=== PATIENT | female | born 1990 | race Caucasian/White ===

== ENCOUNTER 2019-08-19 15:52 | Emergency (ER) | payer SELFPAY | END 2019-08-19 18:35 | disposition home or self-care (01) | PROVIDERS: Emergency Provider Family Medicine; Visit Provider Family Medicine | DX: R10.84 Generalized abdominal pain (principal); J45.909 Unspecified asthma, uncomplicated; Z87.440 Personal history of urinary (tract) infections; F17.210 Nicotine dependence, cigarettes, uncomplicated; Z88.5 Allergy status to narcotic agent; Z91.040 Latex allergy status; Z88.2 Allergy status to sulfonamides | CPT/HCPCS: 36415; 70470; 74177; 80053; 81001; 83690; 84146; 84703; 85025; 96361; 96374; 96375; 96376; 99285; J2270; J2405 ×2; Q9967 ×2 ==

== ENCOUNTER 2019-09-20 23:27 | Emergency (ER) | payer SELFPAY ==
[2019-09-20 23:28] VITALS: BP 120/73; PULSE 86; RESP 16; O2SAT 98
[2019-09-20 23:32] VITALS: BP 120/70; PULSE 87; RESP 15; TEMP 36.2; O2SAT 100; BMI 23.3
[2019-09-20 23:52] LABS: HCG Qualitative Urine. Negative (Negative)
[2019-09-20 23:59] LABS: Basophils % 0.5 %; Eosinophils # 0.1 10^3/uL (0.0-0.8); Eosinophils % 1.5 %; Hematocrit 36.8 % (37.0-47.0); Hemoglobin 12.2 g/dL (11.5-15.3); Lymphocytes # 1.6 10^3/uL (0.8-4.8); Lymphocytes % 18.2 %; Mean Corpuscular HGB Conc 33.2 g/dL (30.0-36.0); Mean Corpuscular Hemoglobin 30.4 pg (28.0-34.0); Mean Corpuscular Volume 91.8 fL (81-99); Mean Platelet Volume 9.9 fL (7.4-10.4); Monocytes # 0.5 10^3/uL (0.2-0.9); Monocytes % 5.4 %; Neutrophils # 6.4 10^3/uL (1.8-7.7); Neutrophils % 74.3 %; Nucleated Red Blood Cells % 0 %; Platelet Count 274 10^3/cmm (130-400); Red Blood Count 4.01 10^6/uL (4.1-5.3); Red Cell Distribution Width 11.7 % (12.1-15.1); White Blood Count 8.6 10^3/uL (4.0-10.0)
[2019-09-21 00:15] LABS: Alanine Aminotransferase 15 U/L (0-33); Albumin Level 4.3 g/dL (3.5-5.2); Alkaline Phosphatase 58 IU/L (35-105); Anion Gap 15.3 (5-19); Aspartate Amino Transferase 19 U/L (0-32); Blood Urea Nitrogen 10 mg/dL (6-20); Calcium 9.3 mg/dL (8.5-10.5); Carbon Dioxide 23 mmol/L (22-29); Chloride 103 mmol/L (98-107); Glomerular Filtration Rate 119.9 mL/min (90-130); Glucose 140 mg/dL (74-109); Potassium 3.3 mmol/L (3.5-5.1); Sodium 138 mmol/L (136-145); Total Bilirubin 0.3 mg/dL (0.15-1.2); Total Protein 7.3 g/dL (6.6-8.7)
--- NOTE | 2019-09-21 01:06 | PC.NURSE ---
Went out to waiting room to ask patient if she could provide a urine specimen, she stated that she did and also stated that her symptoms were worsening, I quickly informed the charge nurse and was told to bring her back. Brought her back to room 11.
--- NOTE | 2019-09-21 01:10 | ED_ITS ---
Entered by Erin Oakley, acting as scribe for Sep 20, 2019 23:27 HPI - Neuro Symptoms/Deficit General: Chief Complaint: Neuro Symptoms/Deficit Stated Complaint: left sided numbness/dizzy/vomiting Time Seen by Provider: 09/21/19 01:08 Source: patient Mode of arrival: wheelchair Limitations: no limitations History of Present Illness: HPI Narrative: 29 yo f came to the er for dizziness, left arm numbess, nausea and vomiting also pain between her shoulder blades. Onset was around 10:30 PM. The patient complains of left-sided tingling but denies any weakness, fever, neck pain or other complaints. The patient states she has had headaches in the past but never had one with this type of sensation. Onset (ago): hour(s) Time: 20:30 Timing confirmed by: spouse Location: left face, left arm and left leg History of same: No Severity: mild Quality: tingling Relieving factors: none Exacerbating factors: none Context: gradual onset On Anticoagulants: No Associated symptoms: Reports headache(s) and tingling; Deny chest pain, diaphoresis, malaise, nausea, syncope or vomiting Review of Systems General: Reports: other (negative unless marked) Const: Denies: fever, chills, body aches, fatigue, malaise or diaphoresis Eyes: Denies: change in vision or blurry vision ENMT: Denies: throat pain, painful swallowing, hoarseness, ear pain, ear discharge, Change in hearing or nasal discharge Card: Denies: chest pain, palpitations, irregular heart rhythm, syncope, pre- syncope, shortness of breath on exertion or shortness of breath when lying down Resp: Denies: shortness of breath, productive cough, non-productive cough, wheezing, coughing up blood or chest congestion GI: Denies: abdominal pain, nausea, vomiting, vomiting blood, coffee grounds in vomit, diarrhea, constipation, cramping, blood in stool or black tarry stool : Denies: flank pain, painful urination, urinary frequency, urinary urgency, decreased urine ouput, urinary incontinence or blood in urine Musc: Denies: neck pain, back pain, extremity pain, extremity swelling, joint pain, joint swelling, joint warmth or joint stiffness Skin/Breast: Denies: rash, skin tenderness or yellow skin Neuro: Reports: headache, dizziness and other (Tingling on left side) Endo: Denies: excessive thirst, tired all the time, cold intolerance, excessive sweating, flushing or hot flashes Abilio/Lymph: Denies: easy bruising, easy bleeding, petechiae or enlarged lymph nodes All/Imm: Denies: hives, throat swelling, tongue swelling, facial swelling or acute wheezing PFSH ED PFSH: Statuses (acute, chronic, etc) shown below reflect problem list status as previously entered and may not be historically accurate Social History Smoking and tobacco status: current every day smoker Current gender identity: Female Female Reproductive History: Date of last menstrual period: 07/25/19 NIH stroke score NIHSS: Level Of Consciousness - 1a: 0 Level Of Consciousness Questions - 1b: Both Correct Level Of Consciousness Commands - 1c: Both Correct Best Gaze - 2: Normal Visual Flowers - 3: No Visual Loss Facial Palsy - 4: Normal Motor Arm Right - 5: No Drift Motor Arm Left - 5: No Drift Motor Leg Right - 6: No Drift Motor Leg Left - 6: No Drift Limb Ataxia - 7: Absent Sensory - 8: Mild To Moderate Loss Best Language - 9: No Aphasia Dysarthia - 10: Normal Extinction And Inattention - 11: 0 Score: Total Score: 1 Physical Exam Const: COMMON NORMALS: no apparent distress, oriented x3, no limitations, healthy appearing and well nourished EXAM LIMITATIONS: no altered mental status GENERAL APPEARANCE: cooperative, well kempt and well developed ORIENTATION/CONSCIOUSNESS: Yes awake HENMT: COMMON NORMALS: normocephalic, head/scalp atraumatic, hearing grossly normal bilaterally, external ears normal, EAC's normal, external nose normal and moist oral mucous membranes HEAD & SCALP: normal to inspection, normocephalic and atraumatic FACE & SINUS: normal facial exam and face symmetric NOSE: external nose normal and nares normal EXTERNAL EAR: Yes external ears normal EXTERNAL AUDITORY CANAL: EAC's normal MOUTH: oral and palatal mucosa normal and tongue normal Eye: COMMON NORMALS: PERRL, EOMs intact bilaterally, conjunctivae normal and no scleral icterus GENERAL EYE: normal appearance of both eyes and normal light reflex CONJUNCTIVA: Yes conjunctivae normal SCLERA: sclerae normal CORNEA: Yes corneas normal PUPIL: Yes PERRL DIRECT OPHTHALMOSCOPY: Yes normal light reflex Neck/C-Spine: COMMON NORMALS: full ROM, no lymphadenopathy, supple, no men ingeal signs and no JVD GENERAL: Yes normal visual inspection and Yes trachea midline CERVICAL SPINE: Yes cervical ROM normal Chest: COMMONS NORMALS: inspection of chest normal and palpation of chest normal Resp: COMMON NORMALS: normal respiratory effort, no retractions, no use of accessory muscles and clear to auscultation bilaterally EFFORT & INSPECTION: Yes able to speak in complete sentences AUSCULTATION: clear to auscultation bilaterally Cardio: COMMON NORMALS: no JVD, regular rate, regular rhythm, S1 normal heart sound, S2 normal heart sound, no gallops, no clicks, no murmurs and no rub JUGULAR VENOUS DISTENTION: no JVD RATE: regular rate RHYTHM: regular rhythm HEART SOUNDS: S1 normal and S2 normal GI: COMMON NORMALS: soft to palpation, non-tender, no hepatosplenomegaly and no masses INSPECTION: Yes normal to inspection PALPATION: Yes soft and Yes no hepatosplenomegaly : COMMON NORMALS: Yes no CVA tenderness BLADDER/KIDNEY EXAM: Yes no CVA tenderness Back/Pelvis: COMMON NORMALS: no CVA tenderness, thoracic and lumbar spine normal to inspection, no thoracic nor lumbar tenderness and thoraco-lumbar ROM normal Extremity: COMMON NORMALS: normal capillary refill, no joint enlargement, no clubbing, cyanosis or edema and no calf tenderness; negative for normal to inspection and negative for full ROM Neuro: COMMON NORMALS: oriented x3, CN's II-XII intact bilaterally, moves all extremities and no sensory deficits noted SENSORIUM/ORIENTATION: Yes other (Decreased sensation, paresthesias to left side. See NIH stroke scale) MENINGEAL SIGNS: Yes no meningeal signs Psych: COMMON NORMALS: mental status grossly normal, thought process normal, cooperative, affect normal, speech normal and activity/motor behavior normal APPEARANCE: Yes well kempt SPEECH: Yes normal speech THOUGHT PROCESS: normal thought process Skin: COMMON NORMALS: no rashes or lesions noted, skin turgor normal, no jaundice, no petechiae and no mottling GENERAL SKIN EXAM: no rashes or lesions noted and turgor normal Course Vital Signs: Vital signs: Vital Signs Temperature 97.2 F L 09/20/19 23:32 Pulse Rate 93 09/21/19 01:36 Respiratory Rate 18 09/21/19 01:36 Blood Pressure 95/51 09/21/19 01:36 Pulse Oximetry 97 09/21/19 01:36 MDM - Neuro Symptoms/Deficit MDM Narrative: Medical decision making narrative: The patient comes in complaining of left-sided tingling and headache. I reviewed the case and in its entirety with Dr. Santos and she agrees this is likely a complicated migraine. The patient has responded appropriately to migraine therapy. She declines any further treatment and would like to go home. She does agree to return should her symptoms change or worsen but at this time she is feeling better and would like to be discharged. Lab Data: Labs: Lab Results 09/20/19 09/20/19 09/20/19 Range/Units 23:40 23:45 23:45 WBC 8.6 (4.0-10.0) 10^3/ uL RBC 4.01 L (4.1-5.3) 10^6/u L Hgb 12.2 (11.5-15.3) g/dL Hct 36.8 L (37.0-47.0) % MCV 91.8 (81-99) fL MCH 30.4 (28.0-34.0) pg MCHC 33.2 (30.0-36.0) g/dL RDW 11.7 L (12.1-15.1) % Plt Count 274 (130-400) 10^3/c mm MPV 9.9 (7.4-10.4) fL Neut % (Auto) 74.3 % Lymph % (Auto) 18.2 % Cole % (Auto) 5.4 % Eos % (Auto) 1.5 % Baso % (Auto) 0.5 % Neut # (Auto) 6.4 (1.8-7.7) 10^3/u L Lymph # (Auto) 1.6 (0.8-4.8) 10^3/u L Cole # (Auto) 0.5 (0.2-0.9) 10^3/u L Eos # (Auto) 0.1 (0.0-0.8) 10^3/u L Baso # (Auto) 0.0 (0.0-0.1) 10^3/u L Nucleated RBC % (a uto) 0 % Nucleated RBCs # 0.0 /100WBC Sodium 138 (136-145) mmol/L Potassium 3.3 L (3.5-5.1) mmol/L Chloride 103 (98-107) mmol/L Carbon Dioxide 23 (22-29) mmol/L Anion Gap 15.3 (5-19) BUN 10 (6-20) mg/dL Creatinine 0.6 (0.5-0.9) mg/dL GFR Calculation 119.9 (90-130) mL/min Glucose 140 H (74-109) mg/dL Calcium 9.3 (8.5-10.5) mg/dL Total Bilirubin 0.3 (0.15-1.2) mg/dL AST 19 (0-32) U/L ALT 15 (0-33) U/L Alkaline Phosphata se 58 (35-105) IU/L Total Protein 7.3 (6.6-8.7) g/dL Albumin 4.3 (3.5-5.2) g/dL Globulin 3.0 (1.3-4.6) g/dL HCG, Qual Negative (Negative) Imaging Data^: CT Head: Radiologist's impression: [place] [address] CT Scan Report Signed Patient: Mateus English Unit #: [id number] : 1990 Age/Sex: 29 / F ADM Date: 09/20/19 Loc: ER Room/Bed: Attending Dr: Ordering Provider/Ordering MD: Katrin Avitia DO Date of Service: 09/21/19 Procedure(s): CT head wo con* [id number] Accession Number(s): [id number] Report Number: [id number] PROCEDURE INFORMATION: Exam: CT Head Without Contrast Exam date and time: 09/21/2019 1:21 AM Age: 29 years old Clinical indication: Pain; Altered mental status/memory loss; Headache not specified; Additional info: Luu/ams TECHNIQUE: Imaging protocol: Computed tomography of the head without contrast. Total DLP: 685.54 mGy-cm Radiation optimization: All CT scans at this facility use at least one of these dose optimization techniques: automated exposure control; mA and/or kV adjustment per patient size (includes targeted exams where dose is matched to clinical indication); or iterative reconstruction. COMPARISON: [place] [id number] 08/19/2019 4:40 PM FINDINGS: Brain: Normal. No hemorrhage or CT evidence of acute infarction is seen. No mass effect. Ventricles: Normal. No ventriculomegaly. Bones/joints: Unremarkable. No acute fracture. Sinuses: Visualized sinuses are unremarkable. No fluid levels. Mastoid air cells: Visualized mastoid air cells are well aerated. Soft tissues: Unremarkable. CT/CT head wo con* [id number] IMPRESSION: No acute intracranial abnormality. Radiation Dose CTDIVOL = (mGy): DLP = 685.54 (mGy-cm) Dictated By: Anderson Dominguez MD Signed By: Anderson Dominguez MD Signed Date/Time: 09/21/19240 DD/ 8 Other Imaging: Radiologist's impression: [place] [address] CT Scan Report Signed Patient: Mateus English Unit #: [id number] : 1990 Age/Sex: 29 / F ADM Date: 09/20/19 Loc: ER Room/Bed: Attending Dr: Ordering Provider/Ordering MD: Katrin Avitia DO Date of Service: 09/21/19 Procedure(s): CT angio headneck* [id number] Accession Number(s): [id number] Report Number: [id number] PROCEDURE INFORMATION: Exam: CT Angiography Head With Contrast Exam date and time: 09/21/2019 1:21 AM Age: 29 years old Clinical indication: Pain; Headache; Additional info: Headache/numbness TECHNIQUE: Imaging protocol: Computed tomography angiography of the head with intravenous contrast. 3D rendering: MIP and/or 3D reconstructed images were created by the technologist. Total DLP: 1675.58 mGy-cm Radiation optimization: All CT scans at this facility use at least one of these dose optimization techniques: automated exposure control; mA and/or kV adjustment per patient size (includes targeted exams where dose is matched to clinical indication); or iterative reconstruction. Contrast material: OMNI 350; Contrast volume: 75 ml; Contrast route: 20G; COMPARISON: [place] [id number] 08/19/2019 4:40 PM FINDINGS: Right internal carotid artery: Unremarkable. Intracranial segment is patent with no significant stenosis. No aneurysm. Right anterior cerebral artery: Unremarkable. No occlusion or significant stenosis. No aneurysm. Right middle cerebral artery: Unremarkable. No occlusion or significant stenosis. No aneurysm. Right posterior cerebral artery: Unremarkable. No occlusion or significant stenosis. No aneurysm. Right vertebral artery: Unremarkable. No occlusion or significant stenosis. No aneurysm. Left internal carotid artery: Unremarkable. Intracranial segment is patent with no significant stenosis. No aneurysm. Left anterior cerebral artery: Unremarkable. No occlusion or significant stenosis. No aneurysm. Left middle cerebral artery: Unremarkable. No occlusion or significant stenosis. No aneurysm. Left posterior cerebral artery: Unremarkable. No occlusion or significant stenosis. No aneurysm. Left vertebral artery: Unremarkable. No occlusion or significant stenosis. No aneurysm. Basilar artery: Unremarkable. No occlusion or significant stenosis. No aneurysm. IMPRESSION: Patent intracranial arteries. No aneurysm is seen. PROCEDURE INFORMATION: Exam: CT Angiography Neck With Contrast Exam date and time: 09/21/2019 1:21 AM Age: 29 years old Clinical indication: Pain; Headache; Additional info: Headache/numbness TECHNIQUE: Imaging protocol: Computed tomography angiography of the neck with intravenous contrast. 3D rendering: MIP and/or 3D reconstructed images were created by the technologist. Total DLP: 1675.58 mGy-cm Radiation optimization: All CT scans at this facility use at least one of these dose optimization techniques: automated exposure control; mA and/or kV adjustment per patient size (includes targeted exams where dose is matched to clinical indication); or iterative reconstruction. Contrast material: OMNI 350; Contrast volume: 75 ml; Contrast route: 20G; COMPARISON: [place] [id number] 08/19/2019 4:40 PM FINDINGS: VASCULATURE: Right common carotid artery: Unremarkable. No stenosis. No dissection or occlusion. Right internal carotid artery: Mild patient motion limits evaluation of the distal right ICA. Otherwise, the right ICA is patent Right external carotid artery: Unremarkable. No occlusion or stenosis of the origin. Right vertebral artery: Unremarkable. No stenosis. No dissection or occlusion. Left common carotid artery: Unremarkable. No stenosis. No dissection or occlusion. Left internal carotid artery: Mild patient motion limits evaluation of the distal left ICA. Otherwise, the left ICA is patent. Left external carotid artery: Unremarkable. No occlusion or stenosis of the origin. Left vertebral artery: Unremarkable. No stenosis. No dissection or occlusion. NECK: Bones/joints: No acute fracture. Soft tissues: Normal. No significant soft tissue swelling. CT/CT angio headneck* [id number] IMPRESSION: Limited evaluation of bilateral distal ICAs due to motion. Otherwise, the visualized neck carotid and vertebral arteries are patent. Radiation Dose CTDIVOL = (mGy): DLP = 1675.58 1675.58 (mGy-cm) Dictated By: Anderson Dominguez MD Signed By: Anderson Dominguez MD Signed Date/Time: 09/21/19247 DD/ 6 Discharge Plan Discharge Patient Disposition: Home, Self-Care Clinical Impression: Hemiplegic migraine Qualifiers: Status migrainosus presence: without status migrainosus Intractability: not intractable Qualified Code(s): G43.409 - Hemiplegic migraine, not intractable, without status migrainosus Condition: Stable Prescriptions: No Action acetaminophen [Tylenol] 325 mg capsule 325 mg PO ONCE PRNRF: 0 ibuprofen 200 mg capsule 200 mg PO Q6H PRNRF: 0 Discharge Orders: Discharge Order (Routine); Ordered 09/21/19 Ordered By: Katrin Avitia Referrals: Graham Nur MD [Primary Care Provider] - 1-3 days Discharge Diet: Advance as tolerated Discharge Activity: Resume usual activity Patient Instructions: Migraine Headache (ED) Activity Restrictions/Additional Instructions: Please return to the ER immediately for any of the signs or symptoms listed on your discharge instruction sheets, worsening/changing of your symptoms, you are not getting better as quickly as expected, or for ANY other cause or concerns. Stand Alone Forms: Work/School Release Discharge Date/Time: 09/21/19 03:30 Coding Level of Care Code ED Wallpaper Hanger for Chg Fwd Exam Problem Focused The documentation recorded by the Adin maradiaga Stephanie Lyn, accurately reflects the service I personally performed and the decisions made by Adore burciaga Eli N Sep 20, 2019 23:27
--- NOTE | 2019-09-21 01:11 | PC.NURSE ---
Addendum entered by Tee Flores 09/21/19 01:16: Patient also complaining of headache and pain left arm with tingling Original Note: Introduced self to patient and initiated vital signs. Pt is A&O x 4 and agreeable. Pt states that the reason for the ER visit today is due to left sided numbness which presented around 2229 today. Pt also complaining of nausea and vomiting which occurred just prior to numbness Reassured patient of needs and will continue to monitor. Provider at bedside.
--- NOTE | 2019-09-21 01:19 | CTR_ITS ---
PROCEDURE INFORMATION: Exam: CT Angiography Head With Contrast Exam date and time: 09/21/2019 1:21 AM Age: 29 years old Clinical indication: Pain; Headache; Additional info: Headache/numbness TECHNIQUE: Imaging protocol: Computed tomography angiography of the head with intravenous contrast. 3D rendering: MIP and/or 3D reconstructed images were created by the technologist. Total DLP: 1675.58 mGy-cm Radiation optimization: All CT scans at this facility use at least one of these dose optimization techniques: automated exposure control; mA and/or kV adjustment per patient size (includes targeted exams where dose is matched to clinical indication); or iterative reconstruction. Contrast material: OMNI 350; Contrast volume: 75 ml; Contrast route: 20G; COMPARISON: [place] [facility] [place] [id number] 08/19/2019 4:40 PM FINDINGS: Right internal carotid artery: Unremarkable. Intracranial segment is patent with no significant stenosis. No aneurysm. Right anterior cerebral artery: Unremarkable. No occlusion or significant stenosis. No aneurysm. Right middle cerebral artery: Unremarkable. No occlusion or significant stenosis. No aneurysm. Right posterior cerebral artery: Unremarkable. No occlusion or significant stenosis. No aneurysm. Right vertebral artery: Unremarkable. No occlusion or significant stenosis. No aneurysm. Left internal carotid artery: Unremarkable. Intracranial segment is patent with no significant stenosis. No aneurysm. Left anterior cerebral artery: Unremarkable. No occlusion or significant stenosis. No aneurysm. Left middle cerebral artery: Unremarkable. No occlusion or significant stenosis. No aneurysm. Left posterior cerebral artery: Unremarkable. No occlusion or significant stenosis. No aneurysm. Left vertebral artery: Unremarkable. No occlusion or significant stenosis. No aneurysm. Basilar artery: Unremarkable. No occlusion or significant stenosis. No aneurysm. IMPRESSION: Patent intracranial arteries. No aneurysm is seen. PROCEDURE INFORMATION: Exam: CT Angiography Neck With Contrast Exam date and time: 09/21/2019 1:21 AM Age: 29 years old Clinical indication: Pain; Headache; Additional info: Headache/numbness TECHNIQUE: Imaging protocol: Computed tomography angiography of the neck with intravenous contrast. 3D rendering: MIP and/or 3D reconstructed images were created by the technologist. Total DLP: 1675.58 mGy-cm Radiation optimization: All CT scans at this facility use at least one of these dose optimization techniques: automated exposure control; mA and/or kV adjustment per patient size (includes targeted exams where dose is matched to clinical indication); or iterative reconstruction. Contrast material: OMNI 350; Contrast volume: 75 ml; Contrast route: 20G; COMPARISON: [place] [facility] [place] [id number] 08/19/2019 4:40 PM FINDINGS: VASCULATURE: Right common carotid artery: Unremarkable. No stenosis. No dissection or occlusion. Right internal carotid artery: Mild patient motion limits evaluation of the distal right ICA. Otherwise, the right ICA is patent Right external carotid artery: Unremarkable. No occlusion or stenosis of the origin. Right vertebral artery: Unremarkable. No stenosis. No dissection or occlusion. Left common carotid artery: Unremarkable. No stenosis. No dissection or occlusion. Left internal carotid artery: Mild patient motion limits evaluation of the distal left ICA. Otherwise, the left ICA is patent. Left external carotid artery: Unremarkable. No occlusion or stenosis of the origin. Left vertebral artery: Unremarkable. No stenosis. No dissection or occlusion. NECK: Bones/joints: No acute fracture. Soft tissues: Normal. No significant soft tissue swelling. CT/CT angio headneck* [id number] IMPRESSION: Limited evaluation of bilateral distal ICAs due to motion. Otherwise, the visualized neck carotid and vertebral arteries are patent. Radiation Dose CTDIVOL = (mGy): DLP = 1675.58~1675.58 (mGy-cm)
--- NOTE | 2019-09-21 01:19 | CTR_ITS ---
PROCEDURE INFORMATION: Exam: CT Head Without Contrast Exam date and time: 09/21/2019 1:21 AM Age: 29 years old Clinical indication: Pain; Altered mental status/memory loss; Headache not specified; Additional info: Luu/ams TECHNIQUE: Imaging protocol: Computed tomography of the head without contrast. Total DLP: 685.54 mGy-cm Radiation optimization: All CT scans at this facility use at least one of these dose optimization techniques: automated exposure control; mA and/or kV adjustment per patient size (includes targeted exams where dose is matched to clinical indication); or iterative reconstruction. COMPARISON: [place] [id number] 08/19/2019 4:40 PM FINDINGS: Brain: Normal. No hemorrhage or CT evidence of acute infarction is seen. No mass effect. Ventricles: Normal. No ventriculomegaly. Bones/joints: Unremarkable. No acute fracture. Sinuses: Visualized sinuses are unremarkable. No fluid levels. Mastoid air cells: Visualized mastoid air cells are well aerated. Soft tissues: Unremarkable. CT/CT head wo con* [id number] IMPRESSION: No acute intracranial abnormality. Radiation Dose CTDIVOL = (mGy): DLP = 685.54 (mGy-cm)
[2019-09-21 01:36] VITALS: BP 95/51; PULSE 93; RESP 18; O2SAT 97
[2019-09-21] MEDS: metoclopramide 5 mg/mL SDV 2 mL IV ×2 (01:36→02:40)
[2019-09-21] MEDS: iohexol 350 mg/mL 100 mL Btl IV (02:18)
[2019-09-21] MEDS: diphenhydrAMINE 50 mg/mL SDV 1mL 25 MG IVP (02:41)
== END 2019-09-21 03:30 | disposition home or self-care (01) ==
PROVIDERS: Emergency Provider Emergency Medicine; PCP Family Medicine
DX: G43.409 Hemiplegic migraine, not intractable, without status migrainosus (principal); F17.210 Nicotine dependence, cigarettes, uncomplicated
CPT/HCPCS: 70450; 70496; 70498; 80053; 81025; 85025; 96365; 96374; 96375; 96376; 99283; 99284; J0131; J1200; J2765; Q9967

== ENCOUNTER → 2019-09-26 12:25 | Outpatient (BNVA) | payer SELFPAY | PROVIDERS: PCP Family Medicine; Referring Provider Nurse Practitioner Family; Visit Provider Specialist | DX: R29.90 Unspecified symptoms and signs involving the nervous system (principal); G45.9 Transient cerebral ischemic attack, unspecified; G43.019 Migraine without aura, intractable, without status migrainosus | CPT/HCPCS: 99204 ==

== ENCOUNTER 2019-11-11 15:52 | Emergency (ER) | payer SELFPAY ==
[2019-11-11 16:05] VITALS: BP 123/62; PULSE 77; RESP 16; TEMP 36.8; O2SAT 98; BMI 22.4
--- NOTE | 2019-11-11 16:21 | ED_ITS ---
HPI - URI/Sore Throat General: Chief Complaint: Fever Stated Complaint: FEVER , SORE THROAT, RASH Time Seen by Provider: 11/11/19 16:05 Source: patient Mode of arrival: ambulatory Limitations: no limitations History of Present Illness: HPI Narrative: Patient is a 29-year-old female who presents to ED today with complaints of a sore throat, cough, congestion over the past 3 to 4 days. She reports fevers as high as 102 although she is afebrile upon arrival. Patient also reports a rash that she noticed yesterday that was responsive to Benadryl. She does not present with a rash currently. No recent travel. MD elicited complaint: fever, cough, sore throat and nasal congestion Exacerbating factors: nothing Relieving factors: nothing Context: sick contacts ( with similar symptoms ) Associated symptoms: Reports fever(s), nasal congestion and sinus pain; Deny abdominal pain, chills, chest pain, diarrhea, epistaxis, ear or mastoid pain, headache(s), nausea or vomiting Treatments prior to arrival: acetaminophen and ibuprofen Review of Systems General: Reports: 10 or more systems reviewed and unremarkable except in HPI and below Const: Reports: fever; Denies: chills, body aches, change in appetite, change in weight or fatigue Eyes: Denies: change in vision, blurry vision, photophobia, eye discomfort or eye discharge ENMT: Reports: throat pain, painful swallowing, nasal discharge, nasal congestion and facial/sinus pain; Denies: enlarged tonsils, swelling of lips/tongue, oral sores/lesions, dental pain, ear pain, ear discharge, nose bleeds or post nasal drip Card: Denies: chest pain, palpitations, irregular heart rhythm, edema, lightheadedness, syncope, pre-syncope or shortness of breath when lying down Resp: Reports: productive cough and chest congestion; Denies: shortness of breath, non-productive cough or pain on inspiration GI: Denies: abdominal pain, nausea, vomiting or diarrhea Musc: Denies: neck pain or back pain Skin/Breast: Reports: rash (subsided now) Neuro: Denies: headache, numbness in extremities, weakness in extremities or changes in sensation All/Imm: Denies: facial swelling or seasonal allergies PFSH ED PFSH: Social History Smoking and tobacco status: current some day smoker cigarettes [ Other cigarette details: 3 cig every other day ] Alcohol intake: current Alcohol intake frequency: few times a month History of recent travel: No Current gender identity: Female Female Reproductive History: Date of last menstrual period: 07/25/19 Physical Exam Const: COMMON NORMALS: no apparent distress, average body habitus, oriented x3, no limitations, healthy appearing, alert and well nourished HENMT: COMMON NORMALS: normocephalic, head/scalp atraumatic, hearing grossly normal bilaterally, external ears normal, EAC's normal, TM's normal bilaterally, external nose normal, nasal mucous membranes and turbinates normal and moist oral mucous membranes HEAD & SCALP: normal to inspection, normocephalic and atraumatic FACE & SINUS: normal facial exam and sinuses nontender NOSE: external nose normal and nasal mucous membranes and turbinates normal EXTERNAL EAR: Yes external ears normal EXTERNAL AUDITORY CANAL: EAC's normal TYMPANIC MEMBRANE: TM's normal bilaterally MOUTH: oral and palatal mucosa normal, lip normal and tongue normal THROAT: posterior oropharynx normal, tonsils normal and uvula midline Eye: COMMON NORMALS: PERRL, EOMs intact bilaterally and conjunctivae normal CONJUNCTIVA: Yes conjunctivae normal PUPIL: Yes PERRL Neck/C-Spine: GENERAL: Yes lymphadenopathy (mild bilateral anterior ) Resp: COMMON NORMALS: normal respiratory effort and clear to auscultation bilaterally AUSCULTATION: clear to auscultation bilaterally Cardio: COMMON NORMALS: regular rate and regular rhythm RATE: regular rate RHYTHM: regular rhythm Neuro: COMMON NORMALS: oriented x3 SENSORIUM/ORIENTATION: Yes alert Skin: COMMON NORMALS: no rashes or lesions noted GENERAL SKIN EXAM: no rashes or lesions noted Course Vital Signs: Vital signs: Vital Signs Temperature 98.2 F 11/11/19 16:05 Pulse Rate 77 11/11/19 16:05 Respiratory Rate 16 11/11/19 16:05 Blood Pressure 123/62 11/11/19 16:05 Pulse Oximetry 98 11/11/19 16:05 MDM - URI/Sore Throat Lab Data: Labs: Lab Results 11/11/19 11/11/19 Range/Units 16:21 16:21 Influenza Type A A g Negative (Negative) POC Influenza B Ag Negative (Negative) Group A Strep Rapi d Negative (Negative) Discharge Plan Discharge Patient Disposition: Home, Self-Care Clinical Impression: Upper respiratory infection, viral Condition: Stable Prescriptions: No Action Women's Daily Formula 27-0.4 mg tablet PO ONCE RF: 0 acetaminophen [Tylenol] 325 mg capsule 325 mg PO ONCE PRNRF: 0 ibuprofen 200 mg capsule 200 mg PO Q6H PRNRF: 0 topiramate [Topamax] 50 mg tablet 50 mg PO BID Qty: 30 RF: 5 Discharge Orders: Discharge Order (Routine); Ordered 11/11/19 Ordered By: Christine Keith Referrals: Graham Nur MD [Primary Care Provider] - Discharge Diet: Usual diet Discharge Activity: Increase activity as tolerated Patient Instructions: Upper Respiratory Infection (ED), Viral Syndrome (ED) Coding Level of Care Code ED Physician Scientist for Janiya Fwd Exam Detailed
[2019-11-11 16:45] LABS: Rapid Strep A Test Negative (Negative)
[2019-11-11 17:01] LABS: Influenza A by IFA Negative (Negative)
[2019-11-11 17:02] LABS: Influenza B by IFA Negative (Negative)
[2019-11-11 17:15] VITALS: BP 121/69; PULSE 88; RESP 16; O2SAT 99
== END 2019-11-11 17:15 | disposition home or self-care (01) ==
PROVIDERS: Emergency Provider Physician Assistant; PCP Family Medicine
DX: J06.9 Acute upper respiratory infection, unspecified (principal); F17.210 Nicotine dependence, cigarettes, uncomplicated
CPT/HCPCS: 12345; 87081; 87804; 87880; 99282

== ENCOUNTER 2020-02-27 17:29 | Emergency (ER) | payer SELFPAY ==
[2020-02-27 17:33] VITALS: BP 104/66; PULSE 87; RESP 18; TEMP 36.5; O2SAT 96; BMI 24.0
--- NOTE | 2020-02-27 17:48 | ED_ITS ---
HPI - Female Genitourinary General: Chief complaint: Urogenital-Female Stated complaint: abd/pelvic pain Time Seen by Provider: 02/27/20 17:43 History of Present Illness: HPI Narrative: Patient is a 30-year-old female comes to the ED with abdominal pain and mild discomfort when she urinates. Patient said symptoms started approximately 2 days ago. She describes the pelvic pain is starting centrally over the bladder and then it shoots up on both sides of the pelvis. Pain described as cramping. She currently rates the pain an 8 out of 10. She says she is to drink a lot of fluids and taking ibuprofen and Tylenol to help with pain at home and nothing has improved it. She denies any blood in the urine but does describe some pain when urinating. Denies any vaginal discharge or vaginal bleeding. Patient's last period was approximately 3 weeks ago. She states that she has had her tubes tied. Patient does have a history of some constipation and says that she usually goes every couple days between bowel movements. Sometimes she has to strain for bowel movements as well. Denies any fever, chills, nausea, vomiting, diarrhea, constipation, blood in the stool or hematuria. Associated symptoms: Reports abdominal pain (RLQ and LLQ); Deny headache(s) or nausea Date of Last Menstrual Period: 07/25/19 Review of Systems Const: Denies: fever(s), chills or fatigue Eyes: Denies: change in vision or eye discomfort ENMT: Denies: throat pain, odynophagia, nasal discharge or nasal congestion Card: Denies: chest pain, palpitations, edema, swelling of feet/ankles, dyspnea on exertion or orthopnea Resp: Denies: dyspnea, productive cough or non-productive cough GI: Reports: abdominal pain (RLQ and LLQ) and constipation; Denies: nausea, vomiting, diarrhea or hematochezia : Reports: dysuria and pelvic pain; Denies: flank pain or hematuria Musc: Denies: neck pain, back pain or extremity swelling Skin/Breast: Denies: rash or new lesions Neuro: Denies: headache(s), numbness in extremities or weakness in extremities PFSH ED PFSH: Surgical History History of cholecystectomy History of tubal ligation Hx of appendectomy Family History Other CAD (coronary artery disease) Cancer Diabetes Hypertension Stroke Social History Smoking and tobacco status: current some day smoker cigarettes [ Other cigarette details: 3 cig every other day ] Alcohol intake: current Alcohol intake frequency: few times a month History of recent travel: No Current gender identity: Female Female Reproductive History: Date of last menstrual period: 07/25/19 Physical Exam Const: COMMON NORMALS: patient oriented x3 and alert GENERAL APPEARANCE: cooperative, in distress (Patient was laying in the position with her arms around her stomach and was constantly moving and appeared uncomfortable. Emotional due to pain.) and well hydrated HENMT: COMMON NORMALS: normocephalic HEAD & SCALP: normocephalic MOUTH: Normal oral and palatal mucosa present THROAT: posterior oropharynx normal and uvula midline Eye: COMMON NORMALS: Equal, round and reactive pupils present PUPIL: Yes Equal, round and reactive pupils present Neck/C-Spine: COMMON NORMALS: supple GENERAL: Yes normal visual inspection Resp: COMMON NORMALS: normal respiratory effort, No retractions, No use of accessory muscles and clear to auscultation bilaterally AUSCULTATION: clear to auscultation bilaterally Cardio: COMMON NORMALS: regular rate, regular rhythm, S1 normal heart sound present, S2 normal heart sound present, No gallops present (Cardio), No clicks present (Cardio), No murmurs present (Cardio) and Peripheral pulses 2+ throughout RATE: regular rate RHYTHM: regular rhythm HEART SOUNDS: S1 normal heart sound present and S2 normal heart sound present PERIPHERAL PULSES: Peripheral pulses 2+ throughout GI: COMMON NORMALS: Normal to inspection, nondistended, normoactive bowel sounds present, Soft to palpation and no masses PALPATION: Yes Soft to palpation, Yes Tenderness to palpation present (GI) Details: LLQ, RLQ and other (Pelvic pain and she also has some tenderness in the right and left lower quadrants.) and Yes Bladder palpation abnormal : COMMON NORMALS: Yes no CVA tenderness BLADDER/KIDNEY EXAM: Yes no CVA tenderness and Yes Bladder palpation abnormal Bladder abnormal details: tender (mild tenderness) Back/Pelvis: COMMON NORMALS: no CVA tenderness Extremity: COMMON NORMALS: normal to inspection and no pedal edema Neuro: COMMON NORMALS: patient oriented x3 and moves all extremities SENSORIUM/ORIENTATION: Yes alert Skin: COMMON NORMALS: no rashes or lesions noted GENERAL SKIN EXAM: no rashes or lesions noted and dry skin Course Vital Signs: Vital signs: Vital Signs Temperature 97.7 F 02/27/20 17:33 Pulse Rate 78 02/27/20 21:27 Respiratory Rate 18 02/27/20 21:27 Blood Pressure 112/68 02/27/20 21:27 Pulse Oximetry 98 02/27/20 21:27 MDM - Female MDM Narrative: Medical decision making narrative: Patient is a 30-year-old female comes to the ED with abdominal pain. She said she has had some trouble with constipation recently. Exam showed a patient in pain and discomfort and was clutching her stomach with her arms and in the position on the exam bed. She was also emotional due to pain. Some lower pelvic tenderness and also tenderness right and left lower quadrants of the abdomen. CBC, CMP, UA and lipase were all unremarkable. hCG was negative. CT of the abdomen showed Mildly dilated fluid-filled loops of proximal small bowel could represent ileus or enteritis. patient was given IV fluids, Zofran and morphine while here in the ED. Patient's pain was not controlled with morphine so she was given some Dilaudid and pain was then controlled. Once patient's pain was controlled she felt a lot better and was ready to go home and rest. Patient was diagnosed with viral gastroenteritis. She was discharged with a prescription for MiraLAX and Bentyl. She was told to drink plenty of fluids and stay hydrated. Follow-up with PCP in 7 to 10 days. She can return to ED if symptoms worsen. Patient understood and agreed with plan. Lab Data: Attestation: I reviewed the patient's lab results. Labs: Lab Results 02/27/20 02/27/20 02/27/20 Range/Units 17:56 17:56 18:42 WBC 7.8 (4.0-10.0) 10^3/ uL RBC 3.99 L (4.1-5.3) 10^6/u L Hgb 12.1 (11.5-15.3) g/dL Hct 36.4 L (37.0-47.0) % MCV 91.2 (81-99) fL MCH 30.3 (28.0-34.0) pg MCHC 33.2 (30.0-36.0) g/dL RDW 11.4 L (12.1-15.1) % Plt Count 261 (130-400) 10^3/c mm MPV 9.9 (7.4-10.4) fL Neut % (Auto) 68.4 % Lymph % (Auto) 21.2 % [place] % (Auto) 6.8 % Eos % (Auto) 2.7 % Baso % (Auto) 0.6 % Neut # (Auto) 5.31 (1.8-7.7) 10^3/u L Lymph # (Auto) 1.7 (0.8-4.8) 10^3/u L [place] # (Auto) 0.5 (0.2-0.9) 10^3/u L Eos # (Auto) 0.2 (0.0-0.8) 10^3/u L Baso # (Auto) 0.1 (0.0-0.1) 10^3/u L Nucleated RBC % (a uto) 0 % Nucleated RBCs # 0.0 /100WBC Sodium 139 (136-145) mmol/L Potassium 4.1 (3.5-5.1) mmol/L Chloride 104 (98-107) mmol/L Carbon Dioxide 26 (22-29) mmol/L Anion Gap 13.1 (5-19) BUN 9 (6-20) mg/dL Creatinine 0.5 (0.5-0.9) mg/dL GFR Calculation 146.9 H (90-130) mL/min Glucose 98 (65-115) mg/dL Calculated Osmolal ity 284 L (285-295) mOsm/k g Calcium 9.4 (8.5-10.5) mg/dL Total Bilirubin 0.2 (0.15-1.2) mg/dL AST 16 (0-32) U/L ALT 10 (0-33) U/L Alkaline Phosphata se 50 (35-105) IU/L Total Protein 6.7 (6.6-8.7) g/dL Albumin 4.2 (3.5-5.2) g/dL Globulin 2.5 (1.3-4.6) g/dL Lipase 19 (13-60) U/L HCG, Qual Negative (Negative) Urine Color (Yellow) Urine Appearance (CLEAR) Urine pH (5-7) Ur Specific Gravit y (1.005-1.030) Urine Protein (Negative) Urine Glucose (UA) (Normal) Urine Ketones (Negative) Urine Blood (Negative) Urine Nitrate (Negative) Urine Bilirubin (NEGATIVE) Urine Urobilinogen (Negative) mg/dL Ur Leukocyte Cornelia ase (Negative) Urine RBC (0-2) /hpf Urine WBC (0-5) /hpf Ur Squamous Epith Cells (0-5) Amorphous Sediment Urine Bacteria (NONE) 02/27/20 Range/Units 18:42 WBC (4.0-10.0) 10^3/ uL RBC (4.1-5.3) 10^6/u L Hgb (11.5-15.3) g/dL Hct (37.0-47.0) % MCV (81-99) fL MCH (28.0-34.0) pg MCHC (30.0-36.0) g/dL RDW (12.1-15.1) % Plt Count (130-400) 10^3/c mm MPV (7.4-10.4) fL Neut % (Auto) % Lymph % (Auto) % [place] % (Auto) % Eos % (Auto) % Baso % (Auto) % Neut # (Auto) (1.8-7.7) 10^3/u L Lymph # (Auto) (0.8-4.8) 10^3/u L [place] # (Auto) (0.2-0.9) 10^3/u L Eos # (Auto) (0.0-0.8) 10^3/u L Baso # (Auto) (0.0-0.1) 10^3/u L Nucleated RBC % (a uto) % Nucleated RBCs # /100WBC Sodium (136-145) mmol/L Potassium (3.5-5.1) mmol/L Chloride (98-107) mmol/L Carbon Dioxide (22-29) mmol/L Anion Gap (5-19) BUN (6-20) mg/dL Creatinine (0.5-0.9) mg/dL GFR Calculation (90-130) mL/min Glucose (65-115) mg/dL Calculated Osmolal ity (285-295) mOsm/k g Calcium (8.5-10.5) mg/dL Total Bilirubin (0.15-1.2) mg/dL AST (0-32) U/L ALT (0-33) U/L Alkaline Phosphata se (35-105) IU/L Total Protein (6.6-8.7) g/dL Albumin (3.5-5.2) g/dL Globulin (1.3-4.6) g/dL Lipase (13-60) U/L HCG, Qual (Negative) Urine Color Straw (Yellow) Urine Appearance Clear (CLEAR) Urine pH 5 (5-7) Ur Specific Gravit y 1.010 (1.005-1.030) Urine Protein Neg (Negative) Urine Glucose (UA) Norm (Normal) Urine Ketones Negative (Negative) Urine Blood Neg (Negative) Urine Nitrate Negative (Negative) Urine Bilirubin Neg (NEGATIVE) Urine Urobilinogen Norm (Negative) mg/dL Ur Leukocyte Cornelia ase 2+ H (Negative) Urine RBC 0-4 H (0-2) /hpf Urine WBC 5-10 H (0-5) /hpf Ur Squamous Epith Cells 0-4 H (0-5) Amorphous Sediment Not Reportable Urine Bacteria Trace (NONE) Imaging Data: CT Abd/Pel: Attestation: I personally reviewed and interpreted this imaging study as follows: Radiologist's impression: [place] [address] CT Scan Report Signed Patient: Mateus English Unit #: [id number] : 1990 Age/Sex: 30 / F ADM Date: 02/27/20 Loc: ER Room/Bed: Attending Dr: Ordering Provider/Ordering MD: nOur Caballero Date of Service: 02/27/20 Procedure(s): CT abdomen pelvis w con* [id number] Accession Number(s): [id number] Report Number: [id number] PROCEDURE INFORMATION: Exam: CT Abdomen And Pelvis With Contrast Exam date and time: 02/27/2020 7:15 PM Age: 30 years old Clinical indication: Abdominal pain and other: Pelvic; Acute; Prior surgery; Surgery date: 6+ months; Surgery type: Appy, gb, tubal TECHNIQUE: Imaging protocol: Computed tomography of the abdomen and pelvis with intravenous contrast. Radiation optimization: All CT scans at this facility use at least one of these dose optimization techniques: automated exposure control; mA and/or kV adjustment per patient size (includes targeted exams where dose is matched to clinical indication); or iterative reconstruction. Contrast material: OMNI 300; Contrast volume: 75 ml; Contrast route: INTRAVENOUS (IV); COMPARISON: CT abdomen pelvis w con* [id number] 08/19/2019 4:36 PM RADIATION DOSE METRICS: Total DLP (mGy-cm): 506.02 FINDINGS: Liver: Unremarkable. Gallbladder and bile ducts: Cholecystectomy. Mild prominence of the bile ducts is most likely reservoir effect. Pancreas: Normal. No ductal dilation. Spleen: Normal. No splenomegaly. Adrenals: Normal. No mass. Kidneys and ureters: Normal. No hydronephrosis. Stomach and bowel: There are a few loops of mildly dilated fluid-filled proximal small bowel measuring up to 2.9 cm. No small bowel obstruction. The stomach and colon are unremarkable. Appendix: The appendix is absent. Intraperitoneal space: Small amount of pelvic fluid is most likely physiologic. Vasculature: Unremarkable. No abdominal aortic aneurysm. Lymph nodes: Subcentimeter mesenteric lymph nodes are unchanged and most likely reactive. Bladder: Unremarkable as visualized. Reproductive: Prominent bilateral adnexal vessels. Physiologic enhancement of the right ovary. The uterus and left ovary are unremarkable. Bones/joints: Unremarkable. No acute fracture. Soft tissues: Unremarkable. CT/CT abdomen pelvis w con* [id number] IMPRESSION: 1. Mildly dilated fluid-filled loops of proximal small bowel could represent ileus or enteritis. 2. Stable mild mesenteric adenitis. 3. Stable fluid in the pelvis, most likely physiologic. Radiation Dose CTDIVOL = (mGy): DLP = 506.02 (mGy-cm) Dictated By: Jean De Signed By: Jean De Signed Date/Time: 02/27/202004 DD/ 03 Discharge Plan Discharge Patient Disposition: Home, Self-Care Clinical Impression: Viral gastroenteritis Constipation Qualifiers: Constipation type: unspecified constipation type Qualified Code(s): K59.00 - Constipation, unspecified Condition: Stable Prescriptions: New dicyclomine 20 mg tablet 20 mg PO QID Qty: 30 RF: 0 Miralax 17 gram/dose powder 17 gm PO DAILY PRN (Reason: constipation) Qty: 119 RF: 0 No Action Women's Daily Formula 27-0.4 mg tablet PO ONCE RF: 0 acetaminophen [Tylenol] 325 mg capsule 325 mg PO ONCE PRNRF: 0 ibuprofen 200 mg capsule 200 mg PO Q6H PRNRF: 0 topiramate [Topamax] 50 mg tablet 50 mg PO BID Qty: 30 RF: 5 Discharge Orders: Discharge Order (Routine); Ordered 02/27/20 Ordered By: Onur Caballero Referrals: Graham Nur MD [Primary Care Provider] - Discharge Diet: Regular Discharge Activity: Resume usual activity Patient Instructions: Gastroenteritis (ED) Activity Restrictions/Additional Instructions: Follow-up with medical provider as directed in 7-10 days. Take medications as prescribed. Return to the ER or your medical provider if condition worsens. Drink plenty of fluids and stay hydrated. You can also take ibuprofen or Tylenol for pain or fevers. Please read and understand discharge instructions. If any questions, please ask. Discharge Date/Time: 02/27/20 21:34 Coding Level of Care Code ED Ear Pull Machine Operator for Chg Fwd Exam Comprehensive
[2020-02-27 18:11] LABS: Basophils # 0.1 10^3/uL (0.0-0.1); Basophils % 0.6 %; Eosinophils # 0.2 10^3/uL (0.0-0.8); Eosinophils % 2.7 %; Hematocrit 36.4 % (37.0-47.0); Hemoglobin 12.1 g/dL (11.5-15.3); Lymphocytes # 1.7 10^3/uL (0.8-4.8); Lymphocytes % 21.2 %; Mean Corpuscular HGB Conc 33.2 g/dL (30.0-36.0); Mean Corpuscular Hemoglobin 30.3 pg (28.0-34.0); Mean Corpuscular Volume 91.2 fL (81-99); Mean Platelet Volume 9.9 fL (7.4-10.4); Monocytes # 0.5 10^3/uL (0.2-0.9); Monocytes % 6.8 %; Neutrophils # 5.31 10^3/uL (1.8-7.7); Neutrophils % 68.4 %; Nucleated Red Blood Cells % 0 %; Platelet Count 261 10^3/cmm (130-400); Red Blood Count 3.99 10^6/uL (4.1-5.3); Red Cell Distribution Width 11.4 % (12.1-15.1); White Blood Count 7.8 10^3/uL (4.0-10.0)
[2020-02-27 18:28] LABS: Alanine Aminotransferase 10 U/L (0-33); Albumin Level 4.2 g/dL (3.5-5.2); Alkaline Phosphatase 50 IU/L (35-105); Anion Gap 13.1 (5-19); Aspartate Amino Transferase 16 U/L (0-32); Blood Urea Nitrogen 9 mg/dL (6-20); Calcium 9.4 mg/dL (8.5-10.5); Carbon Dioxide 26 mmol/L (22-29); Chloride 104 mmol/L (98-107); Globulin 2.5 g/dL (1.3-4.6); Glomerular Filtration Rate 146.9 mL/min (90-130); Glucose 98 mg/dL (65-115); Lipase 19 U/L (13-60); Osmolality Calculated 284 mOsm/kg (285-295); Potassium 4.1 mmol/L (3.5-5.1); Sodium 139 mmol/L (136-145); Total Bilirubin 0.2 mg/dL (0.15-1.2); Total Protein 6.7 g/dL (6.6-8.7)
[2020-02-27 18:41] VITALS: RESP 18; O2SAT 96
[2020-02-27] MEDS: morphine 4 mg/mL SDV 1 mL IVP (18:41)
[2020-02-27] MEDS: sodium chloride 0.9% 1,000 ML 999 ML IV (18:43)
[2020-02-27] MEDS: ondansetron 2 mg/ML SDV 2 mL 4 MG IVP (18:43)
--- NOTE | 2020-02-27 19:05 | CTR_ITS ---
PROCEDURE INFORMATION: Exam: CT Abdomen And Pelvis With Contrast Exam date and time: 02/27/2020 7:15 PM Age: 30 years old Clinical indication: Abdominal pain and other: Pelvic; Acute; Prior surgery; Surgery date: 6+ months; Surgery type: Appy, gb, tubal TECHNIQUE: Imaging protocol: Computed tomography of the abdomen and pelvis with intravenous contrast. Radiation optimization: All CT scans at this facility use at least one of these dose optimization techniques: automated exposure control; mA and/or kV adjustment per patient size (includes targeted exams where dose is matched to clinical indication); or iterative reconstruction. Contrast material: OMNI 300; Contrast volume: 75 ml; Contrast route: INTRAVENOUS (IV); COMPARISON: CT abdomen pelvis w con* [id number] 08/19/2019 4:36 PM RADIATION DOSE METRICS: Total DLP (mGy-cm): 506.02 FINDINGS: Liver: Unremarkable. Gallbladder and bile ducts: Cholecystectomy. Mild prominence of the bile ducts is most likely reservoir effect. Pancreas: Normal. No ductal dilation. Spleen: Normal. No splenomegaly. Adrenals: Normal. No mass. Kidneys and ureters: Normal. No hydronephrosis. Stomach and bowel: There are a few loops of mildly dilated fluid-filled proximal small bowel measuring up to 2.9 cm. No small bowel obstruction. The stomach and colon are unremarkable. Appendix: The appendix is absent. Intraperitoneal space: Small amount of pelvic fluid is most likely physiologic. Vasculature: Unremarkable. No abdominal aortic aneurysm. Lymph nodes: Subcentimeter mesenteric lymph nodes are unchanged and most likely reactive. Bladder: Unremarkable as visualized. Reproductive: Prominent bilateral adnexal vessels. Physiologic enhancement of the right ovary. The uterus and left ovary are unremarkable. Bones/joints: Unremarkable. No acute fracture. Soft tissues: Unremarkable. CT/CT abdomen pelvis w con* [id number] IMPRESSION: 1. Mildly dilated fluid-filled loops of proximal small bowel could represent ileus or enteritis. 2. Stable mild mesenteric adenitis. 3. Stable fluid in the pelvis, most likely physiologic. Radiation Dose CTDIVOL = (mGy): DLP = 506.02 (mGy-cm)
[2020-02-27 19:06] VITALS: RESP 17; O2SAT 98
[2020-02-27] MEDS: morphine 4 mg/mL SDV 1 mL 2 MG IVP (19:06)
[2020-02-27 19:08] VITALS: RESP 17; O2SAT 97
[2020-02-27] MEDS: HYDROmorphone 1 mg/mL INJ 1 mL IVP (19:08)
[2020-02-27 19:34] LABS: Add Urine Microscopic? YES; Bilirubin Urine Neg (NEGATIVE); Blood Urine Neg (Negative); Glucose Urine UA Norm (Normal); HCG Qualitative Urine. Negative (Negative); Ketones Urine Negative (Negative); Leukocyte Esterase Urine 2+ (Negative); Nitrate Urine Negative (Negative); Protein Urine Neg (Negative); Urine Appearance Clear (CLEAR); Urine Color Straw (Yellow); Urobilinogen Urine Norm (Negative); pH Urine 5 (5-7)
[2020-02-27 19:39] LABS: Add Urine Culture? No; Bacteria Urine TRACE; RBC Urine 0-4 /hpf (0-2); Squamous Epithelial Cell Urine 0-4 (0-5)
[2020-02-27] MEDS: iohexol 300 mg/mL 100 mL Btl IV (19:52)
[2020-02-27 21:01] VITALS: RESP 18; O2SAT 96
[2020-02-27] MEDS: HYDROmorphone 1 mg/mL INJ 1 mL 0.4 MG IVP (21:01)
[2020-02-27 21:27] VITALS: BP 112/68; PULSE 78; RESP 18; O2SAT 98
== END 2020-02-27 21:34 | disposition home or self-care (01) ==
PROVIDERS: Emergency Medicine; Emergency Provider Physician Assistant; PCP Family Medicine
DX: A08.4 Viral intestinal infection, unspecified (principal); K59.00 Constipation, unspecified; F17.210 Nicotine dependence, cigarettes, uncomplicated
CPT/HCPCS: 12345; 36415; 74177; 80053; 81001; 81003; 81025; 83690; 85025; 96361; 96374; 96375; 96376; 99282; 99284; J1170; J2270; J2405; J7030; Q9967

== ENCOUNTER → 2022-10-26 11:37 | Outpatient (BNVA) | payer MEDICAID, SELFPAY | PROVIDERS: PCP Family Medicine; Visit Provider Nurse Practitioner Family | DX: M79.642 Pain in left hand (principal) | CPT/HCPCS: 73130 ==

== ENCOUNTER → 2022-11-10 11:42 | Outpatient (BNVA) | payer MEDICAID, SELFPAY | PROVIDERS: PCP Family Medicine; Visit Provider Internal Medicine | DX: G89.29 Other chronic pain (principal); R76.8 Other specified abnormal immunological findings in serum; R53.83 Other fatigue; L40.9 Psoriasis, unspecified | CPT/HCPCS: 72040; 72072; 72202; 80053; 82306; 82550; 83516; 85025; 85651; 86003; 86008; 86140; 86160; 86162; 86200; 86235; 86255; 86376; 86431; 86704; 86803; 87340; 87426 ==

== ENCOUNTER → 2022-12-06 17:14 | Outpatient (BNVA) | payer MEDICAID, SELFPAY | PROVIDERS: PCP Family Medicine; Visit Provider Nurse Practitioner Family | DX: R11.0 Nausea (principal); R39.9 Unspecified symptoms and signs involving the genitourinary system; G43.019 Migraine without aura, intractable, without status migrainosus | CPT/HCPCS: 81000; 81025 ==

== ENCOUNTER 2023-01-04 13:58 | Outpatient (CLI) | payer MEDICAID, SELFPAY ==
[2023-01-04 18:13] LABS: Creatine Phosphokinase 65 U/L (26-192)
== END 2023-01-04 13:59 | disposition home or self-care (01) ==
PROVIDERS: PCP Family Medicine; Visit Provider Internal Medicine
DX: G89.29 Other chronic pain (principal)
CPT/HCPCS: 36415; 82550

== ENCOUNTER → 2023-01-05 10:00 | Outpatient (BNVA) | payer MEDICAID, SELFPAY | PROVIDERS: PCP Family Medicine; Referring Provider Family Medicine; Visit Provider Obstetrics & Gynecology | DX: N92.6 Irregular menstruation, unspecified (principal); R76.8 Other specified abnormal immunological findings in serum; G89.29 Other chronic pain; R53.83 Other fatigue | CPT/HCPCS: 83036; 83525; 84443 ==

== ENCOUNTER 2023-01-20 08:13 | Outpatient (CLI) | payer MEDICAID, SELFPAY ==
[2023-01-26 05:49] LABS: Adrenocorticotropic Hormone 16 pg/mL (6-50)
== END 2023-01-20 08:14 | disposition home or self-care (01) ==
LOC: LAB 08:17
PROVIDERS: PCP Family Medicine; Visit Provider Internal Medicine
DX: R76.8 Other specified abnormal immunological findings in serum (principal); G89.29 Other chronic pain; R53.83 Other fatigue
CPT/HCPCS: 82024; 82533

== ENCOUNTER 2023-01-20 08:39 | Emergency (ER) | payer MEDICAID, SELFPAY ==
[2023-01-20 08:51] VITALS: BP 110/74; PULSE 73; TEMP 36.7; O2SAT 100; BMI 28.2
--- NOTE | 2023-01-20 09:01 | CT_ITS ---
WS: [id number] CT HEAD NONCONTRAST HISTORY: worst migraine ever, left arm numbness TECHNIQUE: Contiguous axial imaging performed through the brain in 2.5 mm imaging. Bone and soft tiss ue windows. Sagittal and coronal reformats reviewed. All CT scans at [facility] use at least one of these dose optimization techniques: automated exposure control; mA and/or kV adjustment per pa tient size (includes targeted exams where dose is matched to clinical indication); or iterative recon struction. DLP: 945.83 mGy.cm COMPARISON: 09/21/2019 No acute intracranial hemorrhage, midline shift or mass effect. No atrophy or prior infarcts or herniation. Ventricles: Normal size with no hydrocephalus. Stable calcification along the RIGHT tentorium. Paranasal sinuses: As visualized are clear. Mastoid air cells: Well pneumatized. Calvarium and scalp: Skull is intact with no soft tissue edema or swelling. CT/CT head wo con* [id number] IMPRESSION: Negative head CT.
--- NOTE | 2023-01-20 09:03 | W.ED.HA ---
HPI - Headache General: Chief Complaint: Headache Stated Complaint: n/v, headache, left arm numbness Time Seen by Provider: 01/20/23 08:46 History of Present Illness: Patient is a 33-year-old female who comes to the ED with headache. Patient states she has a history of migraines. Headache started approximately 4 days ago. She states that her headache is different than past migraines and says this headache is a lot worse. She says it is a constant throbbing headache in the back of her head that is rated a 10 out of 10. Approximately 2 days ago she started developing some left arm numbness/tingling sensation. She also endorses having nausea and vomiting and was unable to keep any food or fluids down yesterday. Endorses photophobia. She states that she has been having episodes of dizziness over the past 4 days that she describes as feeling off balance and denies any room spinning. Endorses episodes of blurry vision as well. Associated symptoms: Reports nausea and vomiting; Deny chest pain, fever(s) or rash Review of Systems Const: Denies: fever(s), chills or fatigue Eyes: Reports: blurry vision (Episodic) and photophobia; Denies: change in vision or eye discomfort ENMT: Denies: throat pain, odynophagia, nasal discharge or nasal congestion Card: Denies: chest pain, palpitations, edema, swelling of feet/ankles, dyspnea on exertion or orthopnea Resp: Denies: dyspnea, productive cough or non-productive cough GI: Reports: nausea and vomiting; Denies: abdominal pain, diarrhea, constipation or hematochezia : Denies: flank pain, dysuria or hematuria Musc: Denies: neck pain, back pain or extremity swelling Skin/Breast: Denies: rash or new lesions Neuro: Reports: headache(s) and numbness in extremities (Left arm); Denies: weakness in extremities PFSH ED PFSH: Medical History (Updated 01/20/23 @ 10:22 by PASCUAL Lombardo) Anxiety Bipolar disorder Depression Endometriosis Fatigue No pertinent past medical history neghx: htn,dm,thyroid,dvt/pe PCP: Dr. Sawyer Deal Surgical History History of cholecystectomy History of reversal of tubal ligation History of tonsillectomy and adenoidectomy History of tubal ligation Hx of appendectomy Family History Grandfather Cancer skin cancer Hyperlipidemia maternal Hypertension maternal Heart disease maternal Mother Diabetes Hyperlipidemia Stroke Heart disease Father Stroke Heart disease Other CAD (coronary artery disease) Clotting disorder Dementia Lung disease Psychiatric illness Denies family history of Colon cancer Ovarian cancer Chronic kidney disease (CKD) Breast cancer Anesthesia complication Bleeding disorder Uterine cancer Thyroid condition Physical Exam Const: COMMON NORMALS: patient oriented x3 HENMT: COMMON NORMALS: normocephalic HEAD & SCALP: normocephalic MOUTH: Normal oral and palatal mucosa present THROAT: posterior oropharynx normal and uvula midline Eye: COMMON NORMALS: Equal, round and reactive pupils present and EOMs intact bilaterally GENERAL EYE: appearance normal, both eyes and all related structures PUPIL: Yes Equal, round and reactive pupils present Neck/C-Spine: COMMON NORMALS: supple GENERAL: Yes normal visual inspection Lymph: LYMPHATIC: no lymphadenopathy noted Resp: COMMON NORMALS: normal respiratory effort, No retractions, No use of accessory muscles and clear to auscultation bilaterally AUSCULTATION: clear to auscultation bilaterally Cardio: COMMON NORMALS: regular rate, regular rhythm, S1 normal heart sound present, S2 normal heart sound present, No gallops present (Cardio), No clicks present (Cardio), No murmurs present (Cardio) and Peripheral pulses 2+ throughout RATE: regular rate RHYTHM: regular rhythm HEART SOUNDS: S1 normal heart sound present and S2 normal heart sound present PERIPHERAL PULSES: Peripheral pulses 2+ throughout GI: COMMON NORMALS: Normal to inspection, nondistended, normoactive bowel sounds present, Soft to palpation, non-tender and no masses PALPATION: Yes Soft to palpation : COMMON NORMALS: Yes no CVA tenderness BLADDER/KIDNEY EXAM: Yes no CVA tenderness Back/Pelvis: COMMON NORMALS: no CVA tenderness Extremity: GENERAL: Yes normal exam except as noted Neuro: COMMON NORMALS: patient oriented x3, CN's II-XII intact bilaterally, moves all extremities, no focal motor deficits and no sensory deficits noted SENSORY EXAM: Yes extremities (intact) MOTOR EXAM: 5/5 motor strength present throughout Skin: COMMON NORMALS: no rashes or lesions noted GENERAL SKIN EXAM: no rashes or lesions noted and dry skin Course Vital Signs: Vital signs: Vital Signs Temperature 98.1 F 06/01/23 08:51 Pulse Rate 82 01/20/23 10:29 Blood Pressure 96/62 01/20/23 10:29 Pulse Oximetry 99 01/20/23 10:29 Oxygen Delivery Me thod Room Air 01/20/23 09:26 MDM - Headache Medical Decision Making Patient is a 33-year-old female who comes to the ED with headache. Patient states she has a history of migraines. Headache started approximately 4 days ago. She states that her headache is different than past migraines and says this headache is a lot worse. She says it is a constant throbbing headache in the back of her head that is rated a 10 out of 10. Approximately 2 days ago she started developing some left arm numbness/tingling sensation. She also endorses having nausea and vomiting and was unable to keep any food or fluids down yesterday. Endorses photophobia. She states that she has been having episodes of dizziness over the past 4 days that she describes as feeling off balance and denies any room spinning. Endorses episodes of blurry vision as well. Vitals are stable. Neuro exam shows no deficits. Labs are all unremarkable. Head CT shows no acute findings. Patient was given migraine IV cocktail and her headache went from a 10 out of 10 down to a 5 out of 5. She was stable for discharge home and diagnosed with migraine headache. Told to follow-up with her PCP in the next week for reevaluation. Return to ED precautions given. Patient understood and agreed with plan. Lab Data I reviewed the patient's lab results. 01/20/23 09:30 01/20/23 09:[address] 01/20/23 09:01 IMPRESSION: Negative head CT. Laboratory Results WBC 5.0 10^3/uL (4.0-10.0) 01/20/23 09:30 RBC 4.41 10^6/uL (4.1-5.3) 01/20/23 09:30 Hgb 13.0 g/dL (11.5-15.3) 01/20/23 09:30 Hct 39.9 % (37.0-47.0) 01/20/23 09:30 MCV 90.5 fl (81-99) 01/20/23 09:30 MCH 29.5 pg (28.0-34.0) 01/20/23 09:30 MCHC 32.6 g/dL (30.0-36.0) 01/20/23 09:30 RDW 11.8 % (12.1-15.1) L 01/20/23 09:30 Plt Count 246 10^3/cmm (130-400) 01/20/23 09:30 MPV 9.7 fL (7.4-10.4) 01/20/23 09:30 Neut % (Auto) 62.3 % 01/20/23 09:30 Lymph % (Auto) 27.9 % 01/20/23 09:30 [place] % (Auto) 5.4 % 01/20/23 09:30 Eos % (Auto) 3.2 % 01/20/23 09:30 Baso % (Auto) 0.8 % 01/20/23 09:30 Neut # (Auto) 3.13 10^3/uL (1.8-7.7) 01/20/23 09:30 Lymph # (Auto) 1.4 10^3/uL (0.8-4.8) 01/20/23 09:30 [place] # (Auto) 0.3 10^3/uL (0.2-0.9) 01/20/23 09:30 Eos # (Auto) 0.2 10^3/uL (0.0-0.8) 01/20/23 09:30 Baso # (Auto) 0.0 10^3/uL (0.0-0.1) 01/20/23 09:30 Nucleated RBC % (auto) 0 % 01/20/23 09:30 Nucleated RBCs # 0.0 /100WBC 01/20/23 09:30 Sodium 141 mmol/L (136-145) 01/20/23 09:30 Potassium 3.9 mmol/L (3.5-5.1) 01/20/23 09:30 Chloride 104 mmol/L (98-107) 01/20/23 09:30 Carbon Dioxide 26 mmol/L (22-29) 01/20/23 09:30 Anion Gap 14.9 (5-19) 01/20/23 09:30 BUN 12 mg/dL (6-20) 01/20/23 09:30 Creatinine 0.6 mg/dL (0.5-0.9) 01/20/23 09:30 GFR Calculation 116.6 mL/min (90-130) 01/20/23 09:30 Glucose 90 mg/dL (65-115) 01/20/23 09:30 Calculated Osmolality 291 mOsm/kg (285-295) 01/20/23 09:30 Calcium 8.8 mg/dL (8.5-10.5) 01/20/23 09:30 Total Bilirubin 0.2 mg/dL (0.15-1.2) 01/20/23 09:30 AST 22 U/L (0-32) 01/20/23 09:30 ALT 28 U/L (0-33) 01/20/23 09:30 Alkaline Phosphatase 97 U/L (35-105) 01/20/23 09:30 Total Protein 7.1 g/dL (6.6-8.7) 01/20/23 09:30 Albumin 4.3 g/dL (3.5-5.2) 01/20/23 09:30 Globulin 2.8 g/dL (1.3-4.6) 01/20/23 09:30 HCG, Qual Negative (Negative) 01/20/23 09:30 Discharge Plan Discharge Patient Disposition: Home Clinical Impression: Migraine Qualifiers: Migraine type: without aura Status migrainosus presence: without status migrainosus Intractability: not intractable Qualified Code(s): G43.009 - Migraine without aura, not intractable, without status migrainosus Condition: Stable Prescriptions: No Action albuterol sulfate 90 mcg/actuation HFA aerosol inhaler 1 inh inhalation QID PRN (Reason: shortness of breath or wheezing) Qty: 8.5 1RF Gummies 400 mcg-35 mg- 25 mg-5 mg tablet,chewable 2 tab PO QAM Tylenol Ex Str Rapid Release 500 mg Tablet 1,000 mg PO Q6H PRN (Reason: Pain) metformin 500 mg tablet extended release 24 hr 500 mg PO QAM cholecalciferol (vitamin D3) 1,250 mcg (50,000 unit) capsule 50,000 unit PO Q7D Rx Instructions: on mondays Discharge Orders: Discharge ED (Routine); Ordered 01/20/23 Ordered By: Onur Caballero Referrals: Sawyer Deal MD [Primary Care Provider] - Discharge Diet: Regular Discharge Activity: Increase activity as tolerated Patient Instructions: Headache - Migraine (Adult) Activity Restrictions/Additional Instructions: Follow-up with medical provider as directed in the next 5 to 7 days for reevaluation. Continue taking all home medications as previously prescribed. Return to the ER or your medical provider if condition worsens. Please read and understand discharge instructions. Thank you for choosing [facility] for your healthcare needs today. Please realize this is an emergency room and that we are providing you with a medical screening exam and this may not be complete and all inclusive of all the testing and or work up that you may need to determine your ailment or severity of your illness. It is very important that you follow up as instructed or that you return to the Emergency Department should you have concerns or if your condition changes or worsens in any way. Stand Alone Forms: Work/School Release Coding Level of Care Code ED Can Technician for Janiya Summers
[2023-01-20] MEDS: sodium chloride 0.9% 1,000 ML 999 ML IV (09:24)
[2023-01-20] MEDS: dexamethasone 10 mg/mL INJ IVP (09:25)
[2023-01-20] MEDS: ketorolac 30 mg/mL INJ IVP (09:25)
[2023-01-20 09:26] VITALS: BP 112/61; PULSE 84; O2SAT 100
[2023-01-20] MEDS: metoclopramide 5 mg/mL SDV 2 mL 10 MG IVP (09:26)
[2023-01-20] MEDS: diphenhydrAMINE 50 mg/mL SDV 1mL 25 MG IVP (09:29)
[2023-01-20 09:44] LABS: Basophils % 0.8 %; Eosinophils # 0.2 10^3/uL (0.0-0.8); Eosinophils % 3.2 %; Hematocrit 39.9 % (37.0-47.0); Lymphocytes # 1.4 10^3/uL (0.8-4.8); Lymphocytes % 27.9 %; Mean Corpuscular HGB Conc 32.6 g/dL (30.0-36.0); Mean Corpuscular Hemoglobin 29.5 pg (28.0-34.0); Mean Corpuscular Volume 90.5 fl (81-99); Mean Platelet Volume 9.7 fL (7.4-10.4); Monocytes # 0.3 10^3/uL (0.2-0.9); Monocytes % 5.4 %; Neutrophils # 3.13 10^3/uL (1.8-7.7); Neutrophils % 62.3 %; Nucleated Red Blood Cells % 0 %; Platelet Count 246 10^3/cmm (130-400); Red Blood Count 4.41 10^6/uL (4.1-5.3); Red Cell Distribution Width 11.8 % (12.1-15.1)
[2023-01-20 10:03] LABS: HCG, Serum Qual Negative (Negative)
[2023-01-20 10:05] LABS: Alanine Aminotransferase 28 U/L (0-33); Albumin Level 4.3 g/dL (3.5-5.2); Alkaline Phosphatase 97 U/L (35-105); Anion Gap 14.9 (5-19); Aspartate Amino Transferase 22 U/L (0-32); Blood Urea Nitrogen 12 mg/dL (6-20); Calcium 8.8 mg/dL (8.5-10.5); Carbon Dioxide 26 mmol/L (22-29); Chloride 104 mmol/L (98-107); Globulin 2.8 g/dL (1.3-4.6); Glomerular Filtration Rate 116.6 mL/min (90-130); Glucose 90 mg/dL (65-115); Osmolality Calculated 291 mOsm/kg (285-295); Potassium 3.9 mmol/L (3.5-5.1); Sodium 141 mmol/L (136-145); Total Bilirubin 0.2 mg/dL (0.15-1.2); Total Protein 7.1 g/dL (6.6-8.7)
[2023-01-20 10:29] VITALS: BP 96/62; PULSE 82; O2SAT 99
== END 2023-01-20 10:31 | disposition home or self-care (01) ==
PROVIDERS: Emergency Provider Physician Assistant; PCP Family Medicine
DX: G43.009 Migraine without aura, not intractable, without status migrainosus (principal); Z79.84 Long term (current) use of oral hypoglycemic drugs
CPT/HCPCS: 70450; 80053; 84703; 85025; 96361; 96374; 96375; 99285; J1100; J1200; J1885; J2765; J7030

== ENCOUNTER 2023-01-24 07:54 | Outpatient (CLI) | payer MEDICAID, SELFPAY ==
--- NOTE | 2023-01-24 08:30 | FL_ITS ---
WS: [id number] HYSTEROGRAM PERFORMED UNDER FLUOROSCOPY HISTORY: N80.9 - Endometriosis, unspecified. FLUOROSCOPY TIME: 1min [id number] minutes. # of spot films: 6. Cannulization of the cervix performed by Dr. Hough. Good contrast distention of the uterine cavity . No filling defects. There is filling of both fallopian tubes. Normal caliber of the RIGHT fallopian tube with immediate spillage into the peritoneal cavity. The LEFT fallopian tube is dilated and does not spill into the peritoneal cavity. At the very distal end of the fallopian tube there is increased soft tissue density which persists and may be responsibl e for the fallopian tube obstruction. FL/FL hysterosalpingography [id number] IMPRESSION: 1. Mild LEFT hydrosalpinx with blockage of the fallopian tube. No spillage int o the peritoneal cavity. 2. Normal size and patency of the RIGHT fallopian tube.
--- NOTE | 2023-01-24 10:20 | PM.OP ---
Operative Report Date of procedure: January 24, 2023 Pre-op diagnosis: previous tubal re-anastomosis Post-op diagnosis: same Post-op findings: patent right tube and occluded left tube Procedure done: Hysterosalpingogram Specimens removed/disposition: none Pathology: none Surgeon: Lauren Hough Procedure: The patient was placed in the dorsal lithotomy position. The speculum was placed into the vagina and the cervix visualized. It was cleansed with betadine. A single tooth tenaculum was placed onto the anterior lip of the cervix. The uterus was sounded to 7 cm. The canula was placed through the cervix and into the uterus. 50 ml of contrast was injected into the uterus. Fluoroscopy was used to take images. All of the instruments were removed. A final picture was taken. The patient tolerated the procedure well. Counts were correct. She was dismissed home in stable condition.
== END 2023-01-24 07:55 | disposition home or self-care (01) ==
LOC: RAD 07:57
PROVIDERS: PCP Family Medicine; Visit Provider Obstetrics & Gynecology
DX: N80.9 Endometriosis, unspecified (principal); N70.11 Chronic salpingitis
CPT/HCPCS: 74740

== ENCOUNTER → 2023-02-14 12:09 | Outpatient (BNVA) | payer MEDICAID, SELFPAY | PROVIDERS: PCP Family Medicine; Visit Provider Obstetrics & Gynecology | DX: N92.6 Irregular menstruation, unspecified (principal) | CPT/HCPCS: 81025; 84702 ==

== ENCOUNTER 2023-02-16 08:35 | Outpatient (CLI) | payer MEDICAID, SELFPAY ==
[2023-02-16 09:29] LABS: 25 Hydroxy Vitamin D 73 ng/mL (30-100)
== END 2023-02-16 08:36 | disposition home or self-care (01) ==
LOC: LAB 08:37
PROVIDERS: Obstetrics & Gynecology; PCP Family Medicine; Visit Provider Family Medicine
DX: E55.9 Vitamin D deficiency, unspecified (principal); N92.6 Irregular menstruation, unspecified
CPT/HCPCS: 36415; 82306; 84702

== ENCOUNTER 2023-02-16 11:48 | Emergency (ER) | payer MEDICAID, SELFPAY ==
[2023-02-16 11:51] VITALS: BP 116/75; PULSE 95; RESP 18; TEMP 36.7; O2SAT 98
--- NOTE | 2023-02-16 11:51 | US_ITS ---
WS: [id number] Exam: US OB <=14 wk fetus w transvag Date/Time of Exam: 02/16/2023 12:10 PM Reason For Exam: threatened miscarriage Transvaginal pelvic ultrasound was performed. There was no sign of the viable intrauterine . Both ovaries demonstrate normal perfusion wh en evaluated with color-flow Doppler. The right ovary measures 4 x 3.5 x 2.4 cm. The left ovary measu res 3.1 x 2.33 x 2.24 cm. No adnexal mass or abnormal significant free fluid collection in the pelvis . There are follicle cysts in both ovaries. The largest within the right ovary measuring 2.29 cm at g reatest diameter. Endometrial thickness was 1.7 cm. Recommendations: Follow-up ultrasound evaluation in approximately 7-10 days. US/US OB <=14 wk fetus w transvag IMPRESSION: 1. No viable intrauterine identified at this time. 2. No adnexal mass or abnormal free fluid collection. 3. Follicle cysts in both ovaries. The largest cysts were in the right ovary.
[2023-02-16 12:14] VITALS: BP 118/75; PULSE 93; RESP 16; O2SAT 100
--- NOTE | 2023-02-16 12:24 | W.ED.GENADLT ---
HPI - General Adult General: Chief complaint: Vaginal Bleeding Stated complaint: 5 to 10 wk , vag bleeding, cramping Time Seen by Provider: 02/16/23 11:52 Source: patient Mode of arrival: ambulatory Limitations: no limitations History of Present Illness: 33-year-old female states she believes she is roughly 5 weeks . States she had some spotting today that since stopped she had some mild cramping pain denies any pain currently states she is mainly concerned as she had a tubal ligation the past had it reversed she had 1 kids since then she had the reversal 2 years ago but is very concerned about ectopic she denies any vomiting or diarrhea. Associated symptoms: Deny chest pain, dyspnea, headache(s), nausea, rash or vomiting Review of Systems Const: Denies: fever(s), chills, body aches or change in appetite Eyes: Denies: blurry vision or eye discomfort ENMT: Denies: throat pain or dental pain Card: Denies: chest pain Resp: Denies: dyspnea GI: Denies: abdominal pain, nausea or vomiting : Reports: vaginal bleeding; Denies: dysuria Musc: Denies: neck pain or back pain Skin/Breast: Denies: rash Neuro: Denies: headache(s) PFSH ED PFSH: Medical History Anxiety Bipolar disorder Depression Endometriosis Fatigue No pertinent past medical history neghx: htn,dm,thyroid,dvt/pe PCP: Dr. Sawyer Deal Surgical History History of cholecystectomy History of reversal of tubal ligation History of tonsillectomy and adenoidectomy History of tubal ligation Hx of appendectomy Family History Grandfather Cancer skin cancer Hyperlipidemia maternal Hypertension maternal Heart disease maternal Mother Diabetes Hyperlipidemia Stroke Heart disease Father Stroke Heart disease Other CAD (coronary artery disease) Clotting disorder Dementia Lung disease Psychiatric illness Denies family history of Colon cancer Ovarian cancer Chronic kidney disease (CKD) Breast cancer Anesthesia complication Bleeding disorder Uterine cancer Thyroid condition Physical Exam Const: COMMON NORMALS: no acute distress, patient oriented x3 and healthy appearing HENMT: COMMON NORMALS: normocephalic and atraumatic HEAD & SCALP: normocephalic and atraumatic Eye: COMMON NORMALS: conjunctivae normal CONJUNCTIVA: Yes conjunctivae normal Neck/C-Spine: COMMON NORMALS: full ROM and supple Chest: COMMONS NORMALS: normal inspection of the chest Resp: COMMON NORMALS: normal respiratory effort Cardio: COMMON NORMALS: regular rate, regular rhythm and No murmurs present (Cardio) RATE: regular rate RHYTHM: regular rhythm GI: COMMON NORMALS: Normal to inspection, nondistended, normoactive bowel sounds present, Soft to palpation, non-tender and no masses PALPATION: Yes Soft to palpation Extremity: COMMON NORMALS: normal to inspection and full ROM Neuro: COMMON NORMALS: patient oriented x3, moves all extremities and no focal motor deficits Psych: COMMON NORMALS: mental status grossly normal, Normal thought process present and cooperative THOUGHT PROCESS: Normal thought process present Skin: COMMON NORMALS: no rashes or lesions noted and no wounds GENERAL SKIN EXAM: no rashes or lesions noted Course Vital Signs: Vital signs: Vital Signs Temperature 98.0 F 02/16/23 11:51 Pulse Rate 93 02/16/23 12:14 Respiratory Rate 16 02/16/23 12:14 Blood Pressure 118/75 02/16/23 12:14 Pulse Oximetry 100 02/16/23 12:14 Oxygen Delivery Me thod Room Air 02/16/23 11:51 MDM - General Adult Medical Decision Making Patient presents here with threatened miscarriage quantitative that was drawn this morning was 380 ultrasound showed no definite IUP did not show an ectopic she no longer has any bleeding she had no pain blood pressure is normal no signs of ruptured ectopic I did speak to Dr. Hough who knows patient states that she will follow-up in a week and likely get a repeat ultrasound did inform patient if she has bleeding or pain she is return she understands agrees to plan. Lab Data Laboratory Results Blood Type A Positive 02/16/23 12:07 Rho(D) Type Positive 02/16/23 12:07 Discharge Plan Discharge Patient Disposition: Home Clinical Impression: Threatened miscarriage Condition: Stable Prescriptions: No Action albuterol sulfate 90 mcg/actuation HFA aerosol inhaler 1 inh inhalation QID PRN (Reason: shortness of breath or wheezing) Qty: 8.5 1RF Gummies 400 mcg-35 mg- 25 mg-5 mg tablet,chewable 2 tab PO QAM Tylenol Ex Str Rapid Release 500 mg Tablet 1,000 mg PO Q6H PRN (Reason: Pain) metformin 500 mg tablet extended release 24 hr 500 mg PO QAM cholecalciferol (vitamin D3) 1,250 mcg (50,000 unit) capsule 50,000 unit PO Q7D Rx Instructions: on mondays Discharge Orders: Discharge ED (Routine); Ordered 02/16/23 Ordered By: Messi Root Referrals: Lauren Hough MD [Physician] - 1-3 days Sawyer Deal MD [Primary Care Provider] - Discharge Diet: Advance as tolerated Discharge Activity: Resume usual activity Patient Instructions: Threatened Miscarriage (ED) Coding Level of Care Code ED Drawing Kiln Operator for Janiya Summers
[2023-02-16 13:07] LABS: Add Urine Microscopic? NO; Charge for UA Resulting for Rev
[2023-02-16 13:15] LABS: Bilirubin Urine Neg (Negative); Blood Urine Neg (Negative); Glucose Urine UA Norm (Normal); Ketones Urine Negative (Negative); Leukocyte Esterase Urine Negative (Negative); Nitrate Urine Negative (Negative); Protein Urine Neg (Negative); Specific Gravity, Urine 1.015 (1.005-1.030); Urine Appearance Clear (CLEAR); Urine Color Colorless (Yellow); Urobilinogen Urine Norm (Negative); pH Urine 5 (5-7)
== END 2023-02-16 12:57 | disposition home or self-care (01) ==
PROVIDERS: Emergency Provider Emergency Medicine; PCP Family Medicine
DX: O20.0 Threatened abortion (principal); Z3A.01 Less than 8 weeks gestation of pregnancy; Z79.84 Long term (current) use of oral hypoglycemic drugs
CPT/HCPCS: 36415; 76801; 76817; 81003; 86850; 86900; 99284

== ENCOUNTER 2023-02-21 08:56 | Outpatient (CLI) | payer MEDICAID, SELFPAY | END 2023-02-21 08:57 | disposition home or self-care (01) | LOC: LAB 08:58 | PROVIDERS: PCP Family Medicine; Visit Provider Obstetrics & Gynecology | DX: N92.6 Irregular menstruation, unspecified (principal) | CPT/HCPCS: 36415; 84702 ==

== ENCOUNTER 2023-02-24 13:41 | Emergency (ER) | payer MEDICAID, SELFPAY ==
--- NOTE | 2023-02-24 13:43 | US_ITS ---
WS: [id number] ULTRASOUND EARLY TECHNIQUE: Transabdominal sonography of the pelvis was performed. Followed by transvaginal sonography to better evaluate the uterus and ovaries. CLINICAL INFORMATION: threatened miscarriage LMP: 12/16/2022 Beta hCG: Unknown. COMPARISON: February 16, 2023 FINDINGS: UTERUS AND GESTATIONAL SAC Intrauterine gestations: Possible early intrauterine gestational sac measuring 7.4 mm. This would be compatible with 5 weeks 4 day gestation. pole and cardiac activity not visualized in this suspected very early . Suspected gestational sac positioned somewhat high in the uterine fundus.Recommend short interval f ollow-up to assess viability. OVARIES: Right ovary: RIGHT ovarian cysts Left ovary: Normal. FREE FLUID None. US/US OB lmt with transvaginal IMPRESSION: 1. Possible early intrauterine gestational sac measuring 7.4 mm. pole an d cardiac activity not yet visualized in this suspected very early 2. Recommend short interval follow-up to assess viability. 3. RIGHT ovarian cysts similar to previous
[2023-02-24 13:48] VITALS: BP 117/71; PULSE 91; RESP 16; O2SAT 97
[2023-02-24 15:12] LABS: Basophils # 0.1 10^3/uL (0.0-0.1); Basophils % 0.6 %; Eosinophils # 0.1 10^3/uL (0.0-0.8); Eosinophils % 1.3 %; Hematocrit 38.2 % (37.0-47.0); Hemoglobin 12.5 g/dL (11.5-15.3); Lymphocytes # 2.1 10^3/uL (0.8-4.8); Lymphocytes % 23.9 %; Mean Corpuscular HGB Conc 32.7 g/dL (30.0-36.0); Mean Corpuscular Hemoglobin 29.8 pg (28.0-34.0); Mean Corpuscular Volume 91.2 fl (81-99); Mean Platelet Volume 9.4 fL (7.4-10.4); Monocytes # 0.5 10^3/uL (0.2-0.9); Monocytes % 5.5 %; Neutrophils # 5.95 10^3/uL (1.8-7.7); Neutrophils % 68.5 %; Nucleated Red Blood Cells % 0 %; Platelet Count 246 10^3/cmm (130-400); Red Blood Count 4.19 10^6/uL (4.1-5.3); White Blood Count 8.7 10^3/uL (4.0-10.0)
--- NOTE | 2023-02-24 16:19 | W.ED.ABDPA2 ---
HPI - Abdominal Pain General: Chief Complaint: Abdominal Pain Stated Complaint: 5 weeks , abd and back pain Time Seen by Provider: 02/24/23 15:52 Source: patient Mode of arrival: ambulatory Limitations: no limitations History of Present Illness: 33-year-old female who is currently 6 weeks states she has had some lower abdominal cramping along with vomiting she denies any vaginal bleeding. She had a tubal ligation reversal she is concerned about possibility of ectopic she did have an ultrasound little over a week ago but she is too early to see anything. States her pain is currently a 2 out of 10 denies any worsening improving factors. Associated Symptoms: Reports nausea and vomiting; Denies chills, diarrhea, dysuria and fever(s) Review of Systems Const: Denies: fever(s) or chills Eyes: Denies: eye discomfort ENMT: Denies: throat pain or dental pain Card: Denies: chest pain Resp: Denies: dyspnea GI: Reports: nausea and vomiting; Denies: abdominal pain or diarrhea : Denies: dysuria Musc: Denies: neck pain or back pain Skin/Breast: Denies: rash Neuro: Denies: headache(s) Psych: Denies: depression PFSH ED PFSH: Medical History Anxiety Bipolar disorder Depression Endometriosis Fatigue No pertinent past medical history neghx: htn,dm,thyroid,dvt/pe PCP: Dr. Sawyer Deal Surgical History History of cholecystectomy History of reversal of tubal ligation History of tonsillectomy and adenoidectomy History of tubal ligation Hx of appendectomy Family History Grandfather Cancer skin cancer Hyperlipidemia maternal Hypertension maternal Heart disease maternal Mother Diabetes Hyperlipidemia Stroke Heart disease Father Stroke Heart disease Other CAD (coronary artery disease) Clotting disorder Dementia Lung disease Psychiatric illness Denies family history of Colon cancer Ovarian cancer Chronic kidney disease (CKD) Breast cancer Anesthesia complication Bleeding disorder Uterine cancer Thyroid condition Physical Exam Const: COMMON NORMALS: no acute distress, patient oriented x3 and healthy appearing HENMT: COMMON NORMALS: normocephalic and atraumatic HEAD & SCALP: normocephalic and atraumatic Eye: COMMON NORMALS: Equal, round and reactive pupils present and EOMs intact bilaterally PUPIL: Yes Equal, round and reactive pupils present Neck/C-Spine: COMMON NORMALS: full ROM and supple Chest: COMMONS NORMALS: normal inspection of the chest and normal palpation of entire chest wall Resp: COMMON NORMALS: normal respiratory effort, No retractions, No use of accessory muscles and clear to auscultation bilaterally AUSCULTATION: clear to auscultation bilaterally Cardio: COMMON NORMALS: regular rate, regular rhythm and No murmurs present (Cardio) RATE: regular rate RHYTHM: regular rhythm GI: COMMON NORMALS: Normal to inspection, nondistended, normoactive bowel sounds present, Soft to palpation, non-tender and no masses PALPATION: Yes Soft to palpation Extremity: COMMON NORMALS: normal to inspection and full ROM Neuro: COMMON NORMALS: patient oriented x3, moves all extremities and no focal motor deficits Psych: COMMON NORMALS: mental status grossly normal, Normal thought process present and cooperative THOUGHT PROCESS: Normal thought process present Skin: COMMON NORMALS: no rashes or lesions noted and no wounds GENERAL SKIN EXAM: no rashes or lesions noted Course Vital Signs: Vital signs: Vital Signs Pulse Rate 91 02/24/23 13:48 Respiratory Rate 16 02/24/23 13:48 Blood Pressure 117/71 02/24/23 13:48 Pulse Oximetry 97 02/24/23 13:48 Oxygen Delivery Me thod Room Air 02/24/23 13:48 MDM - Abdominal Pain Medical Decision Making Patient presents with abdominal pain in she is well-appearing here exam here is benign ultrasound shows no signs of ectopic she has had no bleeding she is stable for discharge she is to follow-up with her OB and return if worsening. She has no signs appendicitis. Medical Records I reviewed the patient's medical records. Lab Data I reviewed the patient's lab results. 02/24/23 15:01 Labs/Radiology: Radiology Impressions Obstetrics Ultrasound 02/24/23 13:43 IMPRESSION: 1. Possible early intrauterine gestational sac measuring 7.4 mm. pole and cardiac activity not yet visualized in this suspected very early 2. Recommend short interval follow-up to assess viability. 3. RIGHT ovarian cysts similar to previous Laboratory Results WBC 8.7 10^3/uL (4.0-10.0) 02/24/23 15:01 RBC 4.19 10^6/uL (4.1-5.3) 02/24/23 15:01 Hgb 12.5 g/dL (11.5-15.3) 02/24/23 15:01 Hct 38.2 % (37.0-47.0) 02/24/23 15:01 MCV 91.2 fl (81-99) 02/24/23 15:01 MCH 29.8 pg (28.0-34.0) 02/24/23 15:01 MCHC 32.7 g/dL (30.0-36.0) 02/24/23 15:01 RDW 12.0 % (12.1-15.1) L 02/24/23 15:01 Plt Count 246 10^3/cmm (130-400) 02/24/23 15:01 MPV 9.4 fL (7.4-10.4) 02/24/23 15:01 Neut % (Auto) 68.5 % 02/24/23 15:01 Lymph % (Auto) 23.9 % 02/24/23 15:01 [place] % (Auto) 5.5 % 02/24/23 15:01 Eos % (Auto) 1.3 % 02/24/23 15:01 Baso % (Auto) 0.6 % 02/24/23 15:01 Neut # (Auto) 5.95 10^3/uL (1.8-7.7) 02/24/23 15:01 Lymph # (Auto) 2.1 10^3/uL (0.8-4.8) 02/24/23 15:01 [place] # (Auto) 0.5 10^3/uL (0.2-0.9) 02/24/23 15:01 Eos # (Auto) 0.1 10^3/uL (0.0-0.8) 02/24/23 15:01 Baso # (Auto) 0.1 10^3/uL (0.0-0.1) 02/24/23 15:01 Nucleated RBC % (auto) 0 % 02/24/23 15:01 Nucleated RBCs # 0.0 /100WBC 02/24/23 15:01 Ser , Semi-Qnt 8481.00 mIU/mL 02/24/23 15:01 Urine Color Yellow (Yellow) 02/24/23 15:56 Urine Appearance Clear (CLEAR) 02/24/23 15:56 Urine pH 5 (5-7) 02/24/23 15:56 Ur Specific [place] 1.010 (1.005-1.030) 02/24/23 15:56 Urine Protein Neg (Negative) 02/24/23 15:56 Urine Glucose (UA) Norm (Normal) 02/24/23 15:56 Urine Ketones Negative (Negative) 02/24/23 15:56 Urine Blood Neg (Negative) 02/24/23 15:56 Urine Nitrate Negative (Negative) 02/24/23 15:56 Urine Bilirubin Neg (Negative) 02/24/23 15:56 Urine Urobilinogen Norm mg/dL (Negative) 02/24/23 15:56 Ur Leukocyte Esterase Negative (Negative) 02/24/23 15:56 Discharge Plan Discharge Patient Disposition: Home Clinical Impression: Abdominal pain affecting Condition: Stable Prescriptions: New Reglan 10 mg tablet 10 mg PO Q6H PRN (Reason: nausea and vomiting) Qty: 20 0RF No Action albuterol sulfate 90 mcg/actuation HFA aerosol inhaler 1 inh inhalation QID PRN (Reason: shortness of breath or wheezing) Qty: 8.5 1RF Gummies 400 mcg-35 mg- 25 mg-5 mg tablet,chewable 2 tab PO QAM Tylenol Ex Str Rapid Release 500 mg Tablet 1,000 mg PO Q6H PRN (Reason: Pain) metformin 500 mg tablet extended release 24 hr 500 mg PO QAM cholecalciferol (vitamin D3) 1,250 mcg (50,000 unit) capsule 50,000 unit PO Q7D Rx Instructions: on mondays Discharge Orders: Discharge ED (Routine); Ordered 02/24/23 Ordered By: Messi Root Referrals: Sawyer Deal MD [Primary Care Provider] - Discharge Diet: Advance as tolerated Discharge Activity: Resume usual activity Patient Instructions: Abdominal Pain in (ED) Coding Level of Care Code ED Inclusion Special Education Teacher for Janiya Summers
[2023-02-24 16:21] LABS: Add Urine Microscopic? NO; Charge for UA Resulting for Rev
[2023-02-24 16:24] LABS: Bilirubin Urine Neg (Negative); Blood Urine Neg (Negative); Glucose Urine UA Norm (Normal); Ketones Urine Negative (Negative); Leukocyte Esterase Urine Negative (Negative); Nitrate Urine Negative (Negative); Protein Urine Neg (Negative); Urine Appearance Clear (CLEAR); Urine Color Yellow (Yellow); Urobilinogen Urine Norm (Negative); pH Urine 5 (5-7)
[2023-02-24] MEDS: metoclopramide 5 mg/mL SDV 2 mL 10 MG IM (16:25)
[2023-02-24] MEDS: diphenhydrAMINE 50 mg/mL SDV 1mL IM (16:25)
== END 2023-02-24 16:57 | disposition home or self-care (01) ==
PROVIDERS: Emergency Provider Emergency Medicine; PCP Family Medicine
DX: O26.891 Other specified pregnancy related conditions, first trimester (principal); R10.30 Lower abdominal pain, unspecified; Z3A.01 Less than 8 weeks gestation of pregnancy; Z79.84 Long term (current) use of oral hypoglycemic drugs
CPT/HCPCS: 36415; 76815; 76817; 81003; 84702; 85025; 96372; 99284; J1200; J2765

== ENCOUNTER → 2023-03-01 09:47 | Outpatient (BNVA) | payer MEDICAID, SELFPAY | PROVIDERS: PCP Family Medicine; Visit Provider Obstetrics & Gynecology | DX: O09.899 Supervision of other high risk pregnancies, unspecified trimester (principal); Z3A.01 Less than 8 weeks gestation of pregnancy | CPT/HCPCS: 76817 ==

== ENCOUNTER 2023-03-02 12:26 | Emergency (ER) | payer MEDICAID, SELFPAY ==
[2023-03-02 13:04] VITALS: BMI 27.8
[2023-03-02 13:49] VITALS: BP 100/66; PULSE 75; RESP 16; O2SAT 98
[2023-03-02 14:08] LABS: Basophils % 0.4 %; Eosinophils # 0.1 10^3/uL (0.0-0.8); Eosinophils % 0.7 %; Hematocrit 39.3 % (37.0-47.0); Hemoglobin 12.9 g/dL (11.5-15.3); Lymphocytes # 1.8 10^3/uL (0.8-4.8); Lymphocytes % 25.5 %; Mean Corpuscular HGB Conc 32.8 g/dL (30.0-36.0); Mean Corpuscular Hemoglobin 29.3 pg (28.0-34.0); Mean Corpuscular Volume 89.3 fl (81-99); Mean Platelet Volume 9.6 fL (7.4-10.4); Monocytes # 0.4 10^3/uL (0.2-0.9); Monocytes % 6.4 %; Neutrophils # 4.57 10^3/uL (1.8-7.7); Neutrophils % 66.9 %; Nucleated Red Blood Cells % 0 %; Platelet Count 263 10^3/cmm (130-400); Red Cell Distribution Width 11.8 % (12.1-15.1); White Blood Count 6.9 10^3/uL (4.0-10.0)
[2023-03-02] MEDS: sodium chloride 0.9% 1,000 ML 999 ML IV (14:10)
[2023-03-02 14:19] LABS: Urine Appearance Hazy (CLEAR); Urine Color Yellow (Yellow); pH Urine 7 (5-7)
[2023-03-02 14:20] LABS: Add Urine Microscopic? YES; Bilirubin Urine Neg (Negative); Blood Urine Neg (Negative); Glucose Urine UA Norm (Normal); Ketones Urine Negative (Negative); Leukocyte Esterase Urine Negative (Negative); Nitrate Urine Negative (Negative); Protein Urine Neg (Negative); RBC Urine 0-4 /hpf (0-2); Urobilinogen Urine 1 mg/dL (Negative); WBC Urine 0-4 /hpf (0-5)
[2023-03-02 14:21] LABS: Add Urine Culture? No; Amorphous Sediment Urine 2+ /hpf; Calcium Oxalate Crystals Urine 1 /hpf
--- NOTE | 2023-03-02 14:33 | W.ED.ABDPA2 ---
HPI - Abdominal Pain General: Chief Complaint: Abdominal Pain Stated Complaint: 6 weeks preg, abd pain, n/v Time Seen by Provider: 03/02/23 13:40 Source: patient Mode of arrival: ambulatory Limitations: no limitations History of Present Illness: Patient is a 33-year-old female who approximately 6 weeks here for complaints of right pelvic pain over the past several days. Patient states she had an ultrasound ordered by her OB yesterday which showed a live intrauterine but also showed something abnormal in her right adnexa and was told she could have a concurrent ectopic . She was told to come to the ED. Patient states she feels dizzy and weak. She does not have any vaginal bleeding or vaginal discharge. Patient reports a previous history of a tubal ligation with reversal. Related Data: Date of Last Menstrual Period: 01/14/23 [facility] PFSH: Medical History Anxiety Bipolar disorder Depression Endometriosis Fatigue No pertinent past medical history neghx: htn,dm,thyroid,dvt/pe PCP: Dr. Sawyer Deal Surgical History History of cholecystectomy History of reversal of tubal ligation History of tonsillectomy and adenoidectomy History of tubal ligation Hx of appendectomy Family History Grandfather Cancer skin cancer Hyperlipidemia maternal Hypertension maternal Heart disease maternal Mother Diabetes Hyperlipidemia Stroke Heart disease Father Stroke Heart disease Other CAD (coronary artery disease) Clotting disorder Dementia Lung disease Psychiatric illness Denies family history of Colon cancer Ovarian cancer Chronic kidney disease (CKD) Breast cancer Anesthesia complication Bleeding disorder Uterine cancer Thyroid condition Female Reproductive History: Date of last menstrual period: 01/14/23 Course Vital Signs: Vital signs: Vital Signs Pulse Rate 75 03/02/23 13:49 Respiratory Rate 16 03/02/23 13:49 Blood Pressure 100/66 03/02/23 13:49 Pulse Oximetry 98 03/02/23 13:49 MDM - Abdominal Pain Lab Data 03/02/23 13:47 03/02/23 13:47 Labs/Radiology: Laboratory Results WBC 6.9 10^3/uL (4.0-10.0) 03/02/23 13:47 RBC 4.40 10^6/uL (4.1-5.3) 03/02/23 13:47 Hgb 12.9 g/dL (11.5-15.3) 03/02/23 13:47 Hct 39.3 % (37.0-47.0) 03/02/23 13:47 MCV 89.3 fl (81-99) 03/02/23 13:47 MCH 29.3 pg (28.0-34.0) 03/02/23 13:47 MCHC 32.8 g/dL (30.0-36.0) 03/02/23 13:47 RDW 11.8 % (12.1-15.1) L 03/02/23 13:47 Plt Count 263 10^3/cmm (130-400) 03/02/23 13:47 MPV 9.6 fL (7.4-10.4) 03/02/23 13:47 Neut % (Auto) 66.9 % 03/02/23 13:47 Lymph % (Auto) 25.5 % 03/02/23 13:47 [place] % (Auto) 6.4 % 03/02/23 13:47 Eos % (Auto) 0.7 % 03/02/23 13:47 Baso % (Auto) 0.4 % 03/02/23 13:47 Neut # (Auto) 4.57 10^3/uL (1.8-7.7) 03/02/23 13:47 Lymph # (Auto) 1.8 10^3/uL (0.8-4.8) 03/02/23 13:47 [place] # (Auto) 0.4 10^3/uL (0.2-0.9) 03/02/23 13:47 Eos # (Auto) 0.1 10^3/uL (0.0-0.8) 03/02/23 13:47 Baso # (Auto) 0.0 10^3/uL (0.0-0.1) 03/02/23 13:47 Nucleated RBC % (auto) 0 % 03/02/23 13:47 Nucleated RBCs # 0.0 /100WBC 03/02/23 13:47 Sodium 139 mmol/L (136-145) 03/02/23 13:47 Potassium 3.5 mmol/L (3.5-5.1) 03/02/23 13:47 Chloride 103 mmol/L (98-107) 03/02/23 13:47 Carbon Dioxide 26 mmol/L (22-29) 03/02/23 13:47 Anion Gap 13.5 (5-19) 03/02/23 13:47 BUN 8 mg/dL (6-20) 03/02/23 13:47 Creatinine 0.4 mg/dL (0.5-0.9) L 03/02/23 13:47 GFR Calculation 186.2 mL/min (90-130) H 03/02/23 13:47 Glucose 82 mg/dL (65-115) 03/02/23 13:47 Calculated Osmolality 285 mOsm/kg (285-295) 03/02/23 13:47 Calcium 9.0 mg/dL (8.5-10.5) 03/02/23 13:47 Total Bilirubin 0.2 mg/dL (0.15-1.2) 03/02/23 13:47 AST 24 U/L (0-32) 03/02/23 13:47 ALT 25 U/L (0-33) 03/02/23 13:47 Alkaline Phosphatase 71 U/L (35-105) 03/02/23 13:47 Total Protein 6.8 g/dL (6.6-8.7) 03/02/23 13:47 Albumin 4.3 g/dL (3.5-5.2) 03/02/23 13:47 Globulin 2.5 g/dL (1.3-4.6) 03/02/23 13:47 Ser , Semi-Qnt 75681.00 mIU/mL 03/02/23 13:47 Urine Color Yellow (Yellow) 03/02/23 13:47 Urine Appearance Hazy (CLEAR) A 03/02/23 13:47 Urine pH 7 (5-7) 03/02/23 13:47 Ur Specific [place] 1.020 (1.005-1.030) 03/02/23 13:47 Urine Protein Neg (Negative) 03/02/23 13:47 Urine Glucose (UA) Norm (Normal) 03/02/23 13:47 Urine Ketones Negative (Negative) 03/02/23 13:47 Urine Blood Neg (Negative) 03/02/23 13:47 Urine Nitrate Negative (Negative) 03/02/23 13:47 Urine Bilirubin Neg (Negative) 03/02/23 13:47 Urine Urobilinogen 1 mg/dL (Negative) H 03/02/23 13:47 Ur Leukocyte Esterase Negative (Negative) 03/02/23 13:47 Urine RBC 0-4 /hpf (0-2) H 03/02/23 13:47 Urine WBC 0-4 /hpf (0-5) H 03/02/23 13:47 Ur Squamous Epith Cells 5-10 /hpf (0-5) H 03/02/23 13:47 Calcium Oxalate Crystal 1 /hpf 03/02/23 13:47 Amorphous Sediment 2+ /hpf 03/02/23 13:47 Urine Bacteria None /hpf (NONE) 03/02/23 13:47 Discharge Plan Discharge Condition: Stable Prescriptions: No Action albuterol sulfate 90 mcg/actuation HFA aerosol inhaler 1 inh inhalation QID PRN (Reason: shortness of breath or wheezing) Qty: 8.5 1RF Gummies 400 mcg-35 mg- 25 mg-5 mg tablet,chewable 2 tab PO QAM Tylenol Ex Str Rapid Release 500 mg Tablet 1,000 mg PO Q6H PRN (Reason: Pain) metformin 500 mg tablet extended release 24 hr 500 mg PO QAM Reglan 10 mg tablet 10 mg PO Q6H PRN (Reason: nausea and vomiting) Qty: 20 0RF Referrals: Sawyer Deal MD [Primary Care Provider] - Coding Level of Care Code ED Day Care Home Provider for Chg Kristopher
[2023-03-02] MEDS: metoclopramide 5 mg/mL SDV 2 mL IVP (14:37)
[2023-03-02 14:40] LABS: Alanine Aminotransferase 25 U/L (0-33); Albumin Level 4.3 g/dL (3.5-5.2); Alkaline Phosphatase 71 U/L (35-105); Anion Gap 13.5 (5-19); Aspartate Amino Transferase 24 U/L (0-32); Blood Urea Nitrogen 8 mg/dL (6-20); Carbon Dioxide 26 mmol/L (22-29); Chloride 103 mmol/L (98-107); Globulin 2.5 g/dL (1.3-4.6); Glomerular Filtration Rate 186.2 mL/min (90-130); Glucose 82 mg/dL (65-115); Osmolality Calculated 285 mOsm/kg (285-295); Potassium 3.5 mmol/L (3.5-5.1); Sodium 139 mmol/L (136-145); Total Bilirubin 0.2 mg/dL (0.15-1.2); Total Protein 6.8 g/dL (6.6-8.7)
--- NOTE | 2023-03-02 14:54 | USR_ITS ---
PROCEDURE INFORMATION: Exam: US , Transvaginal Exam date and time: 03/02/2023 3:45 PM Age: 33 years old Clinical indication: Other: Pelvic pain; Gestational age or lmp: 6w; ; Additional info: Abnormal findings yesterday; Poss concurrent ectopic? LABS AND CLINICAL REPORTS: Last menstrual period start date: 01/19/2023 Gestational age (Established): 6 w 0 d Estimated due date (Established): 10/26/2023 TECHNIQUE: Imaging protocol: Real-time transvaginal obstetrical ultrasound of the maternal pelvis with image documentation. Transvaginal imaging was used for better evaluation of the fetus, adnexa, and/or cervix. COMPARISON: OB transvaginal [id number] 03/01/2023 9:52 AM FINDINGS: Gestation: Yolk sac measures 2.2 mm. Single intrauterine gestational sac in the fundus. 2.2 mm yolk sac. heart rate: 79 bpm. 79 bpm. BIOMETRY: Gestational age (AUA): 6 w 0 d [place]-Rump length (CRL): 3.4 mm. EGA (CRL) is 6 w 0 d. 3.4 mm, 6 weeks 0 days MATERNAL: Cervix: Cervical length measures 3.6 cm. Unremarkable. 3.6 cm in length. Right ovary/adnexa: 3.0 x 2.4 x 3.8 cm with follicles and normal blood flow. A 1.9 cm follicle has a small amount of internal debris or blood products. Left ovary/adnexa: 1.8 x 2.0 x 2.0 cm with normal blood flow. Intraperitoneal space: Small amount of free fluid in the cul-de-sac. US/ OB transvaginal [id number] IMPRESSION: 1. Single viable intrauterine gestation estimated at 6 weeks 0 days. 2. Estimated due date 10/26/2023.
[2023-03-02] MEDS: acetaminophen 500 mg Tablet 1000 MG PO (14:57)
--- NOTE | 2023-03-02 15:39 | W.ED.FEMALGU ---
Documented by User: PASCUAL Mcnally 03/07/23 07:12 HPI - Female Genitourinary General: Chief complaint: Abdominal Pain Stated complaint: 6 weeks preg, abd pain, n/v Time Seen by Provider: 03/02/23 13:40 Source: patient Mode of arrival: ambulatory Limitations: no limitations History of Present Illness: Patient is a 33-year-old female who approximately 6 weeks here for complaints of right pelvic pain over the past several days (although looking at previous documentation it looks like she has had pain/cramping throughout over the past several weeks). Patient states she had an ultrasound ordered by her OB yesterday which showed a live intrauterine but also showed something abnormal in her right adnexa and was told she could have a concurrent ectopic . She was told to come to the ED. Patient states she feels dizzy and weak and has vomiting. She does not have any vaginal bleeding or vaginal discharge. Patient reports a previous history of a tubal ligation with reversal. MD elicited complaint: pelvic pain Pertinent past history: tubal ligation (with reversal) and other (currently ) Severity: moderate Female Urogenital Radiation: LRQ Quality of pain: sharp Consistency: constant Vaginal discharge: none Vaginal bleeding: none Exacerbating factors: none Relieving factors: none Associated symptoms: Reports abdominal pain, nausea and weakness; Deny headache(s) or vaginal discharge Treatment prior to arrival: none Sexual activity: Yes Patient : Yes Date of Last Menstrual Period: 01/14/23 Review of Systems Const: Denies: fever(s), chills, body aches, fatigue or malaise Card: Denies: chest pain Resp: Denies: dyspnea GI: Reports: abdominal pain, nausea and vomiting; Denies: diarrhea or change in bowel habits : Reports: pelvic pain; Denies: flank pain, difficulty voiding, dysuria, urinary frequency, urinary urgency, urinary hesitancy, genital lesions, vaginal odor, vaginal bleeding or vaginal discharge Musc: Denies: neck pain, back pain, extremity pain or joint pain Skin/Breast: Denies: rash Neuro: Denies: headache(s), numbness in extremities, weakness in extremities or sensory changes PFS ED PFSH: Medical History (Updated 03/05/23 @ 14:48 by Lauren Hough MD) Anxiety Bipolar disorder Endometriosis No pertinent past medical history neghx: htn,dm,thyroid,dvt/pe PCP: Dr. Sawyer Deal TIA (transient ischemic attack) Surgical History History of cholecystectomy History of reversal of tubal ligation History of tonsillectomy and adenoidectomy History of tubal ligation Hx of appendectomy Family History Grandfather Cancer skin cancer Hyperlipidemia maternal Hypertension maternal Heart disease maternal Mother Diabetes Hyperlipidemia Stroke Heart disease Father Stroke Heart disease Other CAD (coronary artery disease) Clotting disorder Dementia Lung disease Psychiatric illness Denies family history of Colon cancer Ovarian cancer Chronic kidney disease (CKD) Breast cancer Anesthesia complication Bleeding disorder Uterine cancer Thyroid condition Female Reproductive History: Date of last menstrual period: 01/14/23 Physical Exam Const: COMMON NORMALS: no acute distress, average body habitus, patient oriented x3, no limitations, healthy appearing, alert and well nourished GENERAL APPEARANCE: cooperative ORIENTATION/CONSCIOUSNESS: Yes awake, Yes oriented to person, Yes oriented to place and Yes oriented to time Resp: COMMON NORMALS: normal respiratory effort and clear to auscultation bilaterally AUSCULTATION: clear to auscultation bilaterally Cardio: COMMON NORMALS: regular rate and regular rhythm RATE: regular rate RHYTHM: regular rhythm GI: COMMON NORMALS: Normal to inspection, nondistended, normoactive bowel sounds present, Soft to palpation, No hepatosplenomegaly present and no masses INSPECTION: Yes normal to inspection AUSCULTATION: Yes normoactive bowel sounds PALPATION: Yes Soft to palpation, Yes Tenderness to palpation present (GI) (R pelvis-states all over that area ) Details: RLQ and Yes No hepatosplenomegaly present : COMMON NORMALS: Yes no CVA tenderness BLADDER/KIDNEY EXAM: Yes no CVA tenderness Back/Pelvis: COMMON NORMALS: no CVA tenderness, thoracic and lumbar spine normal to inspection, no thoracic nor lumbar tenderness and thoraco-lumbar ROM normal Extremity: COMMON NORMALS: normal to inspection GENERAL: Yes normal exam except as noted Neuro: JEROME COMA SCALE: document GCS findings Gilbert coma scale eye opening: Spontaneous Jerome coma scale verbal response: Orientated Jerome coma scale motor response: Obey commands Gilbert coma scale total score: 15 COMMON NORMALS: patient oriented x3, moves all extremities, no focal motor deficits and no sensory deficits noted SENSORIUM/ORIENTATION: Yes alert, Yes oriented to person, Yes oriented to place and Yes oriented to time Skin: COMMON NORMALS: no rashes or lesions noted GENERAL SKIN EXAM: no rashes or lesions noted Course ED course: Care transferred to BILL Gonzalez pending ultrasound results and re-consultation with Dr. Hough. At this time patient appears in no acute distress. Her vital signs are stable. H&H are normal. Consultations: Consultation #1: Dr. Hough-recommends repeating TV OB US and call with results Vital Signs: Vital signs: Vital Signs Pulse Rate 90 03/02/23 17:21 Respiratory Rate 16 03/02/23 17:21 Blood Pressure 105/64 03/02/23 17:21 Pulse Oximetry 100 03/02/23 17:21 MDM - Female Lab Data 03/02/23 13:47 03/02/23 13:47 Radiology Impressions Transvaginal US 03/02/23 14:54 IMPRESSION: 1. Single viable intrauterine gestation estimated at 6 weeks 0 days. 2. Estimated due date 10/26/2023. Laboratory Results WBC 6.9 10^3/uL (4.0-10.0) 03/02/23 13:47 RBC 4.40 10^6/uL (4.1-5.3) 03/02/23 13:47 Hgb 12.9 g/dL (11.5-15.3) 03/02/23 13:47 Hct 39.3 % (37.0-47.0) 03/02/23 13:47 MCV 89.3 fl (81-99) 03/02/23 13:47 MCH 29.3 pg (28.0-34.0) 03/02/23 13:47 MCHC 32.8 g/dL (30.0-36.0) 03/02/23 13:47 RDW 11.8 % (12.1-15.1) L 03/02/23 13:47 Plt Count 263 10^3/cmm (130-400) 03/02/23 13:47 MPV 9.6 fL (7.4-10.4) 03/02/23 13:47 Neut % (Auto) 66.9 % 03/02/23 13:47 Lymph % (Auto) 25.5 % 03/02/23 13:47 [place] % (Auto) 6.4 % 03/02/23 13:47 Eos % (Auto) 0.7 % 03/02/23 13:47 Baso % (Auto) 0.4 % 03/02/23 13:47 Neut # (Auto) 4.57 10^3/uL (1.8-7.7) 03/02/23 13:47 Lymph # (Auto) 1.8 10^3/uL (0.8-4.8) 03/02/23 13:47 [place] # (Auto) 0.4 10^3/uL (0.2-0.9) 03/02/23 13:47 Eos # (Auto) 0.1 10^3/uL (0.0-0.8) 03/02/23 13:47 Baso # (Auto) 0.0 10^3/uL (0.0-0.1) 03/02/23 13:47 Nucleated RBC % (auto) 0 % 03/02/23 13:47 Nucleated RBCs # 0.0 /100WBC 03/02/23 13:47 Sodium 139 mmol/L (136-145) 03/02/23 13:47 Potassium 3.5 mmol/L (3.5-5.1) 03/02/23 13:47 Chloride 103 mmol/L (98-107) 03/02/23 13:47 Carbon Dioxide 26 mmol/L (22-29) 03/02/23 13:47 Anion Gap 13.5 (5-19) 03/02/23 13:47 BUN 8 mg/dL (6-20) 03/02/23 13:47 Creatinine 0.4 mg/dL (0.5-0.9) L 03/02/23 13:47 GFR Calculation 186.2 mL/min (90-130) H 03/02/23 13:47 Glucose 82 mg/dL (65-115) 03/02/23 13:47 Calculated Osmolality 285 mOsm/kg (285-295) 03/02/23 13:47 Calcium 9.0 mg/dL (8.5-10.5) 03/02/23 13:47 Total Bilirubin 0.2 mg/dL (0.15-1.2) 03/02/23 13:47 AST 24 U/L (0-32) 03/02/23 13:47 ALT 25 U/L (0-33) 03/02/23 13:47 Alkaline Phosphatase 71 U/L (35-105) 03/02/23 13:47 Total Protein 6.8 g/dL (6.6-8.7) 03/02/23 13:47 Albumin 4.3 g/dL (3.5-5.2) 03/02/23 13:47 Globulin 2.5 g/dL (1.3-4.6) 03/02/23 13:47 Ser , Semi-Qnt 84719.00 mIU/mL 03/02/23 13:47 Urine Color Yellow (Yellow) 03/02/23 13:47 Urine Appearance Hazy (CLEAR) A 03/02/23 13:47 Urine pH 7 (5-7) 03/02/23 13:47 Ur Specific Atkinson 1.020 (1.005-1.030) 03/02/23 13:47 Urine Protein Neg (Negative) 03/02/23 13:47 Urine Glucose (UA) Norm (Normal) 03/02/23 13:47 Urine Ketones Negative (Negative) 03/02/23 13:47 Urine Blood Neg (Negative) 03/02/23 13:47 Urine Nitrate Negative (Negative) 03/02/23 13:47 Urine Bilirubin Neg (Negative) 03/02/23 13:47 Urine Urobilinogen 1 mg/dL (Negative) H 03/02/23 13:47 Ur Leukocyte Esterase Negative (Negative) 03/02/23 13:47 Urine RBC 0-4 /hpf (0-2) H 03/02/23 13:47 Urine WBC 0-4 /hpf (0-5) H 03/02/23 13:47 Ur Squamous Epith Cells 5-10 /hpf (0-5) H 03/02/23 13:47 Calcium Oxalate Crystal 1 /hpf 03/02/23 13:47 Amorphous Sediment 2+ /hpf 03/02/23 13:47 Urine Bacteria None /hpf (NONE) 03/02/23 13:47 Discharge Plan Discharge Patient Disposition: Home Clinical Impression: Abdominal pain affecting Condition: Stable Prescriptions: No Action albuterol sulfate 90 mcg/actuation HFA aerosol inhaler 1 inh inhalation QID PRN (Reason: shortness of breath or wheezing) Qty: 8.5 1RF Gummies 400 mcg-35 mg- 25 mg-5 mg tablet,chewable 2 tab PO QAM promethazine 50 mg tablet 50 mg PO Q6H PRN (Reason: sedation) Qty: 90 2RF ondansetron 4 mg tablet,disintegrating 4 mg PO Q6H Qty: 30 2RF Tylenol Ex Str Rapid Release 500 mg Tablet 1,000 mg PO Q6H PRN (Reason: Pain) metformin 500 mg tablet extended release 24 hr 500 mg PO QAM Discharge Orders: Discharge ED (Routine); Ordered 03/02/23 Ordered By: Fei Krishnan Referrals: Sawyer Deal MD [Primary Care Provider] - Discharge Diet: Usual diet Discharge Activity: Increase activity as tolerated Patient Instructions: Abdominal Pain (ED) Activity Restrictions/Additional Instructions: Home and rest. Drink plenty of water and fluids. You may use acetaminophen or ibuprofen for pain and discomfort. Follow-up with Dr. Hough or your TYPE [employer] AND SEGMENT ASSEMBLER. Return to ER for new concerns. Sign Out Sign Out Data: Patient Sign Out occurred on 03/02/23 at 16:59. Patient's care was discussed, and care was transferred from to Fei Krishnan. Coding Level of Care Code ED Platform Operations Director for [facility] Documented by User: BILL Huber 03/02/23 17:21 HPI - Female Genitourinary General: Chief complaint: Abdominal Pain Stated complaint: 6 weeks preg, abd pain, n/v Time Seen by Provider: 03/02/23 13:40 PFSH ED PFSH: Medical History (Updated 03/05/23 @ 14:48 by Lauren Hough MD) Anxiety Bipolar disorder Endometriosis No pertinent past medical history neghx: htn,dm,thyroid,dvt/pe PCP: Dr. Sawyer Deal TIA (transient ischemic attack) Surgical History History of cholecystectomy History of reversal of tubal ligation History of tonsillectomy and adenoidectomy History of tubal ligation Hx of appendectomy Family History Grandfather Cancer skin cancer Hyperlipidemia maternal Hypertension maternal Heart disease maternal Mother Diabetes Hyperlipidemia Stroke Heart disease Father Stroke Heart disease Other CAD (coronary artery disease) Clotting disorder Dementia Lung disease Psychiatric illness Denies family history of Colon cancer Ovarian cancer Chronic kidney disease (CKD) Breast cancer Anesthesia complication Bleeding disorder Uterine cancer Thyroid condition Physical Exam Neuro: JEROME COMA SCALE: document GCS findings Gilbert coma scale total score: 15 Course Vital Signs: Vital signs: Vital Signs Pulse Rate 90 03/02/23 17:21 Respiratory Rate 16 03/02/23 17:21 Blood Pressure 105/64 03/02/23 17:21 Pulse Oximetry 100 03/02/23 17:21 MDM - Female Medical Decision Making Patient comes in today for reevaluation secondary to abdominal pain and abnormal ultrasound yesterday. I received this patient from Christine Keith PA-C. We were awaiting ultrasound report and discussion further with Dr. Hough. Results of the ultrasound came back showing a viable intrauterine at 6 weeks. I reviewed this with Dr. Hough who recommended acetaminophen or ibuprofen for discomfort and follow-up in the office. Patient reported understanding and agreed to plan. Lab Data 03/02/23 13:47 03/02/23 13:47 Radiology Impressions Transvaginal US 03/02/23 14:54 IMPRESSION: 1. Single viable intrauterine gestation estimated at 6 weeks 0 days. 2. Estimated due date 10/26/2023. Laboratory Results WBC 6.9 10^3/uL (4.0-10.0) 03/02/23 13:47 RBC 4.40 10^6/uL (4.1-5.3) 03/02/23 13:47 Hgb 12.9 g/dL (11.5-15.3) 03/02/23 13:47 Hct 39.3 % (37.0-47.0) 03/02/23 13:47 MCV 89.3 fl (81-99) 03/02/23 13:47 MCH 29.3 pg (28.0-34.0) 03/02/23 13:47 MCHC 32.8 g/dL (30.0-36.0) 03/02/23 13:47 RDW 11.8 % (12.1-15.1) L 03/02/23 13:47 Plt Count 263 10^3/cmm (130-400) 03/02/23 13:47 MPV 9.6 fL (7.4-10.4) 03/02/23 13:47 Neut % (Auto) 66.9 % 03/02/23 13:47 Lymph % (Auto) 25.5 % 03/02/23 13:47 [place] % (Auto) 6.4 % 03/02/23 13:47 Eos % (Auto) 0.7 % 03/02/23 13:47 Baso % (Auto) 0.4 % 03/02/23 13:47 Neut # (Auto) 4.57 10^3/uL (1.8-7.7) 03/02/23 13:47 Lymph # (Auto) 1.8 10^3/uL (0.8-4.8) 03/02/23 13:47 [place] # (Auto) 0.4 10^3/uL (0.2-0.9) 03/02/23 13:47 Eos # (Auto) 0.1 10^3/uL (0.0-0.8) 03/02/23 13:47 Baso # (Auto) 0.0 10^3/uL (0.0-0.1) 03/02/23 13:47 Nucleated RBC % (auto) 0 % 03/02/23 13:47 Nucleated RBCs # 0.0 /100WBC 03/02/23 13:47 Sodium 139 mmol/L (136-145) 03/02/23 13:47 Potassium 3.5 mmol/L (3.5-5.1) 03/02/23 13:47 Chloride 103 mmol/L (98-107) 03/02/23 13:47 Carbon Dioxide 26 mmol/L (22-29) 03/02/23 13:47 Anion Gap 13.5 (5-19) 03/02/23 13:47 BUN 8 mg/dL (6-20) 03/02/23 13:47 Creatinine 0.4 mg/dL (0.5-0.9) L 03/02/23 13:47 GFR Calculation 186.2 mL/min (90-130) H 03/02/23 13:47 Glucose 82 mg/dL (65-115) 03/02/23 13:47 Calculated Osmolality 285 mOsm/kg (285-295) 03/02/23 13:47 Calcium 9.0 mg/dL (8.5-10.5) 03/02/23 13:47 Total Bilirubin 0.2 mg/dL (0.15-1.2) 03/02/23 13:47 AST 24 U/L (0-32) 03/02/23 13:47 ALT 25 U/L (0-33) 03/02/23 13:47 Alkaline Phosphatase 71 U/L (35-105) 03/02/23 13:47 Total Protein 6.8 g/dL (6.6-8.7) 03/02/23 13:47 Albumin 4.3 g/dL (3.5-5.2) 03/02/23 13:47 Globulin 2.5 g/dL (1.3-4.6) 03/02/23 13:47 Ser , Semi-Qnt 61046.00 mIU/mL 03/02/23 13:47 Urine Color Yellow (Yellow) 03/02/23 13:47 Urine Appearance Hazy (CLEAR) A 03/02/23 13:47 Urine pH 7 (5-7) 03/02/23 13:47 Ur Specific [place] 1.020 (1.005-1.030) 03/02/23 13:47 Urine Protein Neg (Negative) 03/02/23 13:47 Urine Glucose (UA) Norm (Normal) 03/02/23 13:47 Urine Ketones Negative (Negative) 03/02/23 13:47 Urine Blood Neg (Negative) 03/02/23 13:47 Urine Nitrate Negative (Negative) 03/02/23 13:47 Urine Bilirubin Neg (Negative) 03/02/23 13:47 Urine Urobilinogen 1 mg/dL (Negative) H 03/02/23 13:47 Ur Leukocyte Esterase Negative (Negative) 03/02/23 13:47 Urine RBC 0-4 /hpf (0-2) H 03/02/23 13:47 Urine WBC 0-4 /hpf (0-5) H 03/02/23 13:47 Ur Squamous Epith Cells 5-10 /hpf (0-5) H 03/02/23 13:47 Calcium Oxalate Crystal 1 /hpf 03/02/23 13:47 Amorphous Sediment 2+ /hpf 03/02/23 13:47 Urine Bacteria None /hpf (NONE) 03/02/23 13:47 Discharge Plan Discharge Patient Disposition: Home Clinical Impression: Abdominal pain affecting Condition: Stable Prescriptions: No Action albuterol sulfate 90 mcg/actuation HFA aerosol inhaler 1 inh inhalation QID PRN (Reason: shortness of breath or wheezing) Qty: 8.5 1RF Gummies 400 mcg-35 mg- 25 mg-5 mg tablet,chewable 2 tab PO QAM promethazine 50 mg tablet 50 mg PO Q6H PRN (Reason: sedation) Qty: 90 2RF ondansetron 4 mg tablet,disintegrating 4 mg PO Q6H Qty: 30 2RF Tylenol Ex Str Rapid Release 500 mg Tablet 1,000 mg PO Q6H PRN (Reason: Pain) metformin 500 mg tablet extended release 24 hr 500 mg PO QAM Discharge Orders: Discharge ED (Routine); Ordered 03/02/23 Ordered By: Fei Krishnan Referrals: Sawyer Deal MD [Primary Care Provider] - Discharge Diet: Usual diet Discharge Activity: Increase activity as tolerated Patient Instructions: Abdominal Pain (ED) Activity Restrictions/Additional Instructions: Home and rest. Drink plenty of water and fluids. You may use acetaminophen or ibuprofen for pain and discomfort. Follow-up with Dr. Hough or your TYPE [employer] AND SEGMENT ASSEMBLER. Return to ER for new concerns. Sign Out Sign Out Data: Patient Sign Out occurred on 03/02/23 at 16:59. Patient's care was discussed, and care was transferred from to Fei Krishnan. Coding Level of Care Code ED Platform Operations Director for Janiya Summers
[2023-03-02 16:17] VITALS: BP 103/58; PULSE 74; RESP 16; O2SAT 98
[2023-03-02 16:47] VITALS: BP 92/62
[2023-03-02 17:21] VITALS: BP 105/64; PULSE 90; RESP 16; O2SAT 100
== END 2023-03-02 17:22 | disposition home or self-care (01) ==
PROVIDERS: Physician Assistant; Emergency Provider Nurse Practitioner Family; PCP Family Medicine
DX: O99.891 Other specified diseases and conditions complicating pregnancy (principal); R10.9 Unspecified abdominal pain; Z3A.01 Less than 8 weeks gestation of pregnancy; Z86.73 Personal history of transient ischemic attack (TIA), and cerebral infarction without residual deficits
CPT/HCPCS: 76817; 80053; 81001; 84702; 85025; 96374; 99284; J2765; J7030

== ENCOUNTER → 2023-03-03 09:14 | Outpatient (BNVA) | payer MEDICAID, SELFPAY | PROVIDERS: PCP Family Medicine; Visit Provider Obstetrics & Gynecology | DX: Z34.90 Encounter for supervision of normal pregnancy, unspecified, unspecified trimester (principal) | CPT/HCPCS: 81000 ==

== ENCOUNTER → 2023-03-07 11:36 | Outpatient (BNVA) | payer MEDICAID, SELFPAY | PROVIDERS: PCP Family Medicine; Visit Provider Obstetrics & Gynecology | DX: O09.899 Supervision of other high risk pregnancies, unspecified trimester (principal); Z3A.01 Less than 8 weeks gestation of pregnancy | CPT/HCPCS: 76817 ==

== ENCOUNTER → 2023-03-31 10:00 | Outpatient (BNVA) | payer MEDICAID, SELFPAY | PROVIDERS: PCP Family Medicine; Visit Provider Obstetrics & Gynecology | DX: O09.899 Supervision of other high risk pregnancies, unspecified trimester (principal); F31.9 Bipolar disorder, unspecified; F41.9 Anxiety disorder, unspecified; R76.8 Other specified abnormal immunological findings in serum; G43.019 Migraine without aura, intractable, without status migrainosus; J45.909 Unspecified asthma, uncomplicated; O21.9 Vomiting of pregnancy, unspecified; E16.1 Other hypoglycemia; Z3A.00 Weeks of gestation of pregnancy not specified | CPT/HCPCS: 80307; 84315; 84443; 85027; 86592; 86762; 86803; 86850; 86900; 87086; 87340; 87806 ==

== ENCOUNTER → 2023-04-12 13:41 | Outpatient (BNVA) | payer MEDICAID, SELFPAY | PROVIDERS: PCP Family Medicine; Visit Provider Nurse Practitioner Women's Health | DX: O20.9 Hemorrhage in early pregnancy, unspecified (principal); Z3A.11 11 weeks gestation of pregnancy | CPT/HCPCS: 76801; 84702 ==

== ENCOUNTER 2023-05-10 07:14 | Outpatient (CLI) | payer MEDICAID, SELFPAY | END 2023-05-10 07:15 | disposition home or self-care (01) | PROVIDERS: PCP Family Medicine; Visit Provider Obstetrics & Gynecology | DX: N92.6 Irregular menstruation, unspecified (principal) | CPT/HCPCS: 36415; 84702 ==

== ENCOUNTER → 2023-06-09 11:01 | Outpatient (BNVA) | payer MEDICAID, SELFPAY | PROVIDERS: PCP Family Medicine; Visit Provider Nurse Practitioner Women's Health | DX: R10.2 Pelvic and perineal pain (principal) | CPT/HCPCS: 85025 ==

== ENCOUNTER → 2023-06-23 11:59 | Outpatient (BNVA) | payer MEDICAID, SELFPAY | PROVIDERS: PCP Family Medicine; Visit Provider Nurse Practitioner Family | DX: M25.561 Pain in right knee (principal) | CPT/HCPCS: 73562 ==

== ENCOUNTER 2023-06-30 17:50 | Emergency (ER) | payer MEDICAID, SELFPAY ==
[2023-06-30 17:55] VITALS: BP 121/85; PULSE 82; RESP 14; TEMP 36.8; O2SAT 98; BMI 29.0
--- NOTE | 2023-06-30 18:10 | XRR_ITS ---
PROCEDURE INFORMATION: Exam: XR Right Knee Exam date and time: 06/30/2023 6:54 PM Age: 33 years old Clinical indication: Injury or trauma; Fall; Other: Unknown TECHNIQUE: Imaging protocol: Radiologic exam of the right knee. Views: 3 views. COMPARISON: CR XR knee RT 3V* [id number] 06/23/2023 12:07 PM FINDINGS: Bones/joints: Normal. Soft tissues: Normal. XR/XR knee RT 3V* [id number] IMPRESSION: No acute findings.
--- NOTE | 2023-06-30 18:10 | XRR_ITS ---
PROCEDURE INFORMATION: Exam: XR Right Hip Exam date and time: 06/30/2023 6:54 PM Age: 33 years old Clinical indication: Injury or trauma; Fall; Other: Unknown TECHNIQUE: Imaging protocol: Radiologic exam of the right hip. Views: 1 view hip with pelvis when performed. COMPARISON: CT abdomen pelvis w con* [id number] 02/27/2020 7:39 PM FINDINGS: Bones/joints: Unremarkable. No acute fracture. Soft tissues: Unremarkable. XR/XR hip RT 2-3V wo/w pel* [id number] IMPRESSION: No acute findings.
--- NOTE | 2023-06-30 18:36 | ED_ITS ---
HPI - Extremity Problem General: Chief complaint: Extremity Injury, Lower Stated complaint: fell hurt knee Time Seen by Provider: 06/30/23 18:31 History of Present Illness: 33-year-old female comes in today with complaints of right knee pain right hip pain and low back pain. Patient reports she slipped on the floor striking her right knee against the ground today. Patient said persistent pain and discomfort to the right knee since an injury 3 weeks ago. Patient reinjured the knee today. X-ray from last week was negative for bony abnormality. Normal alignment is noted. Tenderness is noted. Patient appears nontoxic. Patient appears in mild to moderate pain. Associated symptoms: Deny chest pain or rash Review of Systems General: Reports: 10 or more systems reviewed and unremarkable except in HPI and below Card: Denies: chest pain Resp: Denies: dyspnea GI: Denies: nausea or vomiting : Denies: difficulty voiding Musc: Reports: extremity pain Skin/Breast: Denies: rash PFSH ED PFSH: Medical History Anxiety Bipolar disorder Endometriosis No pertinent past medical history neghx: htn,dm,thyroid,dvt/pe PCP: Dr. Sawyer Deal TIA (transient ischemic attack) Surgical History History of cholecystectomy History of reversal of tubal ligation History of tonsillectomy and adenoidectomy History of tubal ligation Hx of appendectomy Family History Grandfather Cancer skin cancer Hyperlipidemia maternal Hypertension maternal Heart disease maternal Mother Diabetes Hyperlipidemia Stroke Heart disease Father Stroke Heart disease Other CAD (coronary artery disease) Clotting disorder Dementia Lung disease Psychiatric illness Denies family history of Colon cancer Ovarian cancer Chronic kidney disease (CKD) Breast cancer Anesthesia complication Bleeding disorder Uterine cancer Thyroid disease Female Reproductive History: Date of last menstrual period: 06/30/23 Physical Exam Const: COMMON NORMALS: alert HENMT: COMMON NORMALS: normocephalic HEAD & SCALP: normocephalic MOUTH: Normal oral and palatal mucosa present Neck/C-Spine: COMMON NORMALS: full ROM Resp: COMMON NORMALS: normal respiratory effort Cardio: COMMON NORMALS: regular rate RATE: regular rate GI: COMMON NORMALS: non-tender Back/Pelvis: LUMBAR SPINE/LOWER BACK: No lumbar spinal tenderness and Yes paraspinal muscle tenderness Extremity: COMMON NORMALS: normal to inspection RIGHT LOWER EXTREMITY: Yes hip joint (Lateral tenderness) and Yes knee joint (Anterior tenderness, no obvious swelling or bruising) Right knee: Yes inspection, Yes palpation and Yes ROM (Guarded movement due to pain) Neuro: SENSORIUM/ORIENTATION: Yes alert Skin: COMMON NORMALS: turgor normal GENERAL SKIN EXAM: turgor normal Course Vital Signs: Vital signs: Vital Signs Temperature 98.3 F 06/30/23 17:55 Pulse Rate 81 06/30/23 18:40 Respiratory Rate 18 06/30/23 18:40 Blood Pressure 122/73 06/30/23 18:40 Pulse Oximetry 96 06/30/23 18:40 Oxygen Delivery Me thod Room Air 06/30/23 18:40 MDM - Extremity (Nontraumatic) Medical Decision Making 33-year-old female comes in today for complaints of injury to the right knee. Patient injured the knee 3 weeks ago and then slipped and injured it today again. Patient also complains of hip and low back pain. On exam patient has a anterior knee tenderness with no significant bruising or swelling. Range of motion is limited due to pain. Patient appears nontoxic. Patient appears no acute distress. Differential diagnosis includes but not limited to fracture, sprain, contusion. X-ray of the right knee, right hip, and lumbar spine showed no signs of acute fracture or bony abnormality. Reviewed exam with patient recommended Haile wrap for the knee and crutches until she can bear weight comfortably. Recommend follow-up with primary care in 1 week for recheck. Return to ED for new concerns or worsening symptoms. XR interpretation done by ED provider, pending radiology final review Discharge Plan Discharge Patient Disposition: Home Clinical Impression: Contusion of right knee Qualifiers: Encounter type: initial encounter Qualified Code(s): S80.01XA - Contusion of right knee, initial encounter Condition: Stable Prescriptions: No Action albuterol sulfate 90 mcg/actuation HFA aerosol inhaler 1 inh inhalation QID PRN (Reason: shortness of breath or wheezing) Qty: 8.5 1RF Gummies 400 mcg-35 mg- 25 mg-5 mg tablet,chewable 2 tab PO QAM ibuprofen 800 mg tablet 800 mg PO Q8H PRN (Reason: pain) Qty: 30 1RF rizatriptan [Maxalt-CUST[employer] M[employer]ER] 10 mg tablet,disintegrating See Rx Instructions PO .COMPLEX Qty: 10 0RF Rx Instructions: take 1 tab at onset of headache; if no relief may repeat 1 tab after at least 2 hrs; max = 3 tabs/24 hr PO diclofenac sodium 75 mg tablet,delayed release (DR/EC) 75 mg PO BID PRN (Reason: pain) Qty: 60 0RF Rx Instructions: no ibuprofen with this Tylenol Ex Str Rapid Release 500 mg Tablet 1,000 mg PO Q6H PRN (Reason: Pain) metformin 500 mg tablet extended release 24 hr 500 mg PO QAM Discharge Orders: Discharge ED (Routine); Ordered 06/30/23 Ordered By: Fei Krishnan Referrals: Sawyer Deal MD [Primary Care Provider] - Discharge Diet: Usual diet Discharge Activity: Increase activity as tolerated Patient Instructions: Contusion in Adults (ED) Activity Restrictions/Additional Instructions: Increase activity as tolerated. Use acetaminophen and/or ibuprofen as needed for pain and discomfort. Use ice packs for further pain relief. Use compr ession wrap for comfort. Use crutches until you can bear weight comfortably on extremity. Follow-up with primary care in 1 week for recheck. Return to ED for new concerns. Coding Level of Care Code ED Director Of Institutional Research for Janiya Summers
[2023-06-30 18:40] VITALS: BP 122/73; PULSE 81; RESP 18; O2SAT 96
--- NOTE | 2023-06-30 18:41 | XRR_ITS ---
PROCEDURE INFORMATION: Exam: XR Lumbosacral Spine Exam date and time: 06/30/2023 6:54 PM Age: 33 years old Clinical indication: Injury or trauma; Fall; Other: Unknown; Additional info: Fall injury TECHNIQUE: Imaging protocol: Radiologic exam of the lumbosacral spine. Views: 2 or 3 views. COMPARISON: CR XR sacrum coccyx min 2V [id number] 04/16/2019 5:48 PM FINDINGS: Bones/joints: Normal. No acute fracture. Normal alignment. Soft tissues: Unremarkable. XR/XR lumbar spine 2-3V* [id number] IMPRESSION: No acute findings.
[2023-06-30] MEDS: ketorolac 10 mg Tablet PO (18:52)
[2023-06-30 20:17] LABS: HCG Qualitative Urine. Negative (Negative)
== END 2023-06-30 19:54 | disposition home or self-care (01) ==
PROVIDERS: Emergency Provider Nurse Practitioner Family; PCP Family Medicine
DX: S80.01XA Contusion of right knee, initial encounter (principal); Z79.84 Long term (current) use of oral hypoglycemic drugs; Z86.73 Personal history of transient ischemic attack (TIA), and cerebral infarction without residual deficits; W01.0XXA Fall on same level from slipping, tripping and stumbling without subsequent striking against object, initial encounter
CPT/HCPCS: 72100; 73502; 73562; 81025; 99284; E0114

== ENCOUNTER → 2023-07-18 10:08 | Outpatient (BNVA) | payer MEDICAID, SELFPAY | PROVIDERS: PCP Family Medicine; Visit Provider Obstetrics & Gynecology | DX: N92.0 Excessive and frequent menstruation with regular cycle (principal) | CPT/HCPCS: 83001; 84146; 84443; 84702; 85025 ==

== ENCOUNTER → 2023-07-26 10:19 | Outpatient (BNVA) | payer MEDICAID, SELFPAY | PROVIDERS: PCP Family Medicine; Visit Provider Obstetrics & Gynecology | DX: N92.0 Excessive and frequent menstruation with regular cycle (principal) | CPT/HCPCS: 76830 ==

== ENCOUNTER → 2023-07-27 11:28 | Outpatient (BNVA) | payer MEDICAID, SELFPAY | PROVIDERS: PCP Family Medicine; Visit Provider Family Medicine | DX: R07.9 Chest pain, unspecified (principal) | CPT/HCPCS: 71046 ==

== ENCOUNTER 2023-08-09 16:05 | Outpatient (CLI) | payer MEDICAID, SELFPAY ==
--- NOTE | 2023-08-09 16:00 | MR_ITS ---
WS: [id number] MRI RIGHT KNEE HISTORY: M25.561 - Pain in right knee COMPARISON: Radiographs 06/30/2023 Anterior cruciate ligament: Intact. Posterior cruciate ligament: Intact. Medial collateral ligament: Intact. Posterior lateral corner structures: Intact. Medial menisci: Intact. Normal signal, size and shape. Lateral meniscus: Intact. Normal signal, size and shape. Extensor mechanism: Distal quadriceps tendon and patellar tendons are intact. Fluid and soft tissue: No joint effusion. No Stevenson's cyst. Osseous and articular structures: Patellofemoral compartment: Normal. Medial compartment: Normal. Lateral compartment: Normal. IMPRESSION: Normal MRI right knee.
== END 2023-08-09 16:06 | disposition home or self-care (01) ==
LOC: RAD 16:05
PROVIDERS: PCP Family Medicine; Visit Provider Nurse Practitioner Family
DX: M25.561 Pain in right knee (principal)
CPT/HCPCS: 73721

== ENCOUNTER → 2023-08-30 15:26 | Outpatient (BNVA) | payer MEDICAID, SELFPAY | PROVIDERS: PCP Family Medicine; Visit Provider Internal Medicine | DX: G89.29 Other chronic pain (principal); R76.8 Other specified abnormal immunological findings in serum; E55.9 Vitamin D deficiency, unspecified; R53.83 Other fatigue; Z79.899 Other long term (current) drug therapy | CPT/HCPCS: 36415; 80053; 81003; 85025; 85651; 86140 ==

== ENCOUNTER → 2023-09-16 13:09 | Outpatient (BNVA) | payer MEDICAID, SELFPAY | PROVIDERS: PCP Family Medicine; Visit Provider Family Medicine | DX: Z20.828 Contact with and (suspected) exposure to other viral communicable diseases (principal); G43.909 Migraine, unspecified, not intractable, without status migrainosus; M79.7 Fibromyalgia | CPT/HCPCS: 87400 ==

== ENCOUNTER 2023-11-27 12:09 | Emergency (ER) | payer MEDICAID, SELFPAY ==
[2023-11-27 12:10] VITALS: BP 111/75; PULSE 81; RESP 17; TEMP 36.3; O2SAT 100; BMI 28.2
[2023-11-27 12:25] VITALS: BP 111/64; PULSE 86; RESP 17; O2SAT 100
--- NOTE | 2023-11-27 12:25 | W.ED.DENTAL ---
HPI - Dental/Oral General: Chief complaint: Dental/Oral Stated complaint: mouth pain Time Seen by Provider: 11/27/23 12:24 Source: patient Mode of arrival: ambulatory Limitations: no limitations History of Present Illness: Patient is a 33-year-old female presents to ED today stating she feels off and wants to make sure everything is okay as she has an upcoming trip planned. Patient states several days ago she had a dental procedure performed at [facility] in [place] and had dental extractions. Patient states following the procedure she was placed on hydrocodone and then taper down to Tylenol 3s as well as dexamethasone and augmentin. Patient states she has been taking all of these medications. She states they have been making her nauseous so she has not been taking her normal amitriptyline and venlafaxine. Patient feels like all of these medications are causing her to feel off and simply wants some reassurance. She is not having any specific symptoms at this time. She has not had any vomiting. No diarrhea. She feels like her dental pain is progressively improving. She has not noticed any facial or neck swelling. She is able to swallow and control her secretions normally. No fevers. Onset (ago): day(s) Duration: other (improving) Severity: mild Context: other (recent dental procedure/extractions) Associated symptoms: Denies ear or mastoid pain, fever(s) or odynophagia Treatment prior to arrival: oral analgesic Review of Systems Const: Denies: fever(s), chills, body aches, fatigue or malaise ENMT: Reports: dental pain (recent dental extractions); Denies: throat pain, uvular edema, enlarged tonsils, odynophagia, swelling of lips/tongue, oral sores or ear or mastoid pain Card: Denies: chest pain Resp: Denies: dyspnea GI: Reports: nausea; Denies: abdominal pain or vomiting Musc: Denies: neck pain Neuro: Denies: headache(s) PFS ED PFSH: Medical History No pertinent past medical history neghx: htn,dm,thyroid,dvt/pe PCP: Dr. Sawyer Deal Bipolar disorder Anxiety Endometriosis TIA (transient ischemic attack) Surgical History History of tonsillectomy and adenoidectomy History of reversal of tubal ligation History of tubal ligation Hx of appendectomy History of cholecystectomy Family History Grandfather Cancer skin cancer Hyperlipidemia maternal Hypertension maternal Heart disease maternal Mother Diabetes Hyperlipidemia Stroke Heart disease Father Stroke Heart disease Other CAD (coronary artery disease) Clotting disorder Dementia Lung disease Psychiatric illness Denies family history of Colon cancer Ovarian cancer Chronic kidney disease (CKD) Breast cancer Anesthesia complication Bleeding disorder Uterine cancer Thyroid disease Social History Smoking and tobacco/nicotine status: former use of tobacco/nicotine Alcohol intake: current Alcohol intake frequency: holidays/special occasions only Substance/Drug Use: former Date of last use: 2021 Former substance use details: Methampetamines Physical Exam Const: COMMON NORMALS: no acute distress, patient oriented x3, no limitations, alert and well nourished GENERAL APPEARANCE: cooperative ORIENTATION/CONSCIOUSNESS: Yes awake, Yes oriented to person, Yes oriented to place and Yes oriented to time HENMT: COMMON NORMALS: normocephalic and atraumatic HEAD & SCALP: normal to inspection, normocephalic and atraumatic FACE & SINUS: normal facial exam and sinuses nontender; no erythema and no edema MOUTH: Normal oral and palatal mucosa present and lip normal TEETH & GINGIVA: Yes caries, Yes poor dentition and Yes other (bilateral lower molar extractions; appear to be healing normally/no abscess) THROAT: posterior oropharynx normal and tonsils normal; no uvular edema Neck/C-Spine: COMMON NORMALS: no lymphadenopathy GENERAL: Yes normal visual inspection, No anterior neck swelling and No submandibular swelling Resp: COMMON NORMALS: normal respiratory effort and clear to auscultation bilaterally AUSCULTATION: clear to auscultation bilaterally Cardio: COMMON NORMALS: regular rate and regular rhythm RATE: regular rate RHYTHM: regular rhythm Extremity: GENERAL: Yes normal exam except as noted Neuro: JEROME COMA SCALE: document GCS findings Jerome coma scale eye opening: Spontaneous [place] coma scale verbal response: Orientated Jerome coma scale motor response: Obey commands Jerome coma scale total score: 15 COMMON NORMALS: patient oriented x3 SENSORIUM/ORIENTATION: Yes alert, Yes oriented to person, Yes oriented to place and Yes oriented to time Skin: COMMON NORMALS: no rashes or lesions noted GENERAL SKIN EXAM: no rashes or lesions noted Course Vital Signs: Vital signs: Vital Signs Temperature 97.4 F L 11/27/23 12:10 Pulse Rate 86 11/27/23 12:25 Respiratory Rate 17 11/27/23 12:25 Blood Pressure 111/64 11/27/23 12:25 Pulse Oximetry 100 11/27/23 12:25 Oxygen Delivery Me thod Room Air 11/27/23 12:25 MDM - Dental/Oral Medical Decision Making Patient has no specific complaints today. Symptoms most likely are secondary to recent surgery, opiate pain medications, steroids, antibiotics all while not having her normal venlafaxine and amitriptyline. She has pretty well tapered herself off of the pain medications. Recommend continuing antibiotic course until finished. Recommend taking her other medications as directed. I would anticipate symptoms improving in the next few days as she completes these medication courses. Return to ED precautions given. Medical Records I reviewed the patient's medical records. No radiology studies performed this visit Discharge Plan Discharge Patient Disposition: Home Clinical Impression: Normal exam Condition: Stable Prescriptions: No Action albuterol sulfate 90 mcg/actuation HFA aerosol inhaler 1 inh inhalation QID PRN (Reason: shortness of breath or wheezing) Qty: 8.5 1RF Gummies 400 mcg-35 mg- 25 mg-5 mg tablet,chewable 2 tab PO QAM sumatriptan succinate 25 mg tablet See Rx Instructions PO .COMPLEX Qty: 10 0RF Rx Instructions: take 1 tab at onset of headache; if no relief may repeat 1 tab after at least 2 hrs; max = 4 tabs/24 hr PO amitriptyline 25 mg tablet 25 mg PO .qnightly Qty: 90 1RF ibuprofen 800 mg tablet 800 mg PO Q8H Qty: 90 1RF Rx Instructions: THE pt had taken it before magnesium oxide 500 mg tablet 500 mg PO DAILY Qty: 14 0RF venlafaxine 75 mg capsule,extended release 24hr 75 mg PO DAILY Qty: 30 1RF Tylenol Ex Str Rapid Release 500 mg Tablet 1,000 mg PO Q6H PRN (Reason: Pain) Discharge Orders: Discharge ED (Routine); Ordered 11/27/23 Ordered By: Christine Keith Referrals: Sawyer Deal MD [Primary Care Provider] - Coding Level of Care Code ED Opal Polisher for Janiya Summers
== END 2023-11-27 12:50 | disposition home or self-care (01) ==
PROVIDERS: Emergency Provider Physician Assistant; PCP Family Medicine
DX: Z03.89 Encounter for observation for other suspected diseases and conditions ruled out (principal); Z87.891 Personal history of nicotine dependence; Z86.73 Personal history of transient ischemic attack (TIA), and cerebral infarction without residual deficits
CPT/HCPCS: 99281

== ENCOUNTER 2024-01-25 11:32 | Outpatient (CLI) | payer MEDICAID, SELFPAY | END 2024-01-25 11:33 | disposition home or self-care (01) | LOC: LAB 11:34 | PROVIDERS: PCP Family Medicine; Visit Provider Nurse Practitioner Women's Health | DX: N92.6 Irregular menstruation, unspecified (principal) | CPT/HCPCS: 81025; 84702 ==

== ENCOUNTER 2024-01-30 11:12 | Outpatient (CLI) | payer MEDICAID, SELFPAY | END 2024-01-30 11:13 | disposition home or self-care (01) | LOC: LAB 11:13 | PROVIDERS: PCP Family Medicine; Visit Provider Nurse Practitioner Women's Health | DX: O36.80X0 Pregnancy with inconclusive fetal viability, not applicable or unspecified (principal) | CPT/HCPCS: 36415; 84702 ==

== ENCOUNTER 2024-01-31 09:52 | Emergency (ER) | payer MEDICAID, SELFPAY ==
[2024-01-31 10:19] VITALS: BP 109/73; PULSE 112; RESP 17; TEMP 36.7; O2SAT 97; BMI 26.9
--- NOTE | 2024-01-31 10:37 | US_ITS ---
WS: [id number] EARLY OBSTETRICAL ULTRASOUND (<14 WEEKS). HISTORY: back pain, 6 wks preg; IUP has not been confirmed COMPARISON: None available. Single intrauterine gestational sac is identified. Cardiac activity at 126 BPM. [place]-rump length suki sures 0.4 cm which corresponds to a gestation of 6w1d. Normal-appearing yolk sac and amnion demonstra delisa. No subchorionic hemorrhage. No free fluid. RIGHT ovary contains a corpus luteum of measuring 2.0 x 2.3 x 1.5 cm. Normal vascularity to each ovary. US/US OB transvaginal [id number] IMPRESSION: 1. Single intrauterine gestation of 6w1d with an EDC of 09/24/2024. 2. Normal cardiac activity, 126 bpm.
--- NOTE | 2024-01-31 11:26 | ED_ITS ---
HPI - Back Pain/Injury 2 General: Chief Complaint: Back Pain/Injury Stated Complaint: back pain, Time Seen by Provider: 01/31/24 11:08 Source: patient Mode of arrival: ambulatory Limitations: no limitations History of Present Illness: Patient is a 34-year-old [id number] female at approximately 6 weeks gestation here for complaints of lower back pain. Patient states she has a longstanding history of chronic pains related to her fibromyalgia. She states after learning of her , she was recommended to slowly taper off of her hydrocodone. Patient states today was the first day that she has not had this medication and thinks her back pain most likely is secondary to this however she states I wanted to make sure it was not the baby and want to make sure it was not ectopic as I only have one good tube patient is status post tubal ligation with a reversal. She is not having any pelvic pain or vaginal bleeding. IUP has not been confirmed with ultrasound imaging yet. MD elicited complaint: back pain Onset (ago): day(s) Timing: constant Severity: mild Similar Symptoms Previously: Yes Location: right lower back and left lower back Radiation: none Exacerbating factors: movement Relieving factors: none Associated symptoms: Deny abdominal pain, chills, dysuria, fatigue, fever(s), nausea, urinary urgency or vomiting Work related injury: No Review of Systems 2 Const: Denies: fever(s), chills, body aches, fatigue or malaise Card: Denies: chest pain Resp: Denies: dyspnea GI: Denies: abdominal pain, nausea, vomiting or diarrhea : Denies: flank pain, difficulty voiding, dysuria, urinary frequency, urinary urgency, urinary hesitancy, vaginal bleeding or pelvic pain Musc: Reports: back pain; Denies: neck pain, extremity pain, extremity swelling, joint pain or joint swelling Skin/Breast: Denies: rash Neuro: Denies: headache(s), numbness in extremities, weakness in extremities, sensory changes or dizziness PFSH ED 2 PFSH: Medical History Heavy menstrual bleeding No pertinent past medical history neghx: htn,dm,thyroid,dvt/pe PCP: Dr. Sawyer Deal Bipolar disorder Anxiety TIA (transient ischemic attack) Surgical History History of tonsillectomy and adenoidectomy History of reversal of tubal ligation (~2020) History of tubal ligation (~2013) Hx of appendectomy History of cholecystectomy Family History Grandfather Cancer skin cancer Hyperlipidemia maternal Hypertension maternal Heart disease maternal Mother Diabetes Hyperlipidemia Stroke Heart disease Father Stroke Heart disease Other CAD (coronary artery disease) Clotting disorder Dementia Lung disease Psychiatric illness Denies family history of Colon cancer Ovarian cancer Chronic kidney disease (CKD) Breast cancer Anesthesia complication Bleeding disorder Uterine cancer Thyroid disease Physical Exam 2 Const: COMMON NORMALS: no acute distress, patient oriented x3, no limitations and alert GENERAL APPEARANCE: cooperative ORIENTATION/CONSCIOUSNESS: Yes awake, Yes oriented to person, Yes oriented to place and Yes oriented to time Resp: COMMON NORMALS: normal respiratory effort and clear to auscultation bilaterally AUSCULTATION: clear to auscultation bilaterally Cardio: COMMON NORMALS: regular rate and regular rhythm RATE: regular rate RHYTHM: regular rhythm GI: COMMON NORMALS: Normal to inspection, nondistended, normoactive bowel sounds present, Soft to palpation, non-tender, No hepatosplenomegaly present and no masses PALPATION: Yes Soft to palpation and Yes No hepatosplenomegaly present : COMMON NORMALS: Yes no CVA tenderness BLADDER/KIDNEY EXAM: Yes no CVA tenderness Back/Pelvis: COMMON NORMALS: no CVA tenderness, thoracic and lumbar spine normal to inspection and no thoracic nor lumbar tenderness LUMBAR SPINE/LOWER BACK: Yes paraspinal muscle tenderness and Yes straight leg raise negative bilaterally PELVIS: Yes buttocks normal and No sciatic notch tenderness S ACRUM: no tenderness COCCYX: no tenderness Extremity: GENERAL: Yes normal exam except as noted Neuro: COMMON NORMALS: patient oriented x3, moves all extremities, no focal motor deficits, no sensory deficits noted and gait normal S ENSORIUM/ORIENTATION: Yes alert, Yes oriented to person, Yes oriented to place and Yes oriented to time Skin: COMMON NORMALS: no rashes or lesions noted GENERAL SKIN EXAM: no rashes or lesions noted Course 2 Vital Signs: Vital signs: Vital Signs Temperature 98.0 F 01/31/24 10:19 Pulse Rate 68 01/31/24 12:54 Respiratory Rate 16 01/31/24 12:09 Blood Pressure 112/69 01/31/24 12:54 Pulse Oximetry 99 01/31/24 12:54 Oxygen Delivery Me thod Room Air 01/31/24 12:09 MDM - Back Pain/Injury Medical Decision Making Patient appears in no acute distress. IUP was confirmed via ultrasound. Her blood work and UA are unremarkable. Patient will be instructed to continue to follow-up with her PCP and/or OB. Medical Records I reviewed the patient's medical records. Labs I reviewed the patient's lab results. 01/31/24 12:04 01/31/24 12:04 Radiology Impressions Transvaginal US 01/31/24 10:37 IMPRESSION: 1. Single intrauterine gestation of 6w1d with an EDC of 09/24/2024. 2. Normal cardiac activity, 126 bpm. Laboratory Results WBC 6.59 10^3/uL (3.29-11.43) 01/31/24 12:04 RBC 4.38 10^6/uL (3.85-5.65) 01/31/24 12:04 Hgb 13.10 g/dL (11.27-16.99) 01/31/24 12:04 Hct 38.9 % (36-47) 01/31/24 12:04 MCV 88.8 fl (85-98) 01/31/24 12:04 MCH 29.9 pg (27-33) 01/31/24 12:04 MCHC 33.7 g/dL (30-55) 01/31/24 12:04 RDW 12.6 % (12.1-15.1) 01/31/24 12:04 Plt Count 289 10^3/cmm (157-399) 01/31/24 12:04 MPV 9.7 fL (7.4-10.4) 01/31/24 12:04 Neut % (Auto) 69.3 % 01/31/24 12:04 Lymph % (Auto) 21.9 % 01/31/24 12:04 [place] % (Auto) 6.1 % 01/31/24 12:04 Eos % (Auto) 1.7 % 01/31/24 12:04 Baso % (Auto) 0.8 % 01/31/24 12:04 Neut # (Auto) 4.58 10^3/uL (1.8-7.7) 01/31/24 12:04 Lymph # (Auto) 1.4 10^3/uL (0.8-4.8) 01/31/24 12:04 [place] # (Auto) 0.4 10^3/uL (0.2-0.9) 01/31/24 12:04 Eos # (Auto) 0.1 10^3/uL (0.0-0.8) 01/31/24 12:04 Baso # (Auto) 0.1 10^3/uL (0.0-0.1) 01/31/24 12:04 Nucleated RBC % (auto) 0 % 01/31/24 12:04 Nucleated RBCs # 0.0 /100WBC 01/31/24 12:04 Sodium 135 mmol/L (136-145) L 01/31/24 12:04 Potassium 3.9 mmol/L (3.5-5.1) 01/31/24 12:04 Chloride 102 mmol/L (98-107) 01/31/24 12:04 Carbon Dioxide 23 mmol/L (22-29) 01/31/24 12:04 Anion Gap 13.9 (5-19) 01/31/24 12:04 BUN 6 mg/dL (6-20) 01/31/24 12:04 Creatinine 0.4 mg/dL (0.5-0.9) L 01/31/24 12:04 GFR Calculation 185.0 mL/min (90-130) H 01/31/24 12:04 Glucose 86 mg/dL (65-115) 01/31/24 12:04 Calculated Osmolality 277 mOsm/kg (285-295) L 01/31/24 12:04 Calcium 9.2 mg/dL (8.5-10.5) 01/31/24 12:04 Total Bilirubin 0.2 mg/dL (0.15-1.2) 01/31/24 12:04 AST 38 U/L (0-32) H 01/31/24 12:04 ALT 36 U/L (0-33) H 01/31/24 12:04 Alkaline Phosphatase 107 U/L (35-105) H 01/31/24 12:04 Total Protein 7.2 g/dL (6.6-8.7) 01/31/24 12:04 Albumin 4.2 g/dL (3.5-5.2) 01/31/24 12:04 Globulin 3.0 g/dL (1.3-4.6) 01/31/24 12:04 Urine Color Yellow (Yellow) 01/31/24 11:54 Urine Appearance Clear (CLEAR) 01/31/24 11:54 Urine pH 5 (5-7) 01/31/24 11:54 Ur Specific [place] 1.010 (1.005-1.030) 01/31/24 11:54 Urine Protein Neg (Negative) 01/31/24 11:54 Urine Glucose (UA) Norm (Normal) 01/31/24 11:54 Urine Ketones 1+ (Negative) H 01/31/24 11:54 Urine Blood Neg (Negative) 01/31/24 11:54 Urine Nitrate Negative (Negative) 01/31/24 11:54 Urine Bilirubin Neg (Negative) 01/31/24 11:54 Urine Urobilinogen Norm mg/dL (Negative) 01/31/24 11:54 Ur Leukocyte Esterase Negative (Negative) 01/31/24 11:54 All radiology interpretation(s) finalized by discharge Discharge Plan Discharge Patient Disposition: Home Clinical Impression: Back pain Qualifiers: Back pain location: low back pain Chronicity: unspecified Back pain laterality: unspecified Sciatica presence: without sciatica Qualified Code(s): M54.50 - Low back pain, unspecified Condition: Stable Prescriptions: No Action albuterol sulfate 90 mcg/actuation HFA aerosol inhaler 1 inh inhalation QID PRN (Reason: shortness of breath or wheezing) Qty: 8.5 1RF Gummies 400 mcg-35 mg- 25 mg-5 mg tablet,chewable 2 tab PO QAM hydrocodone-acetaminophen 5-325 mg tablet 2 tab PO DAILY PRN (Reason: Pain) metoclopramide HCl [Reglan] 10 mg tablet 10 mg PO Q6H PRN (Reason: nausea and vomiting) Qty: 60 0RF venlafaxine 75 mg capsule,extended release 24hr 75 mg PO DAILY Qty: 30 1RF acetaminophen [Tylenol Ex Str Rapid Release] 500 mg Tablet 1,000 mg PO Q6H PRN (Reason: Pain) Discharge Orders: Discharge ED (Routine); Ordered 01/31/24 Ordered By: Christine Keith Referrals: Sawyer Deal MD [Primary Care Provider] - Coding Level of Care Code ED Metal Burnisher for Janiya Summers
[2024-01-31 12:09] VITALS: BP 95/60; PULSE 83; RESP 16; O2SAT 98
[2024-01-31 12:20] LABS: Add Urine Microscopic? NO; Charge for UA Resulting for Rev
[2024-01-31 12:29] LABS: Urine Appearance Clear (CLEAR); Urine Color Yellow (Yellow)
[2024-01-31 12:29] LABS: Basophils # 0.1 10^3/uL (0.0-0.1); Basophils % 0.8 %; Eosinophils # 0.1 10^3/uL (0.0-0.8); Eosinophils % 1.7 %; Hematocrit 38.9 % (36-47); Lymphocytes # 1.4 10^3/uL (0.8-4.8); Lymphocytes % 21.9 %; Mean Corpuscular HGB Conc 33.7 g/dL (30-55); Mean Corpuscular Hemoglobin 29.9 pg (27-33); Mean Corpuscular Volume 88.8 fl (85-98); Mean Platelet Volume 9.7 fL (7.4-10.4); Monocytes # 0.4 10^3/uL (0.2-0.9); Monocytes % 6.1 %; Neutrophils # 4.58 10^3/uL (1.8-7.7); Neutrophils % 69.3 %; Nucleated Red Blood Cells % 0 %; Platelet Count 289 10^3/cmm (157-399); Red Blood Count 4.38 10^6/uL (3.85-5.65); Red Cell Distribution Width 12.6 % (12.1-15.1); White Blood Count 6.59 10^3/uL (3.29-11.43)
[2024-01-31 12:30] LABS: Bilirubin Urine Neg (Negative); Blood Urine Neg (Negative); Glucose Urine UA Norm (Normal); Ketones Urine 1+ (Negative); Leukocyte Esterase Urine Negative (Negative); Nitrate Urine Negative (Negative); Protein Urine Neg (Negative); Urobilinogen Urine Norm (Negative); pH Urine 5 (5-7)
[2024-01-31 12:37] LABS: Alanine Aminotransferase 36 U/L (0-33); Albumin Level 4.2 g/dL (3.5-5.2); Alkaline Phosphatase 107 U/L (35-105); Anion Gap 13.9 (5-19); Aspartate Amino Transferase 38 U/L (0-32); Blood Urea Nitrogen 6 mg/dL (6-20); Calcium 9.2 mg/dL (8.5-10.5); Carbon Dioxide 23 mmol/L (22-29); Chloride 102 mmol/L (98-107); Creatinine Clr Calc Pharmacy 192.2955; Glucose 86 mg/dL (65-115); Osmolality Calculated 277 mOsm/kg (285-295); Potassium 3.9 mmol/L (3.5-5.1); Sodium 135 mmol/L (136-145); Total Bilirubin 0.2 mg/dL (0.15-1.2); Total Protein 7.2 g/dL (6.6-8.7)
[2024-01-31 12:54] VITALS: BP 112/69; PULSE 68; O2SAT 99
== END 2024-01-31 12:55 | disposition home or self-care (01) ==
PROVIDERS: Emergency Provider Physician Assistant; PCP Family Medicine
DX: M54.50 Low back pain, unspecified (principal); Z86.73 Personal history of transient ischemic attack (TIA), and cerebral infarction without residual deficits
CPT/HCPCS: 76817; 80053; 81003; 85025; 99284

== ENCOUNTER → 2024-03-06 07:53 | Outpatient (BNVA) | payer MEDICAID, SELFPAY | PROVIDERS: PCP Family Medicine; Visit Provider Nurse Practitioner Women's Health | DX: Z34.90 Encounter for supervision of normal pregnancy, unspecified, unspecified trimester (principal) | CPT/HCPCS: 80307; 81000; 85025; 86592; 86762; 86803; 86850; 86900; 87086; 87340; 87806 ==

== ENCOUNTER → 2024-03-30 13:20 | Outpatient (BNVA) | payer MEDICAID, SELFPAY | PROVIDERS: PCP Family Medicine; Visit Provider Obstetrics & Gynecology | DX: O09.899 Supervision of other high risk pregnancies, unspecified trimester (principal) | CPT/HCPCS: 84315; 87491; 87591 ==

== ENCOUNTER → 2024-04-11 08:22 | Outpatient (BNVA) | payer MEDICAID, SELFPAY | PROVIDERS: PCP Family Medicine; Visit Provider Nurse Practitioner Women's Health | DX: Z34.90 Encounter for supervision of normal pregnancy, unspecified, unspecified trimester (principal) | CPT/HCPCS: 81000; 82105 ==

== ENCOUNTER 2024-04-12 14:03 | Emergency (ER) | payer MEDICAID, SELFPAY ==
[2024-04-12 14:15] VITALS: BP 112/74; PULSE 89; RESP 16; TEMP 36.8; O2SAT 98; BMI 28.8
[2024-04-12 14:52] LABS: Basophils % 0.2 %; Eosinophils # 0.1 10^3/uL (0.0-0.8); Eosinophils % 1.3 %; Hematocrit 35.7 % (36-47); Lymphocytes # 1.7 10^3/uL (0.8-4.8); Mean Corpuscular HGB Conc 33.9 g/dL (30-55); Mean Corpuscular Hemoglobin 30.3 pg (27-33); Mean Corpuscular Volume 89.5 fl (85-98); Mean Platelet Volume 9.2 fL (7.4-10.4); Monocytes # 0.5 10^3/uL (0.2-0.9); Monocytes % 4.9 %; Neutrophils # 7.46 10^3/uL (1.8-7.7); Neutrophils % 76.3 %; Nucleated Red Blood Cells % 0 %; Platelet Count 267 10^3/cmm (157-399); Red Blood Count 3.99 10^6/uL (3.85-5.65); Red Cell Distribution Width 13.1 % (12.1-15.1); White Blood Count 9.78 10^3/uL (3.29-11.43)
[2024-04-12 15:16] LABS: Alanine Aminotransferase 31 U/L (0-33); Albumin Level 3.7 g/dL (3.5-5.2); Alkaline Phosphatase 145 U/L (35-105); Anion Gap 15.8 (5-19); Aspartate Amino Transferase 25 U/L (0-32); Blood Urea Nitrogen 7 mg/dL (6-20); Calcium 8.7 mg/dL (8.5-10.5); Carbon Dioxide 22 mmol/L (22-29); Chloride 103 mmol/L (98-107); Creatinine Clr Calc Pharmacy 199.5248; Globulin 2.9 g/dL (1.3-4.6); Glucose 92 mg/dL (65-115); Osmolality Calculated 282 mOsm/kg (285-295); Potassium 3.8 mmol/L (3.5-5.1); Sodium 137 mmol/L (136-145); Total Bilirubin 0.3 mg/dL (0.15-1.2); Total Protein 6.6 g/dL (6.6-8.7)
[2024-04-12] MEDS: ondansetron 2 mg/ML SDV 2 mL 8 MG IVP (16:24)
[2024-04-12] MEDS: sodium chloride 0.9% 1,000 ML 999 ML IV (16:26)
--- NOTE | 2024-04-12 16:26 | W.ED.NAVMDI ---
HPI - Nausea/Vomiting/Diarrhea General: Chief complaint: Nausea/Vomiting/Diarrhea Stated complaint: N,v, headache 17 weeks preg Time Seen by Provider: 04/12/24 14:36 History of Present Illness: 34-year-old female who is 20 weeks and presents to the emergency room with a headache and nausea and vomiting. She had her teeth pulled a few days back and just finished antibiotics yesterday. She also finished off her pain medications. No abdominal pain. No vaginal bleeding. No vaginal discharge. No fevers. No altered mental status. No focal motor deficits Related Data Home Medications Medication Instructions Recorded Confirmed acetaminophen 500 mg tablet 1,000 mg PO Q6H PRN Pain 01/20/23 04/11/24 calcium carbonate (Tums) 200 mg PO BID 03/06/24 04/11/24 amoxicillin 500 mg tablet 500 mg PO TID 04/11/24 04/11/24 docosahexaenoic acid 200 mg 200 mg PO DAILY 04/11/24 04/11/24 capsule ( DHA) Previous Rx's Medication Instructions Recorded albuterol sulfate 90 mcg/actuation 1 inh inhalation QID PRN shortness 10/18/22 aerosol inhaler of breath or wheezing #8.5 grams metoclopramide HCl 10 mg tablet 10 mg PO Q6H PRN nausea and 01/25/24 (Reglan) vomiting #60 tabs ondansetron 8 mg disintegrating 8 mg PO Q6H #14 tabs 04/12/24 tablet promethazine 25 mg rectal 25 mg IN Q6H PRN nausea and 04/12/24 suppository vomiting #12 ea Allergies Allergy/AdvReac Type Severity Reaction Status Date / Time morphine Allergy Intermediate Unknown Verified 04/11/24 13:07 iodine Allergy ALGY-Rash Verified 04/11/24 13:07 Latex, Natural Rubber Allergy ALGY-Rash Verified 04/11/24 13:07 povidone-iodine Allergy swelling Verified 04/11/24 13:07 [From Betadine] soap [From Betadine] Allergy swelling Verified 04/11/24 13:07 Sulfa (Sulfonamide Allergy ALGY-Rash Verified 04/11/24 13:07 Antibiotics) Review of Systems Narrative: Constitutional symptoms: Negative except as documented in HPI. Skin symptoms: Negative except as documented in HPI. Eye symptoms: Negative except as documented in HPI. ENMT symptoms: Negative except as documented in HPI. Respiratory symptoms: Negative except as documented in HPI. Cardiovascular symptoms: Negative except as documented in HPI. Gastrointestinal symptoms: Negative except as documented in HPI. Genitourinary symptoms: Negative except as documented in HPI. Musculoskeletal symptoms: Negative except as documented in HPI. Neurologic symptoms: Negative except as documented in HPI. Psychiatric symptoms: Negative except as documented in HPI. Endocrine symptoms: Negative except as documented in HPI. PFS ED PFSH: Medical History Heavy menstrual bleeding No pertinent past medical history neghx: htn,dm,thyroid,dvt/pe PCP: Dr. Sawyer Deal Bipolar disorder Anxiety TIA (transient ischemic attack) Surgical History History of tonsillectomy and adenoidectomy History of reversal of tubal ligation (~2020) History of tubal ligation (~2013) Hx of appendectomy History of cholecystectomy Family History Grandfather Cancer skin cancer Hyperlipidemia maternal Hypertension maternal Heart disease maternal Mother Diabetes Hyperlipidemia Stroke Heart disease Father Stroke Heart disease Other CAD (coronary artery disease) Clotting disorder Dementia Lung disease Psychiatric illness Denies family history of Colon cancer Ovarian cancer Chronic kidney disease (CKD) Breast cancer Anesthesia complication Bleeding disorder Uterine cancer Thyroid disease Physical Exam Narrative: EXAM NARRATIVE: General: Alert, no acute distress. Skin: Warm, dry. Head: Normocephalic, atraumatic. Neck: Supple, trachea midline. Eye: Extraocular movements are intact. Ears, nose, mouth and throat: mucosa moist. Edentulous. No signs of infection. Cardiovascular: Regular, Normal peripheral perfusion. Respiratory: Lungs are clear to auscultation, respirations are non-labored, breath sounds are equal, Symmetrical chest wall expansion. Gastrointestinal: Soft, Nontender, Non distended Musculoskeletal: Normal ROM, no deformity. Neurological: Alert and oriented, No focal neurological deficit observed. Psychiatric: Cooperative, appropriate mood & affect. Course Vital Signs: Vital signs: Vital Signs Temperature 98.2 F 04/12/24 14:15 Pulse Rate 84 04/12/24 16:27 Respiratory Rate 16 04/12/24 14:15 Blood Pressure 103/68 04/12/24 16:27 Pulse Oximetry 98 04/12/24 16:27 Oxygen Delivery Me thod Room Air 04/12/24 16:27 MDM - Nausea/Vomiting/Diarrhea Medical Decision Making Medical decision making: Differential diagnosis including but not limited to and based on the above HPI, review of systems and physical exam: Nausea and vomiting and a 17-week female. Concern for UTI. May just be something viral. She also has a headache. Orders placed to evaluate differential diagnosis based on the above differential, HPI and physical exam Lab Review: Laboratory results were reviewed and interpreted by myself the emergency room physician. Lab work is unremarkable. No leukocytosis. No anemia. No renal failure. No urinary tract infection. I reviewed the patient's medical record. Reexamination: Patient remained stable. No increased work of breathing. No altered mental status. No focal motor deficits. heart tones as measured by nurse were 138. Assessment and plan: Nausea and vomiting Dehydration . -IV fluids and IV Zofran in the emergency room - Discharged home - Discussed plan with patient. Answered any questions. - Evaluation and treatment of this problem were appropriate in the emergency setting. Lab Data 04/12/24 14:45 04/12/24 14:45 Laboratory Results WBC 9.78 10^3/uL (3.29-11.43) 04/12/24 14:45 RBC 3.99 10^6/uL (3.85-5.65) 04/12/24 14:45 Hgb 12.10 g/dL (11.27-16.99) 04/12/24 14:45 Hct 35.7 % (36-47) L 04/12/24 14:45 MCV 89.5 fl (85-98) 04/12/24 14:45 MCH 30.3 pg (27-33) 04/12/24 14:45 MCHC 33.9 g/dL (30-55) 04/12/24 14:45 RDW 13.1 % (12.1-15.1) 04/12/24 14:45 Plt Count 267 10^3/cmm (157-399) 04/12/24 14:45 MPV 9.2 fL (7.4-10.4) 04/12/24 14:45 Neut % (Auto) 76.3 % 04/12/24 14:45 Lymph % (Auto) 17.0 % 04/12/24 14:45 Sandoval % (Auto) 4.9 % 04/12/24 14:45 Eos % (Auto) 1.3 % 04/12/24 14:45 Baso % (Auto) 0.2 % 04/12/24 14:45 Neut # (Auto) 7.46 10^3/uL (1.8-7.7) 04/12/24 14:45 Lymph # (Auto) 1.7 10^3/uL (0.8-4.8) 04/12/24 14:45 Sandoval # (Auto) 0.5 10^3/uL (0.2-0.9) 04/12/24 14:45 Eos # (Auto) 0.1 10^3/uL (0.0-0.8) 04/12/24 14:45 Baso # (Auto) 0.0 10^3/uL (0.0-0.1) 04/12/24 14:45 Nucleated RBC % (auto) 0 % 04/12/24 14:45 Nucleated RBCs # 0.0 /100WBC 04/12/24 14:45 Sodium 137 mmol/L (136-145) 04/12/24 14:45 Potassium 3.8 mmol/L (3.5-5.1) 04/12/24 14:45 Chloride 103 mmol/L (98-107) 04/12/24 14:45 Carbon Dioxide 22 mmol/L (22-29) 04/12/24 14:45 Anion Gap 15.8 (5-19) 04/12/24 14:45 BUN 7 mg/dL (6-20) 04/12/24 14:45 Creatinine 0.4 mg/dL (0.5-0.9) L 04/12/24 14:45 GFR Calculation 185.0 mL/min (90-130) H 04/12/24 14:45 Glucose 92 mg/dL (65-115) 04/12/24 14:45 Calculated Osmolality 282 mOsm/kg (285-295) L 04/12/24 14:45 Calcium 8.7 mg/dL (8.5-10.5) 04/12/24 14:45 Total Bilirubin 0.3 mg/dL (0.15-1.2) 04/12/24 14:45 AST 25 U/L (0-32) 04/12/24 14:45 ALT 31 U/L (0-33) 04/12/24 14:45 Alkaline Phosphatase 145 U/L (35-105) H 04/12/24 14:45 Total Protein 6.6 g/dL (6.6-8.7) 04/12/24 14:45 Albumin 3.7 g/dL (3.5-5.2) 04/12/24 14:45 Globulin 2.9 g/dL (1.3-4.6) 04/12/24 14:45 Urine Color Yellow (Yellow) 04/12/24 16:28 Urine Appearance Clear (CLEAR) 04/12/24 16:28 Urine pH 5.5 (5-7) 04/12/24 16:28 Ur Specific [place] 1.011 (1.005-1.030) 04/12/24 16:28 Urine Protein Negative (Negative) 04/12/24 16:28 Urine Glucose (UA) Negative (Normal) 04/12/24 16:28 Urine Ketones 1+ (Negative) H 04/12/24 16:28 Urine Blood Negative (Negative) 04/12/24 16:28 Urine Nitrate Negative (Negative) 04/12/24 16:28 Urine Bilirubin Negative (Negative) 04/12/24 16:28 Urine Urobilinogen 1.0 mg/dL (Negative) 04/12/24 16:28 Ur Leukocyte Esterase 1+ (Negative) A 04/12/24 16:28 Urine RBC 0-2 /hpf (0-2) 04/12/24 16:28 Urine WBC 6-10 /hpf (0-5) 04/12/24 16:28 Ur Squamous Epith Cells 6-10 /hpf (0-5) 04/12/24 16:28 Amorphous Sediment Not Reportable 04/12/24 16:28 Urine Bacteria None seen /hpf (NONE) 04/12/24 16:28 Hyaline Casts 0.40 /lpf 04/12/24 16:28 No radiology studies performed this visit Discharge Plan Discharge Patient Disposition: Home Clinical Impression: , Vomiting, Headache, Dehydration Condition: Stable Prescriptions: New promethazine 25 mg suppository 25 mg IN Q6H PRN (Reason: nausea and vomiting) Qty: 12 0RF ondansetron 8 mg tablet,disintegrating 8 mg PO Q6H Qty: 14 0RF Rx Instructions: Take 1/2-1 tab every 6 hours as needed for nausea and vomiting No Action albuterol sulfate 90 mcg/actuation HFA aerosol inhaler 1 inh inhalation QID PRN (Reason: shortness of breath or wheezing) Qty: 8.5 1RF metoclopramide HCl [Reglan] 10 mg tablet 10 mg PO Q6H PRN (Reason: nausea and vomiting) Qty: 60 0RF calcium carbonate [Tums] 200 mg calcium (500 mg) tablet,chewable 200 mg PO BID DHA 200 mg capsule 200 mg PO DAILY amoxicillin 500 mg tablet 500 mg PO TID acetaminophen [Tylenol Ex Str Rapid Release] 500 mg Tablet 1,000 mg PO Q6H PRN (Reason: Pain) Discharge Orders: Discharge ED (Routine); Ordered 04/12/24 Ordered By: Jackelyn Vee Referrals: aSwyer Deal MD [Primary Care Provider] - Discharge Diet: Advance as tolerated Discharge Activity: Increase activity as tolerated Patient Instructions: Nausea and Vomiting in (ED) Activity Restrictions/Additional Instructions: Thank you for choosing [facility] for your healthcare needs today. Please realize this is an emergency room and that we are providing you with a medical screening exam and this may not be complete and all inclusive of all the testing and or work up that you may need to determine your ailment or severity of your illness. You have been screened and evaluated and felt safe for discharge. Health conditions do change or evolve sometimes and as such it is important that you follow up with your Primary Doctor to be re checked, 3-5 days is a general good time frame for follow up. You are always welcome to return to the ED for re assessment if your symptoms are worsening or you have new concerns Coding Level of Care Code ED Inclinometer Tester for Janiya Summers
[2024-04-12 16:27] VITALS: BP 103/68; PULSE 84; O2SAT 98
[2024-04-12 16:34] LABS: Bilirubin Urine Negative (Negative); Blood Urine Negative (Negative); Glucose Urine UA Negative (Normal); Ketones Urine 1+ (Negative); Leukocyte Esterase Urine 1+ (Negative); Nitrate Urine Negative (Negative); Protein Urine Negative (Negative); Specific Gravity, Urine 1.011 (1.005-1.030); Urine Appearance Clear (CLEAR); Urine Color Yellow (Yellow); pH Urine 5.5 (5-7)
[2024-04-12 16:39] LABS: Bacteria Urine None Seen /hpf; RBC Urine 0-2 /hpf (0-2)
[2024-04-12 17:52] VITALS: BP 113/59; PULSE 88; O2SAT 99
== END 2024-04-12 17:45 | disposition home or self-care (01) ==
PROVIDERS: Emergency Provider Emergency Medicine; PCP Family Medicine
DX: O26.892 Other specified pregnancy related conditions, second trimester (principal); O21.9 Vomiting of pregnancy, unspecified; R51.9 Headache, unspecified; E86.0 Dehydration; Z3A.17 17 weeks gestation of pregnancy; Z86.73 Personal history of transient ischemic attack (TIA), and cerebral infarction without residual deficits
CPT/HCPCS: 36415; 80053; 81001; 85025; 96361; 96374; 99284; J2405; J7030

== ENCOUNTER 2024-04-26 15:38 | Emergency (ER) | payer MEDICAID, SELFPAY ==
--- NOTE | 2024-04-26 15:45 | XR_ITS ---
WS: [id number] Examination: XR ankle RT min 3V* [id number] Reason for Exam: injury Date: 04/26/2024 Comparison: None. Findings: The bone density and the ankle mortise are intact. There is no displaced fracture or dislocation. Lateral soft tissue swelling is present. XR/XR ankle RT min 3V* [id number] Impression: There is dominant lateral soft tissue swelling without displaced fracture.
[2024-04-26 15:53] VITALS: BP 114/53; PULSE 114; RESP 17; TEMP 36.6; O2SAT 98; BMI 27.1
--- NOTE | 2024-04-26 16:20 | ED_ITS ---
HPI - Fall General: Chief Complaint: Fall Stated Complaint: RT ankle injury Time Seen by Provider: 04/26/24 15:58 Source: patient Mode of arrival: ambulatory Limitations: no limitations History of Present Illness: 34-year-old female states that she had s tepped off a ledge just an hour before arrival and rolled her right ankle. She states she has right lateral ankle pain she rates a 9 out of 10 states she is unable to bear any weight on the ankle. Denies any other injury she is 19 weeks . She denies hitting her abdomen denies any vaginal bleeding denies any head injuries. She denies any knee pain Associated symptoms-after fall: Denies abdominal pain, chest pain, headache(s) or neck pain Related Data Home Medications Medication Instructions Recorded Confirmed acetaminophen 500 mg tablet 1,000 mg PO Q6H PRN Pain 01/20/23 04/11/24 calcium carbonate (Tums) 200 mg PO BID 03/06/24 04/11/24 amoxicillin 500 mg tablet 500 mg PO TID 04/11/24 04/11/24 docosahexaenoic acid 200 mg 200 mg PO DAILY 04/11/24 04/11/24 capsule ( DHA) Previous Rx's Medication Instructions Recorded albuterol sulfate 90 mcg/actuation 1 inh inhalation QID PRN shortness 10/18/22 aerosol inhaler of breath or wheezing #8.5 grams metoclopramide HCl 10 mg tablet 10 mg PO Q6H PRN nausea and 01/25/24 (Reglan) vomiting #60 tabs ondansetron 8 mg disintegrating 8 mg PO Q6H #14 tabs 04/12/24 tablet promethazine 25 mg rectal 25 mg NV Q6H PRN nausea and 04/12/24 suppository vomiting #12 ea Allergies Allergy/AdvReac Type Severity Reaction Status Date / Time morphine Allergy Intermediate Unknown Verified 04/11/24 13:07 iodine Allergy ALGY-Rash Verified 04/11/24 13:07 Latex, Natural Rubber Allergy ALGY-Rash Verified 04/11/24 13:07 povidone-iodine Allergy swelling Verified 04/11/24 13:07 [From Betadine] soap [From Betadine] Allergy swelling Verified 04/11/24 13:07 Sulfa (Sulfonamide Allergy ALGY-Rash Verified 04/11/24 13:07 Antibiotics) Review of Systems Const: Denies: fever(s), chills, body aches or change in appetite ENMT: Denies: throat pain or dental pain Card: Denies: chest pain Resp: Denies: dyspnea GI: Denies: abdominal pain, nausea, vomiting or diarrhea Musc: Reports: extremity pain; Denies: neck pain or back pain Skin/Breast: Denies: rash Neuro: Denies: headache(s) PFSH ED PFSH: Medical History Heavy menstrual bleeding No pertinent past medical history neghx: htn,dm,thyroid,dvt/pe PCP: Dr. Sawyer Deal Bipolar disorder Anxiety TIA (transient ischemic attack) Surgical History History of tonsillectomy and adenoidectomy History of reversal of tubal ligation (~2020) History of tubal ligation (~2013) Hx of appendectomy History of cholecystectomy Family History Grandfather Cancer skin cancer Hyperlipidemia maternal Hypertension maternal Heart disease maternal Mother Diabetes Hyperlipidemia Stroke Heart disease Father Stroke Heart disease Other CAD (coronary artery disease) Clotting disorder Dementia Lung disease Psychiatric illness Denies family history of Colon cancer Ovarian cancer Chronic kidney disease (CKD) Breast cancer Anesthesia complication Bleeding disorder Uterine cancer Thyroid disease Physical Exam Const: COMMON NORMALS: no acute distress, patient oriented x3 and healthy appearing HENMT: COMMON NORMALS: normocephalic and atraumatic HEAD & SCALP: normocephalic and atraumatic Eye: COMMON NORMALS: conjunctivae normal CONJUNCTIVA: Yes conjunctivae normal Neck/C-Spine: COMMON NORMALS: full ROM and supple Chest: COMMONS NORMALS: normal inspection of the chest Resp: COMMON NORMALS: normal respiratory effort Extremity: COMMON NORMALS: full ROM NARRATIVE EXTREMITY EXAM: Tenderness swelling over right lateral ankle no knee tenderness Neuro: COMMON NORMALS: patient oriented x3, moves all extremities and no focal motor deficits Psych: COMMON NORMALS: mental status grossly normal, Normal thought process present and cooperative THOUGHT PROCESS: Normal thought process present Skin: COMMON NORMALS: no rashes or lesions noted and no wounds GENERAL SKIN EXAM: no rashes or lesions noted Course Vital Signs: Vital signs: Vital Signs Temperature 98 F 04/26/24 15:53 Pulse Rate 114 H 04/26/24 15:53 Respiratory Rate 17 04/26/24 15:53 Blood Pressure 114/53 04/26/24 15:53 Pulse Oximetry 98 04/26/24 15:53 Oxygen Delivery Me thod Room Air 04/26/24 15:53 MDM - Fall Medical Decision Making Patient presents with an ankle sprain x-ray shows no fracture will place in a splint and crutches as she does have swelling and pain we will get her follow-up with podiatry no other injuries noted Medical Records I reviewed the patient's medical records. Lab Data Radiology Impressions Ankle X-Ray 04/26/24 15:45 Impression: There is dominant lateral soft tissue swelling without displaced fracture. All radiology interpretation(s) finalized by discharge Discharge Plan Discharge Patient Disposition: Home Clinical Impression: Right ankle sprain Condition: Stable Prescriptions: No Action albuterol sulfate 90 mcg/actuation HFA aerosol inhaler 1 inh inhalation QID PRN (Reason: shortness of breath or wheezing) Qty: 8.5 1RF metoclopramide HCl [Reglan] 10 mg tablet 10 mg PO Q6H PRN (Reason: nausea and vomiting) Qty: 60 0RF calcium carbonate [Tums] 200 mg calcium (500 mg) tablet,chewable 200 mg PO BID DHA 200 mg capsule 200 mg PO DAILY amoxicillin 500 mg tablet 500 mg PO TID acetaminophen [Tylenol Ex Str Rapid Release] 500 mg Tablet 1,000 mg PO Q6H PRN (Reason: Pain) promethazine 25 mg suppository 25 mg NV Q6H PRN (Reason: nausea and vomiting) Qty: 12 0RF ondansetron 8 mg tablet,disintegrating 8 mg PO Q6H Qty: 14 0RF Rx Instructions: Take 1/2-1 tab every 6 hours as needed for nausea and vomiting Discharge Orders: Discharge ED (Routine); Ordered 04/26/24 Ordered By: Messi Root Referrals: Arash Cleary DPM [Physician] - 1-3 days Sawyer Deal MD [Primary Care Provider] - Discharge Diet: Advance as tolerated Discharge Activity: Resume usual activity Patient Instructions: Ankle Sprain (ED) Coding Level of Care Code ED In Service Coordinator for Janiya Summers
[2024-04-26] MEDS: HYDROcodone-acetaminophen 5-325 mg Tablet 1 TAB PO (16:41)
--- NOTE | 2024-04-26 16:46 | PC.NURSE ---
heart tones 145.
--- NOTE | 2024-04-26 17:40 | DCPLANNER ---
messaged podiatry for er f/u
[2024-04-26 17:50] VITALS: BP 108/73; PULSE 92; O2SAT 98
== END 2024-04-26 17:25 | disposition home or self-care (01) ==
PROVIDERS: Emergency Provider Emergency Medicine; PCP Family Medicine
DX: O9A.212 Injury, poisoning and certain other consequences of external causes complicating pregnancy, second trimester (principal); S93.401A Sprain of unspecified ligament of right ankle, initial encounter; Z86.73 Personal history of transient ischemic attack (TIA), and cerebral infarction without residual deficits; Z3A.19 19 weeks gestation of pregnancy; X50.1XXA Overexertion from prolonged static or awkward postures, initial encounter
CPT/HCPCS: 29515; 73610; 99283; E0114

== ENCOUNTER → 2024-05-08 09:14 | Outpatient (BNVA) | payer MEDICAID, SELFPAY | PROVIDERS: PCP Family Medicine; Visit Provider Obstetrics & Gynecology | DX: Z36.2 Encounter for other antenatal screening follow-up (principal); Z3A.21 21 weeks gestation of pregnancy | CPT/HCPCS: 76805 ==

== ENCOUNTER 2024-05-17 10:04 | Outpatient (CLI) | payer MEDICAID, SELFPAY ==
[2024-05-17 10:10] VITALS: BMI 30.7
[2024-05-17 10:19] VITALS: BP 121/76; PULSE 100
[2024-05-17 10:28] LABS: Bilirubin Urine Negative (Negative); Blood Urine Negative (Negative); Glucose Urine UA Negative (Normal); Ketones Urine Negative (Negative); Leukocyte Esterase Urine 2+ (Negative); Nitrate Urine Negative (Negative); Protein Urine Negative (Negative); Specific Gravity, Urine 1.006 (1.005-1.030); Urine Appearance Cloudy (CLEAR); Urine Color Yellow (Yellow); Urobilinogen Urine 0.2 mg/dL (Negative)
[2024-05-17 10:30] LABS: Bacteria Urine None Seen /hpf; RBC Urine 0-2 /hpf (0-2); Squamous Epithelial Cell Urine 0-5 /hpf (0-5)
[2024-05-17 10:41] VITALS: BP 107/67; PULSE 93
[2024-05-17 10:43] LABS: Add Urine Culture? No
[2024-05-17 11:00] VITALS: BP 113/69; PULSE 87
[2024-05-17 11:20] VITALS: BP 122/70; PULSE 89
[2024-05-17 11:50] VITALS: BP 122/70; PULSE 89; RESP 16
== END 2024-05-17 11:45 | disposition home or self-care (01) ==
LOC: OPOB 10:04 → OBGYN 10:08
PROVIDERS: PCP Family Medicine; Visit Provider Obstetrics & Gynecology
DX: O26.899 Other specified pregnancy related conditions, unspecified trimester (principal); Z3A.00 Weeks of gestation of pregnancy not specified; R10.9 Unspecified abdominal pain; M54.9 Dorsalgia, unspecified
CPT/HCPCS: 59025; 81001; 99211

== ENCOUNTER → 2024-05-24 09:45 | Outpatient (BNVA) | payer MEDICAID, SELFPAY | PROVIDERS: PCP Family Medicine; Visit Provider Nurse Practitioner Women's Health | DX: O09.899 Supervision of other high risk pregnancies, unspecified trimester (principal) | CPT/HCPCS: 81000 ==

== ENCOUNTER → 2024-05-29 09:50 | Outpatient (BNVA) | payer MEDICAID, SELFPAY | PROVIDERS: PCP Family Medicine | DX: R51.9 Headache, unspecified (principal) | CPT/HCPCS: 87426 ==

== ENCOUNTER → 2024-06-05 11:05 | Outpatient (BNVA) | payer MEDICAID, SELFPAY | PROVIDERS: PCP Family Medicine; Visit Provider Obstetrics & Gynecology | DX: Z34.90 Encounter for supervision of normal pregnancy, unspecified, unspecified trimester (principal); Z36.2 Encounter for other antenatal screening follow-up; Z3A.25 25 weeks gestation of pregnancy | CPT/HCPCS: 76816; 82950 ==

== ENCOUNTER 2024-06-20 21:39 | Outpatient (CLI) | payer MEDICAID, SELFPAY ==
[2024-06-20] VITALS (13 sets, daily range): BP systolic 105–135; BP diastolic 68–75; PULSE 75–111; O2SAT 98–99; BMI 31.9
[2024-06-20 22:43] LABS: Bilirubin Urine Negative (Negative); Blood Urine Negative (Negative); Glucose Urine UA Negative (Normal); Ketones Urine Negative (Negative); Leukocyte Esterase Urine 2+ (Negative); Nitrate Urine Negative (Negative); Protein Urine Negative (Negative); Specific Gravity, Urine 1.003 (1.005-1.030); Urine Appearance Clear (CLEAR); Urine Color Yellow (Yellow); Urobilinogen Urine 0.2 mg/dL (Negative)
[2024-06-20 22:53] LABS: Add Urine Culture? No; Add Urine Microscopic? YES; Bacteria Urine TRACE /hpf; RBC Urine 0-4 /hpf (0-2)
[2024-06-21] VITALS (11 sets, daily range): BP systolic 96–119; BP diastolic 53–79; PULSE 84–102; TEMP 36.6
[2024-06-21 00:57] LABS: Amphetamines Screen Urine Negative (Negative); Barbiturates Screen Urine Negative (Negative); Benzodiazepines Screen Urine Negative (Negative); Cocaine Screen Urine Negative (Negative); Opiate Screen Urine Negative (Negative); PCP Screen Urine Negative (Negative); THC Screen Urine Negative (Negative)
[2024-06-21] MEDS: NIFEdipine 10 mg Capsule PO (01:09)
== END 2024-06-21 02:16 | disposition home or self-care (01) ==
LOC: OPOB 21:43 → OBGYN 21:43
PROVIDERS: PCP Family Medicine; Visit Provider Obstetrics & Gynecology
DX: O26.899 Other specified pregnancy related conditions, unspecified trimester (principal); Z3A.00 Weeks of gestation of pregnancy not specified; R10.9 Unspecified abdominal pain
CPT/HCPCS: 80306; 81001; 99211

== ENCOUNTER → 2024-06-25 08:36 | Outpatient (BNVA) | payer MEDICAID, SELFPAY | PROVIDERS: PCP Family Medicine; Visit Provider Obstetrics & Gynecology | DX: O09.899 Supervision of other high risk pregnancies, unspecified trimester (principal); O60.00 Preterm labor without delivery, unspecified trimester; Z3A.00 Weeks of gestation of pregnancy not specified | CPT/HCPCS: 76815; 81000 ==

== ENCOUNTER → 2024-07-09 13:06 | Outpatient (BNVA) | payer MEDICAID, SELFPAY | PROVIDERS: PCP Family Medicine; Visit Provider Family Medicine | DX: Z36.2 Encounter for other antenatal screening follow-up; O09.899 Supervision of other high risk pregnancies, unspecified trimester; J02.9 Acute pharyngitis, unspecified; J06.9 Acute upper respiratory infection, unspecified; J40 Bronchitis, not specified as acute or chronic | CPT/HCPCS: 87071; 87400; 87426; 87880 ==

== ENCOUNTER → 2024-07-12 15:23 | Outpatient (BNVA) | payer MEDICAID, SELFPAY | PROVIDERS: PCP Family Medicine; Visit Provider Obstetrics & Gynecology | DX: O09.899 Supervision of other high risk pregnancies, unspecified trimester (principal); Z36.2 Encounter for other antenatal screening follow-up | CPT/HCPCS: 84315; 85025 ==

== ENCOUNTER 2024-07-27 13:59 | Outpatient (CLI) | payer MEDICAID, SELFPAY ==
[2024-07-27] VITALS (26 sets, daily range): BP systolic 102–128; BP diastolic 55–73; PULSE 81–139; O2SAT 98–100; BMI 32.3
[2024-07-27] MEDS: NIFEdipine 10 mg Capsule 30 MG PO (16:06)
[2024-07-27] MEDS: terbutaline 1 mg/mL INJ 0.25 MG SUBCUT (17:11)
[2024-07-27 18:15] LABS: Bilirubin Urine Negative (Negative); Blood Urine Negative (Negative); Glucose Urine UA Negative (Normal); Ketones Urine Negative (Negative); Leukocyte Esterase Urine 3+ (Negative); Nitrate Urine Negative (Negative); Protein Urine Negative (Negative); Specific Gravity, Urine 1.003 (1.005-1.030); Urine Appearance Clear (CLEAR); Urine Color Yellow (Yellow); Urobilinogen Urine 0.2 mg/dL (Negative)
[2024-07-27 18:20] LABS: Bacteria Urine None Seen /hpf; Hyaline Casts Urine 0-4 /lpf; RBC Urine 0-2 /hpf (0-2); WBC Urine 21-50 /hpf (0-5)
[2024-07-27 18:23] LABS: Add Urine Culture? Yes
== END 2024-07-27 18:58 | disposition home or self-care (01) ==
LOC: OPOB 14:04 → OBGYN 14:05
PROVIDERS: PCP Family Medicine; Visit Provider Obstetrics & Gynecology
DX: O26.899 Other specified pregnancy related conditions, unspecified trimester (principal); Z3A.00 Weeks of gestation of pregnancy not specified; R10.2 Pelvic and perineal pain; R10.9 Unspecified abdominal pain
CPT/HCPCS: 59025; 81000; 81001; 87086; 96372; 99211; J3105

== ENCOUNTER 2024-08-01 15:45 | Outpatient (CLI) | payer MEDICAID, SELFPAY ==
[2024-08-01] VITALS (30 sets, daily range): BP systolic 88–133; BP diastolic 53–82; PULSE 90–121; RESP 16; BMI 33.2
[2024-08-01] MEDS: lactated ringers 1,000 ML 999 ML IV (17:31)
[2024-08-01] MEDS: NIFEdipine 10 mg Capsule 30 MG PO ×2 (17:32→21:10)
[2024-08-01] MEDS: acetaminophen 500 mg Tablet PO (17:32)
[2024-08-01] MEDS: terbutaline 1 mg/mL INJ 0.25 MG SUBCUT (19:33)
[2024-08-01] MEDS: betamethasone susp 6 mg/mL 1 mL (per mL) 12 MG IM (21:10)
[2024-08-02] VITALS (41 sets, daily range): BP systolic 81–103; BP diastolic 48–57; PULSE 88–116; RESP 15; TEMP 36.6; O2SAT 94–100; BMI 33.2
--- NOTE | 2024-08-02 03:18 | PC.NURSE ---
This nurse went in patient room at 0300 to preform cervical exam. patient requests at this time to not have cervical exam until the 5 am check, due to not having made change since arrival to unit. This nurse educated of doctors orders and reported that she would be back at 5 am to preform cervical exam.
== END 2024-08-02 08:38 | disposition home or self-care (01) ==
LOC: OPOB 15:46 → OBGYN 15:47
PROVIDERS: PCP Family Medicine; Visit Provider Obstetrics & Gynecology
DX: O26.899 Other specified pregnancy related conditions, unspecified trimester (principal); Z3A.00 Weeks of gestation of pregnancy not specified; R10.9 Unspecified abdominal pain
CPT/HCPCS: 59025; 81000; 96372; 99211; J0702; J3105; J7120

== ENCOUNTER 2024-08-02 20:34 | Outpatient (CLI) | payer MEDICAID, SELFPAY ==
[2024-08-02] VITALS (7 sets, daily range): BP systolic 104–105; BP diastolic 59–62; PULSE 94–99; TEMP 36.2; O2SAT 97
[2024-08-02] MEDS: betamethasone susp 6 mg/mL 1 mL (per mL) 12 MG IM (20:49)
--- NOTE | 2024-08-02 21:36 | PC.NURSE ---
Patient arrived to unit at 2028for second dose of betamethasone. patient was seen in triage last night 08/01/24 and was given first dose.
== END 2024-08-02 21:12 | disposition home or self-care (01) ==
LOC: OPOB 20:35 → OBGYN 20:36
PROVIDERS: PCP Family Medicine; Visit Provider Obstetrics & Gynecology
DX: O26.899 Other specified pregnancy related conditions, unspecified trimester (principal); Z3A.00 Weeks of gestation of pregnancy not specified
CPT/HCPCS: 96372; J0702

== ENCOUNTER 2024-08-03 20:11 | Outpatient (CLI) | payer MEDICAID, SELFPAY ==
[2024-08-03] VITALS (28 sets, daily range): BP systolic 95–154; BP diastolic 51–88; PULSE 98–164; O2SAT 93–98; BMI 33.0
[2024-08-03] MEDS: NIFEdipine 10 mg Capsule 30 MG PO (21:15)
[2024-08-03 21:18] LABS: Bilirubin Urine Negative (Negative); Blood Urine Negative (Negative); Glucose Urine UA Negative (Normal); Ketones Urine Negative (Negative); Leukocyte Esterase Urine 3+ (Negative); Nitrate Urine Negative (Negative); Protein Urine Negative (Negative); Specific Gravity, Urine 1.003 (1.005-1.030); Urine Appearance Clear (CLEAR); Urine Color Yellow (Yellow); Urobilinogen Urine 0.2 mg/dL (Negative); pH Urine 6.5 (5-7)
[2024-08-03 21:19] LABS: Nitrazine Paper, PH Negative
[2024-08-03 21:22] LABS: Bacteria Urine 1+ /hpf; Hyaline Casts Urine 0.81 /lpf; RBC Urine 0-2 /hpf (0-2); Squamous Epithelial Cell Urine 0-5 /hpf (0-5); WBC Urine 21-50 /hpf (0-5)
[2024-08-03 21:25] LABS: Add Urine Culture? Yes
[2024-08-03] MEDS: lactated ringers 1,000 ML 999 ML IV (21:25)
[2024-08-03] MEDS: terbutaline 1 mg/mL INJ 0.25 MG SUBCUT (21:57)
[2024-08-03] MEDS: ceFAZolin 2,000 mg SDV 2000 MG IVP (23:27)
[2024-08-04] VITALS (10 sets, daily range): BP systolic 102–117; BP diastolic 52–64; PULSE 98–125; RESP 17; TEMP 35.7–36.6; O2SAT 97
--- NOTE | 2024-08-04 02:20 | P.TNLD_ITS ---
OB L&D Triage Visit Information: Date of evaluation: 08/04/24 Comments/Additional reason(s) for visit: 34-year-old female G6, P4 at 33.1 weeks gestation with JESSE 09/20/2024 seen on labor and delivery in triage with complaints of possible leakage of fluid and discharge on 08/03/2024. Nursing staff states patient has been in multiple times for contractions last treated with IV fluid and tocolytics, with steroids being given 1 week ago. Upon patient's presentation to labor and delivery she was monitored with EFM and noted to be irena every 1 to 4 minutes, was treated with IV fluid bolus of 300 mL, followed by terbutaline 0.25 mg subcu, and Procardia 30 mg p.o. Her nitrazine testing was negative. Contractions spaced to q. 20 to 30 minutes and were no longer palpable by patient. Patient cervix exam by nursing staff was Dimple to 1cm/TH., And remain unchanged. Patient states that she had multiple visits during her previous pregnancies , but all were delivered after 37 weeks. She states her last delivery was induced at 39 weeks. UA revealed positive leuk esterase with 21-50 WBCs indicating a UTI. Patient states she has had bronchitis and was treated with ampicillin, then later was diagnosed with a UTI for the last several weeks has been treated with IV ampicillin, cephalexin and Macrobid without resolution. Patient was treated today with IV Ancef 2 g. Will not treat with Bactrim due to patient allergic history. 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 Evaluation: Baseline heart rate: 130 monitor accelerations: Present 15x15 monitor decelerations: None Cervical dilation (cm): 1 Cervical effacement (%): 20 station: -4 Laboratory results: Laboratory Tests 08/03/24 08/03/24 20:26 21:11 Urine Color Yellow Urine Appearance Clear Urine pH 6.5 Ur Specific Gravit y 1.003 L Urine Protein Negative Urine Glucose (UA) Negative Urine Ketones Negative Urine Blood Negative Urine Nitrate Negative Urine Bilirubin Negative Urine Urobilinogen 0.2 Ur Leukocyte Cornelia ase 3+ A Urine RBC 0-2 Urine WBC 21-50 H Ur Squamous Epith Cells 0-5 Amorphous Sediment Not Reportable Urine Bacteria 1+ H Hyaline Casts 0.81 Fluid pH (paper) Negative Vital signs: Vital Signs - 24 hr 08/03/24 20:23 08/03/24 20:38 08/03/24 20:53 Temperature Pulse Rate 103 H 98 101 H Respiratory Rate Blood Pressure 124/67 109/58 117/59 Pulse Oximetry 08/03/24 21:25 08/03/24 21:39 08/03/24 21:53 Temperature Pulse Rate 109 H 126 H 126 H Respiratory Rate Blood Pressure 127/70 131/88 137/80 Pulse Oximetry 08/03/24 22:23 08/03/24 22:38 08/03/24 22:48 Temperature Pulse Rate 164 H 144 H 127 H Respiratory Rate Blood Pressure 154/74 126/80 Pulse Oximetry 98 08/03/24 22:53 08/03/24 22:58 08/03/24 23:03 Temperature Pulse Rate 144 H 126 H 132 H Respiratory Rate Blood Pressure 124/70 Pulse Oximetry 95 95 96 08/03/24 23:08 08/03/24 23:09 08/03/24 23:13 Temperature Pulse Rate 123 H 123 H 124 H Respiratory Rate Blood Pressure 124/58 Pulse Oximetry 96 98 08/03/24 23:18 08/03/24 23:23 08/03/24 23:24 Temperature Pulse Rate 128 H 131 H 131 H Respiratory Rate Blood Pressure 122/66 Pulse Oximetry 97 96 08/03/24 23:28 08/03/24 23:33 08/03/24 23:35 Temperature Pulse Rate 127 H 124 H 125 H Respiratory Rate Blood Pressure Pulse Oximetry 98 97 93 08/03/24 23:38 08/03/24 23:39 08/03/24 23:43 Temperature Pulse Rate 116 H 120 H 114 H Respiratory Rate Blood Pressure 100/51 Pulse Oximetry 97 97 08/03/24 23:48 08/03/24 23:53 08/03/24 23:54 Temperature Pulse Rate 121 H 110 H 117 H Respiratory Rate Blood Pressure 95/53 Pulse Oximetry 97 98 08/03/24 23:58 08/04/24 00:03 08/04/24 00:08 Temperature Pulse Rate 110 H 116 H 107 H Respiratory Rate Blood Pressure 102/52 Pulse Oximetry 97 97 97 08/04/24 00:22 08/04/24 00:23 08/04/24 00:38 Temperature 96.3 F L Pulse Rate 125 H 99 Respiratory Rate Blood Pressure 117/64 110/61 Pulse Oximetry 08/04/24 00:53 08/04/24 01:23 08/04/24 01:38 Temperature Pulse Rate 100 100 109 H Respiratory Rate Blood Pressure 113/61 110/59 109/61 Pulse Oximetry 08/04/24 01:54 08/04/24 02:00 Temperature 97.9 F Pulse Rate 98 98 Respiratory Rate 17 Blood Pressure 108/61 108/61 Pulse Oximetry 97 Care JESSE Calculator Estimated Delivery Date Method Current WG Current Estimate 09/20/24 LMP (Certain) 33w 2d Other Estimates 09/24/24 Ultrasound #1 32w 5d Expected Delivery Route/Plan Specific Issues/Plans * tubal ligation with reversal * hx of drug use * fibromyalgia * migraine Final Diagnosis Final Diagnosis (1) 33 weeks gestation of : Plan: 1. IV fluid hydration with tocolytics treatment with terbutaline and Procardia. 2. DC patient to home, patient advised to keep scheduled appointment. 3. Patient advised to return to labor and delivery if leakage of fluid, vaginal bleeding or return of uterine contractions every 5 minutes with abdominal pain or discomfort. Status: Acute Code(s): Z3A.33 - 33 weeks gestation of (2) uterine contractions in third trimester, antepartum: Plan: Treated with IV fluid, terbutaline 0.25 mg and Procardia 30 mg p.o. Status: Acute Code(s): O47.03 - False labor before 37 completed weeks of gestation, third trimester (3) History of drug use: Status: Acute Code(s): F19.91 - Other psychoactive substance use, unspecified, in remission (4) Urinary tract infection affecting care of mother in third trimester, antepartum: Plan: Treated with IV fluid and Ancef 2 g IV piggyback. Status: Acute Code(s): O23.43 - Unspecified infection of urinary tract in , third trimester Coding Level of Care Code Acute Code for Chg Fwd Diagnoses 33 weeks gestation of Z3A.33 uterine contractions in third trimester, antepartum O47.03 History of drug use F19.91 Urinary tract infection affecting care of mother in third trimester, antepartum O23.43
== END 2024-08-04 02:00 | disposition home or self-care (01) ==
LOC: OPOB 20:12 → OBGYN 20:13
PROVIDERS: PCP Family Medicine; Visit Provider Obstetrics & Gynecology
DX: O47.03 False labor before 37 completed weeks of gestation, third trimester (principal); Z3A.33 33 weeks gestation of pregnancy; F19.91 Other psychoactive substance use, unspecified, in remission; O23.43 Unspecified infection of urinary tract in pregnancy, third trimester
CPT/HCPCS: 59025; 81001; 83986; 87086; 96372; 99211; J0690; J3105; J7120

== ENCOUNTER 2024-08-08 13:33 | Outpatient (CLI) | payer MEDICAID, SELFPAY ==
[2024-08-08] VITALS (9 sets, daily range): BP systolic 99–123; BP diastolic 56–75; PULSE 84–107; O2SAT 98; BMI 31.8
[2024-08-08 14:07] LABS: Bilirubin Urine Negative (Negative); Blood Urine Negative (Negative); Glucose Urine UA Negative (Normal); Ketones Urine Negative (Negative); Leukocyte Esterase Urine 3+ (Negative); Nitrate Urine Negative (Negative); Protein Urine Negative (Negative); Specific Gravity, Urine 1.001 (1.005-1.030); Urine Appearance Clear (CLEAR); Urine Color Yellow (Yellow); Urobilinogen Urine 0.2 mg/dL (Negative); pH Urine 7.5 (5-7)
[2024-08-08 14:12] LABS: Bacteria Urine Trace /hpf; RBC Urine 0-2 /hpf (0-2); Squamous Epithelial Cell Urine 0-5 /hpf (0-5)
[2024-08-08 14:28] LABS: Add Urine Culture? No
== END 2024-08-08 15:57 | disposition home or self-care (01) ==
LOC: OPOB 13:33 → OBGYN 13:37
PROVIDERS: PCP Family Medicine; Visit Provider Obstetrics & Gynecology
DX: O26.899 Other specified pregnancy related conditions, unspecified trimester (principal); Z3A.00 Weeks of gestation of pregnancy not specified; R10.9 Unspecified abdominal pain
CPT/HCPCS: 59025; 81001; 99211

== ENCOUNTER 2024-08-16 20:55 | Outpatient (CLI) | payer MEDICAID, SELFPAY ==
[2024-08-16] VITALS (11 sets, daily range): BP systolic 106–111; BP diastolic 57–64; PULSE 93–107; O2SAT 96–97; BMI 32.4
== END 2024-08-16 22:00 | disposition home or self-care (01) ==
LOC: OPOB 21:06 → OBGYN 21:07
PROVIDERS: PCP Family Medicine; Visit Provider Obstetrics & Gynecology
DX: O36.8190 Decreased fetal movements, unspecified trimester, not applicable or unspecified (principal); Z3A.00 Weeks of gestation of pregnancy not specified; R51.9 Headache, unspecified; R10.9 Unspecified abdominal pain
CPT/HCPCS: 59025; 99211

== ENCOUNTER 2024-08-21 13:25 | Outpatient (CLI) | payer MEDICAID, SELFPAY ==
[2024-08-21 13:29] VITALS: BP 104/68; PULSE 115
[2024-08-21 13:50] VITALS: BMI 33.2
== END 2024-08-21 15:02 | disposition home or self-care (01) ==
LOC: OPOB 13:26 → OBGYN 13:27
PROVIDERS: PCP Family Medicine; Visit Provider Obstetrics & Gynecology
DX: O26.899 Other specified pregnancy related conditions, unspecified trimester (principal); Z3A.00 Weeks of gestation of pregnancy not specified; Z91.81 History of falling
CPT/HCPCS: 59025; 83986; 99211

== ENCOUNTER 2024-08-24 21:45 | Outpatient (CLI) | payer MEDICAID, SELFPAY ==
[2024-08-24 21:56] VITALS: BMI 32.8
[2024-08-24 22:03] VITALS: BP 120/67; PULSE 100
[2024-08-24 22:19] VITALS: BP 106/56; PULSE 104
== END 2024-08-24 22:30 | disposition home or self-care (01) ==
LOC: OPOB 21:53 → OBGYN 21:54
PROVIDERS: PCP Family Medicine; Visit Provider Obstetrics & Gynecology
DX: O26.899 Other specified pregnancy related conditions, unspecified trimester (principal); Z3A.00 Weeks of gestation of pregnancy not specified; R10.9 Unspecified abdominal pain; N89.8 Other specified noninflammatory disorders of vagina
CPT/HCPCS: 83986

== ENCOUNTER 2024-08-26 02:45 | Inpatient (IN) | payer MEDICAID, SELFPAY ==
[2024-08-26] VITALS (134 sets, daily range): BP systolic 87–132; BP diastolic 48–83; PULSE 98–150; RESP 14–18; TEMP 36.5–37.1; O2SAT 95–100; BMI 32.6
[2024-08-26 03:04] LABS: Nitrazine Paper, PH Negative
[2024-08-26] MEDS: lactated ringers 1,000 ML 999 ML IV ×2 (03:05→11:50)
[2024-08-26] MEDS: ampicillin 2,000 MG in sodium chloride 0.9% (plus) 50 ML 100 MG IV (03:17)
[2024-08-26 03:29] LABS: Basophils % 0.1 %; Eosinophils # 0.1 10^3/uL (0.0-0.8); Eosinophils % 0.7 %; Hematocrit 35.8 % (36-47); Lymphocytes # 1.5 10^3/uL (0.8-4.8); Lymphocytes % 10.7 %; Mean Corpuscular HGB Conc 33.5 g/dL (30-55); Mean Corpuscular Hemoglobin 30.4 pg (27-33); Mean Corpuscular Volume 90.6 fl (85-98); Mean Platelet Volume 10.6 fL (7.4-10.4); Monocytes # 0.8 10^3/uL (0.2-0.9); Monocytes % 6.1 %; Neutrophils % 81.6 %; Nucleated Red Blood Cells % 0 %; Platelet Count 185 10^3/cmm (157-399); Red Blood Count 3.95 10^6/uL (3.85-5.65); Red Cell Distribution Width 13.4 % (12.1-15.1)
--- NOTE | 2024-08-26 04:40 | ANES.PROC ---
Anesthesia Procedures Procedure/Date: 08/26/24 Epidural: Time Out Performed: Yes Consents Signed: Procedure Consent Consent: requested by attending/covering physician and from patient Lumbar Level: L3-L4 Epidural position: sitting Epidural procedure: sterile prep of area, 1% lidocaine to numb the area, 18 g needle, neg for paresthesia, test dose given, 1.5% xylocaine 1:200k epi (3cc), 0.2% Ropivacaine bolus ml (4cc and Fentanyl 100mcg), placed PCEA, no systemic response, sterile dressing applied, L.U.D. no apparent complications and 0.2% Ropiavacaine @ mls/hr (10cc/hour) Additional Comments: Pt tolerated well
--- NOTE | 2024-08-26 04:43 | ANES.PREANE2 ---
Pre-Anesthetic Assessment Height/Weight: Height 1.49 m Weight 72.121 kg Pulse BP Pulse Ox O2 Del Method 115 H 118/66 100 Room Air 08/26/24 04:39 08/26/24 04:38 08/26/24 04:39 08/26/24 02:38 Preop Diagnosis: Labor pain EZEKIEL Was Beta Arie taken within 24 hours: N/A Was Clonidine taken within 24 hours: N/A Social No alcohol and No tobacco Prior meth addict. Clean 3 years Exam alert, oriented x 3, clear to auscultation bilaterally and regular rate & rhythm Airway Submandibular: within normal limits Cervical ROM: within normal limits Mallampati: Class II Dentition: full History/ROS No significant history except as noted and No significant complaints Pulmonary Asthma (as a child) CV/HEM None reported None reported Hepatic None reported GI Gastroesophageal Reflux Disease Metabolic None reported Musc/skel None reported Neuropsych None reported Anesthetic Plan ASA status: 2 Anesthesia: Anesthesia Evaluation and Regional (specify below) Other: EZEKIEL Risk of > 500 ml blood loss (7ml/kg in children): No Medications/Allergies Home Medications Medication Instructions Recorded Confirmed Last Taken Type albuterol sulfate 90 mcg/actuation 1 inh inhalation QID PRN shortness 10/18/22 08/26/24 Unknown Rx aerosol inhaler of breath or wheezing #8.5 grams acetaminophen 500 mg tablet 1,000 mg PO Q6H PRN Pain 01/20/23 08/26/24 Unknown History calcium carbonate (Tums) 200 mg PO BID 03/06/24 08/26/24 08/21/24 History docosahexaenoic acid 200 mg 200 mg PO DAILY 04/11/24 08/26/24 08/25/24 History capsule ( DHA) prednisone 10 mg tablet 10 mg PO DAILY 5 days #5 tabs 07/25/24 08/26/24 08/21/24 Rx diphenhydramine HCl 25 mg capsule 25 mg PO TID PRN Itching 07/27/24 08/26/24 08/21/24 History (Benadryl) Allergies Allergy/AdvReac Type Severity Reaction Status Date / Time morphine Allergy Intermediate Unknown Verified 08/26/24 01:26 iodine Allergy ALGY-Rash Verified 08/26/24 01:26 Latex, Natural Rubber Allergy ALGY-Rash Verified 08/26/24 01:26 povidone-iodine Allergy swelling Verified 08/26/24 01:26 [From Betadine] soap [From Betadine] Allergy swelling Verified 08/26/24 01:26 Sulfa (Sulfonamide Allergy ALGY-Rash Verified 08/26/24 01:26 Antibiotics) [facility] Anesthesia Medical History Heavy menstrual bleeding No pertinent past medical history neghx: htn,dm,thyroid,dvt/pe PCP: Dr. Sawyer Deal Bipolar disorder Anxiety TIA (transient ischemic attack) Surgical History History of tonsillectomy and adenoidectomy History of reversal of tubal ligation (~2020) History of tubal ligation (~2013) Hx of appendectomy History of cholecystectomy Family History Grandfather Cancer skin cancer Hyperlipidemia maternal Hypertension maternal Heart disease maternal Mother Diabetes Hyperlipidemia Stroke Heart disease Father Stroke Heart disease Other CAD (coronary artery disease) Clotting disorder Dementia Lung disease Psychiatric illness Denies family history of Colon cancer Ovarian cancer Chronic kidney disease (CKD) Breast cancer Anesthesia complication Bleeding disorder Uterine cancer Thyroid disease Social History Smoking and tobacco/nicotine status: former use of tobacco/nicotine Female Reproductive History : 6 Data Anesthesia 08/26/24 03:16 Short CBC 08/26/24 Range/Units 03:16 WBC 13.60 H (3.29-11.43) 10^3/uL Hgb 12.00 (11.27-16.99) g/dL Hct 35.8 L (36-47) % MCV 90.6 (85-98) fl Plt Count 185 (157-399) 10^3/cmm Neut % (Auto) 81.6 % Neut # (Auto) 11.10 H (1.8-7.7) 10^3/uL Cardiac Studies: No Data to Display
[2024-08-26] MEDS: dextrose 5%-sod chloride 0.45% 1,000 ML 125 ML IV (04:44)
[2024-08-26] MEDS: ROPivacaine syringe 100 MG/50 ML SYRINGE 10 MG EPIDURAL ×3 (04:48→13:27)
[2024-08-26] MEDS: ampicillin 1,000 MG in sodium chloride 0.9% (plus) 50 ML 100 MG IV ×2 (07:48→11:30)
[2024-08-26] MEDS: oxytocin 30 UNIT/500 ML BAG IV (09:54)
--- NOTE | 2024-08-26 10:30 | PM.OPHPUD ---
Labor & Delivery H&P Update Date of Procedure: August 26, 2024 Date H&P Performed: 07/27/24 Changes to previous documentation: 34-year-old female G6, P4 at 36.3 weeks gestation admitted to labor and delivery after extensive observation for uterine contractions followed by change in cervical dilatation. Patient was initially 3 cm / 40%/-5 vertex presentation with pinkish vaginal discharge and irregular contractions. And progressed to 4 cm when she was admitted. Patient rated her pain 7 out of 10 and had began to request an epidural for pain management. Patient is GBS status was unknown therefore she will be treated per protocol. Patient's record has been reviewed. Admission Diagnosis: Preop diagnosis: Labor pain Primary indication for procedure: Patient was observed for labor throughout the night with irregular uterine contractions and her cervix progress from 3 cm to 5 cm. Contractions had spaced to become irregular therefore I discussed with patient this morning augmentation with Pitocin. External monitoring was category 1. I reviewed with patient the possibility of nonreassuring monitoring which could result in primary section delivery. Patient questioned rupturing her membranes, I discussed with her that the baby's head was not engaged and rupturing her membranes at this time could result in prolapse of the umbilical cord which would result in an emergency section. Patient understands. I reviewed with patient using Pitocin to increase contraction frequency and intensity in hopes that the uterine contractions would push the baby down therefore engaging the head in the pelvis which then her membranes could be ruptured. Planned procedure: Admission to labor and delivery. Augmentation with Pitocin Anticipate . Discussed primary section if nonreassuring monitoring occurs. Related Problem List Diagnoses (1) 36 weeks gestation of : Will treat for GBS unknown status due to prematurity. (2) labor in third trimester: (3) Urinary tract infection affecting care of mother in third trimester, antepartum: (4) History of drug use: (5) uterine contractions in third trimester, antepartum: (6) Fibromyalgia: (7) Hyperinsulinemia: (8) Bipolar disorder: (9) Anxiety: (10) ROSENDO positive: (11) Common migraine with intractable migraine: (12) Supervision of other high-risk : (13) Chest pain: (14) Pelvic pain:
--- NOTE | 2024-08-26 13:05 | P.PN_ITS ---
[employer] Subjective 2 Subjective: Interval history: 34-year-old G6, P4 at 36.3 weeks gestati on seen with regular contractions now q. 1 to 2 minutes with Pitocin augmentation. Cervix?4 to 5 cm / 90%/-4 with bulging membranes. AROM?clear fluid EFM?category 1 Discussed AROM and possibility of cord prolapse and nonreassuring monitoring. Patient and family understands. Labor: Station: -3 Amniotic Membrane Status: Intact Monitor Mode: External Contraction Pattern: Regular Vitals/I&O/Wt Last Vital Signs Temp 98.4 F 08/26/24 11:40 Pulse 129 H 08/26/24 12:56 BP 107/65 08/26/24 12:56 Pulse Ox 98 08/26/24 08:27 O2 Del Method Room Air 08/26/24 02:38 08/25/24 08/26/24 08/26/24 22:59 06:59 14:59 Intake Total 1050 / 1050 108.517 / 108.517 Balance 1050 / 1050 108.517 / 108.517 Weight last 48 hrs Weight 72.121 kg Physical Exam 2 Urinary Catheter Management: Whatley Latex Free: Cath Placed During This Visit: yes Reason for Continuing Indwelling Catheter: Required Immobilization for Trauma or Surgery or Anesthesia Urinary Catheter Date of Insertion: 08/26/24 Urinary Catheter Time of Insertion: 05:20 Data 08/26/24 03:16 Attestations 2 Medical Necessity Statement*: Management of labor at 36 weeks gestation Coding Level of Care Code Acute Code for Chg Fwd
--- NOTE | 2024-08-26 15:23 | P.PCNOB_ITS ---
Delivery Note: Date of delivery: August 26, 2024 Pre-delivery diagnoses: 36.4 weeks IUP labor History of drug use?recovery Post-delivery diagnoses: Same Procedure: viable male Op report anesthesia: Epidural Estimated blood loss (mL): 500 Findings: Viable male Delivery: 34-year-old female delivered via S VD of viable male over intact perineum. The vertex presented in a OA presentation followed by the anterior then posterior shoulders with the remainder the baby's body to follow. A spontaneous weak cry resulted, the baby was stimulated by rubbing his back with a more robust cry resulting. After delay in clamping the cord, the cord was clamped and cut History History History 6 Term 4 1 Miscarriages/Ectopic 2 Living Children 5 A&P Assessment and plan (1) labor with delivery: Began care (2) (spontaneous vaginal delivery): (3) labor in third trimester: (4) 36 weeks gestation of : (5) Urinary tract infection affecting care of mother in third trimester, antepartum: (6) History of drug use: (7) uterine contractions in third trimester, antepartum: (8) Anxiety: Coding Level of Care Code Acute Code for Chg Fwd Diagnoses labor with delivery O60.10X0 (spontaneous vaginal delivery) O80 labor in third trimester O60.03 36 weeks gestation of Z3A.36 Urinary tract infection affecting care of mother in third trimester, antepartum O23.43 History of drug use F19.91 uterine contractions in third trimester, antepartum O47.03 Anxiety F41.9
[2024-08-26] MEDS: acetaminophen 325 mg Tablet 650 MG PO (18:04)
[2024-08-26] MEDS: docusate sodium 100 mg Capsule PO (18:04)
[2024-08-26] MEDS: ibuprofen 800 mg tablet PO (20:47)
[2024-08-27] MEDS: acetaminophen 325 mg Tablet 650 MG PO ×2 (00:18→07:36)
[2024-08-27 03:47] VITALS: BP 100/60; PULSE 90; RESP 18; O2SAT 97
[2024-08-27 04:03] LABS: Hematocrit 33.3 % (36-47); Mean Corpuscular HGB Conc 33.6 g/dL (30-55); Mean Corpuscular Hemoglobin 30.8 pg (27-33); Mean Corpuscular Volume 91.5 fl (85-98); Mean Platelet Volume 10.5 fL (7.4-10.4); Platelet Count 161 10^3/cmm (157-399); Red Blood Count 3.64 10^6/uL (3.85-5.65); Red Cell Distribution Width 13.8 % (12.1-15.1); White Blood Count 12.37 10^3/uL (3.29-11.43)
[2024-08-27 04:23] LABS: Glucose Point of Care 59 mg/dL (70-110)
[2024-08-27] MEDS: docusate sodium 100 mg Capsule PO (09:07)
[2024-08-27] MEDS: ibuprofen 800 mg tablet PO ×2 (09:07→16:18)
[2024-08-27] MEDS: PRENATAL VIT NO.130/IRON/FOLIC 1 EACH TABLET PO (09:07)
[2024-08-27 09:11] VITALS: BP 104/68; PULSE 91; RESP 17
--- NOTE | 2024-08-27 12:01 | P.DS_ITS ---
Discharge Providers A[employer]ING AND CULTIVATION MANAGER Date of Admission: 08/26/24 02:45 Date of Discharge: 08/27/24 Attending Provider at Admission: Sahara Downing DO Attending Provider at Discharge: Sahara Downing DO Primary A[employer] PL[employer]ING AND CULTIVATION MANAGER: Dr. Keith Brannon Primary Care Provider: Sawyer Deal MD Diagnoses at Discharge Discharge Diagnosis (1) labor with delivery: Details from hospital stay: 34-year-old female G6 P 5 was admitted to labor and delivery in early labor. Cervix was slow to change and vertex remained at a very high station until after augmentation with Pitocin. Patient delivered of viable male without complications. Patient denies problems this morning, she is ambulating, tolerating a regular diet and voiding. VSS, afebrile Abdomen?soft, fundus firm. Lochia?light Extremities?no edema, negative Homans' sign. Lab?reviewed hemoglobin hematocrit Discussed expectations and discharge orders to include no heavy lifting pushing or pulling no sex douching or tampons x 6 weeks. Patient is encouraged to continue her vitamins. Patient states her back is sore where she had the epidural placement, encouraged ibuprofen, ice packs and heating pad if needed. Patient understands. Status: Acute (2) (spontaneous vaginal delivery): Details from hospital stay: See above Status: Acute (3) labor in third trimester: Status: Acute (4) 36 weeks gestation of : Status: Acute (5) Urinary tract infection affecting care of mother in third trimester, antepartum: Status: Acute (6) History of drug use: Status: Acute (7) uterine contractions in third trimester, antepartum: Status: Acute (8) Anxiety: Status: Acute Reason for Visit Reason for Visit: contractions, vaginal bleeding Hospital Course Hospital Course See above Information Peripartum Data: Infant Delivery Method: Vaginal Laceration description: None Episiotomy description: None complications: none Physical Exam Back/Pelvis: OTHER: Abdomen?soft, fundus firm. Lochia light Urinary Catheter Management: Whatley Latex Free: Cath Placed During This Visit: yes, but has since been removed by the nurse Reason for Continuing Indwelling Catheter: Decision to DC Catheter Urinary Catheter Date of Insertion: 08/26/24 Urinary Catheter Time of Insertion: 05:20 Date Urinary Catheter Removed: 08/26/24 Time Urinary Catheter Discontinued: 14:56 History History History 6 Term 4 1 Miscarriages/Ectopic 2 Living Children 5 Discharge Data Studies Completed and Pending Laboratory Results WBC 12.37 10^3/uL (3.29-11.43) H 08/27/24 03:45 RBC 3.64 10^6/uL (3.85-5.65) L 08/27/24 03:45 Hgb 11.20 g/dL (11.27-16.99) L 08/27/24 03:45 Hct 33.3 % (36-47) L 08/27/24 03:45 MCV 91.5 fl (85-98) 08/27/24 03:45 MCH 30.8 pg (27-33) 08/27/24 03:45 MCHC 33.6 g/dL (30-55) 08/27/24 03:45 RDW 13.8 % (12.1-15.1) 08/27/24 03:45 Plt Count 161 10^3/cmm (157-399) 08/27/24 03:45 MPV 10.5 fL (7.4-10.4) H 08/27/24 03:45 Neut % (Auto) 81.6 % 08/26/24 03:16 Lymph % (Auto) 10.7 % 08/26/24 03:16 Coke % (Auto) 6.1 % 08/26/24 03:16 Eos % (Auto) 0.7 % 08/26/24 03:16 Baso % (Auto) 0.1 % 08/26/24 03:16 Neut # (Auto) 11.10 10^3/uL (1.8-7.7) H 08/26/24 03:16 Lymph # (Auto) 1.5 10^3/uL (0.8-4.8) 08/26/24 03:16 Coke # (Auto) 0.8 10^3/uL (0.2-0.9) 08/26/24 03:16 Eos # (Auto) 0.1 10^3/uL (0.0-0.8) 08/26/24 03:16 Baso # (Auto) 0.0 10^3/uL (0.0-0.1) 08/26/24 03:16 Nucleated RBC % (auto) 0 % 08/26/24 03:16 Nucleated RBCs # 0.0 /100WBC 08/26/24 03:16 POC Glucose 59 mg/dL (70-110) L 08/27/24 04:20 Fluid pH (paper) Negative 08/26/24 01:47 Blood Type A Positive 08/26/24 03:16 Rho(D) Type Rh positive 08/26/24 03:16 Antibody Screen Negative 08/26/24 03:16 Vitals Last Vital Signs Temp 97.7 F 08/26/24 23:56 Pulse 91 08/27/24 09:11 Resp 17 08/27/24 09:11 BP 104/68 08/27/24 09:11 Pulse Ox 97 08/27/24 03:47 O2 Del Method Room Air 08/27/24 03:47 Results Labs OB ([facility]): Obstetrics US 06/25/24 Blood Type A Positive 08/26/24 Antibody Screen Negative 08/26/24 Hct 33.3 % (36-47) L 08/27/24 Hgb 11.20 g/dL (11.27-16.99) L 08/27/24 Rho(D) Type Rh positive 08/26/24 Plt Count 161 10^3/cmm (157-399) 08/27/24 Hep Bs Antigen Non-reactive (Nonreactive) 03/06/24 Hepatitis C Antibody Non-reactive (Nonreactive) 03/06/24 Rubella IgG Antibody 92.6 IU/mL (0.0-10.0) H 03/06/24 RPR Nonreactive (Nonreactive) 03/06/24 HIV 1&2 Ab & HIV 1 Ag Non-reactive (Non-Reactiv) 03/06/24 TSH 1.07 uIU/mL (0.27-4.20) 07/18/23 C.trachomatis RNA (TMA) Not detected (NOT DETECTED) N.gonorrhoeae RNA (TMA) Not detected (NOT DETECTED) T. vaginalis Amp RNA Not detected (NOT DETECTED) 03/30/24 Chlamydia/GC Comment See note 03/30/24 Cystic Fibrosis Screen Negative 03/06/24 Glucose 1 Hr 50 gm 132 mg/dL (85-140) 06/05/24 Hemoglobin A1c 5.2 % (4.0-6.0) 01/05/23 FSH 4.2 mIU/mL 11/27/23 Ser , Semi-Qnt 10573.00 mIU/mL 01/30/24 HCG, Qual Positive (Negative) H 01/25/24 Urine Opiates Screen Negative ng/mL (Negative) 06/20/24 Ur Barbiturates Screen Negative ng/mL (Negative) 06/20/24 Ur Phencyclidine Scrn Negative ng/mL (Negative) 06/20/24 Ur Amphetamines Screen Negative ng/mL (Negative) 06/20/24 U Benzodiazepines Scrn Negative ng/mL (Negative) 06/20/24 Urine Cocaine Screen Negative ng/mL (Negative) 06/20/24 U Marijuana (THC) Screen Negative ng/mL (Negative) 06/20/24 Micro Urine Specimen 08/03/24 Prolactin 10.45 ng/mL (4.8-23.3) 07/18/23 Discharge Plan Discharge Patient Disposition: Home Condition: Stable Prescriptions: Continued albuterol sulfate 90 mcg/actuation HFA aerosol inhaler 1 inh inhalation QID PRN (Reason: shortness of breath or wheezing) Qty: 8.5 1RF prednisone 10 mg tablet 10 mg PO DAILY 5 Days Qty: 5 0RF calcium carbonate [Tums] 200 mg calcium (500 mg) tablet,chewable 200 mg PO BID DHA 200 mg capsule 200 mg PO DAILY diphenhydramine HCl [Benadryl] 25 mg capsule 25 mg PO TID PRN (Reason: Itching) acetaminophen [Tylenol Ex Str Rapid Release] 500 mg Tablet 1,000 mg PO Q6H PRN (Reason: Pain) Discharge Orders: Discharge Order (Routine); Ordered 08/27/24 Ordered By: Sahara Downing Discharge Diet: Regular Discharge Activity: Increase activity as tolerated Patient Instructions: Opioid Safety Activity Restrictions/Additional Instructions: Patient to refrain from strenuous activity. Patient to refrain from sexual intercourse x 6 weeks. Patient to continue vitamins which she has at home. Assessment: S/p viable male Plan of Treatment: Continue care until discharge. Discharge to home after 24 hours from delivery. Patient to follow-up in 4 to [address] Brannon for care. Discharge Attestations [employer] PL[employer] AND CULTIVATION MANAGER Time Spent in Discharge Care*: less than 30 min Coding Level of Care Code Acute Code for Chg Fwd Diagnoses labor with delivery O60.10X0 (spontaneous vaginal delivery) O80 labor in third trimester O60.03 36 weeks gestation of Z3A.36 Urinary tract infection affecting care of mother in third trimester, antepartum O23.43 History of drug use F19.91 uterine contractions in third trimester, antepartum O47.03 Anxiety F41.9
--- NOTE | 2024-08-27 12:48 | ANE.PACU2 ---
Inpatient post-anesthesia follow up: Airway intact: Yes Vital signs: Temperature 97.7 F Pulse Rate 91 Respiratory Rate 17 Blood Pressure 104/68 Pulse Oximetry 97 Oxygen Delivery Me thod Room Air Oxygen Flow Rate Fraction of Inspir ed Oxygen Hydration adequate: Yes Nausea and vomiting: No Pain level: 2 Mental status: Baseline
[2024-08-27 15:29] VITALS: BP 100/65; PULSE 84; RESP 17; TEMP 36.8; O2SAT 96
[2024-08-27 16:20] VITALS: BP 100/65; PULSE 84; RESP 17; TEMP 36.8; O2SAT 96
== END 2024-08-27 16:20 | disposition home or self-care (01) | DRG 805 ==
LOC: OPOB 02:45 → OBGYN 02:45
PROVIDERS: Admitting Provider Obstetrics & Gynecology; PCP Family Medicine; Visit Provider Obstetrics & Gynecology
DX: O99.344 Other mental disorders complicating childbirth (principal); O60.14X0 Preterm labor third trimester with preterm delivery third trimester, not applicable or unspecified; Z37.0 Single live birth; Z3A.36 36 weeks gestation of pregnancy; F41.9 Anxiety disorder, unspecified
CPT/HCPCS: 36415; 36416; 51702; 59025; 59409; 82962; 83986; 85025; 85027; 86850; 86900; 98960; 99211; J0290; J2590; J2795; J3010; J7120; J7799

== ENCOUNTER → 2024-10-12 14:23 | Outpatient (BNVA) | payer MEDICAID, SELFPAY | PROVIDERS: PCP Family Medicine; Visit Provider Obstetrics & Gynecology | DX: Z12.4 Encounter for screening for malignant neoplasm of cervix (principal) | CPT/HCPCS: 87624 ==

== ENCOUNTER → 2024-11-26 12:57 | Outpatient (BNVA) | payer MEDICAID, SELFPAY | PROVIDERS: PCP Family Medicine; Visit Provider Emergency Medicine | DX: R05.9 Cough, unspecified (principal) | CPT/HCPCS: 87426 ==

== ENCOUNTER 2025-01-13 13:16 | Inpatient (IN) | payer MEDICAID, SELFPAY ==
[2025-01-13 13:20] VITALS: BP 142/91; PULSE 91; RESP 19; TEMP 36.9; O2SAT 98; BMI 29.2
[2025-01-13 13:25] VITALS: BP 142/91; PULSE 91; RESP 19; O2SAT 98
--- NOTE | 2025-01-13 13:47 | ECG_ITS ---
[facility]13 Pat Name: Mateus English Department: Room: Gender: Female Changeover Operator: : 1990 Requested By: Zeke Brar Order Number: [id number] Rosanna MD: DION BOOTH Measurements Intervals [place] Rate: 77 P: 29 TN: 104 QRS: 57 QRSD: 82 T: 41 QT: 372 QTc: 422 Interpretive Statements SINUS RHYTHM WITH SHORT TN INTERVAL No previous ECG available for comparison Electronically Signed On 01-14-2025 19:04:49 CDT by DION BOOTH [email or web address]
[2025-01-13 13:55] LABS: Basophils % 0.6 %; Eosinophils # 0.1 10^3/uL (0.0-0.8); Eosinophils % 2.1 %; Hematocrit 42.4 % (36-47); Lymphocytes # 1.8 10^3/uL (0.8-4.8); Lymphocytes % 29.1 %; Mean Corpuscular HGB Conc 33.3 g/dL (30-55); Mean Corpuscular Hemoglobin 30.5 pg (27-33); Mean Corpuscular Volume 91.8 fl (85-98); Mean Platelet Volume 9.7 fL (7.4-10.4); Monocytes # 0.4 10^3/uL (0.2-0.9); Monocytes % 5.5 %; Neutrophils # 3.95 10^3/uL (1.8-7.7); Neutrophils % 62.5 %; Nucleated Red Blood Cells % 0 %; Platelet Count 284 10^3/cmm (157-399); Red Blood Count 4.62 10^6/uL (3.85-5.65); Red Cell Distribution Width 11.3 % (12.1-15.1); White Blood Count 6.32 10^3/uL (3.29-11.43)
[2025-01-13 14:03] LABS: Bilirubin Urine Negative (Negative); Blood Urine Negative (Negative); Glucose Urine UA Negative (Normal); Ketones Urine Trace (Negative); Leukocyte Esterase Urine Trace (Negative); Nitrate Urine Negative (Negative); Protein Urine Trace (Negative); Specific Gravity, Urine 1.027 (1.005-1.030); Urine Appearance Clear (CLEAR); Urine Color Yellow (Yellow); pH Urine 5.5 (5-7)
[2025-01-13 14:04] LABS: HCG Qualitative Urine. Negative (Negative)
[2025-01-13 14:06] LABS: Acetaminophen < 5.0 ug/mL (10-30); Alanine Aminotransferase 34 U/L (0-33); Albumin Level 4.1 g/dL (3.5-5.2); Alkaline Phosphatase 122 U/L (35-105); Anion Gap 15.5 (5-19); Aspartate Amino Transferase 25 U/L (0-32); Blood Urea Nitrogen 11 mg/dL (6-20); Carbon Dioxide 24 mmol/L (22-29); Chloride 99 mmol/L (98-107); Creatinine Clr Calc Pharmacy 133.6944; Globulin 3.7 g/dL (1.3-4.6); Glomerular Filtration Rate 115.1 mL/min (90-130); Glucose 104 mg/dL (65-115); Osmolality Calculated 280 mOsm/kg (285-295); Potassium 3.5 mmol/L (3.5-5.1); Salicylate < 0.3 mg/dL (3-10); Sodium 135 mmol/L (136-145); Total Bilirubin 0.2 mg/dL (0.15-1.2); Total Protein 7.8 g/dL (6.6-8.7)
[2025-01-13 14:08] LABS: Add Urine Microscopic? YES; Bacteria Urine 1+ /hpf; Hyaline Casts Urine 4.95 /lpf; RBC Urine 0-2 /hpf (0-2)
[2025-01-13 14:10] LABS: Amphetamines Screen Urine Positive (Negative); Barbiturates Screen Urine Negative (Negative); Benzodiazepines Screen Urine Negative (Negative); Cocaine Screen Urine Negative (Negative); Opiate Screen Urine Negative (Negative); PCP Screen Urine Negative (Negative); THC Screen Urine Positive (Negative)
--- NOTE | 2025-01-13 15:55 | W.ED.PSYCHS ---
HPI - Psych General: Chief Complaint: Psychiatric Symptoms Stated Complaint: SI Time Seen by Provider: 01/13/25 13:28 History of Present Illness: Patient is a female presenting with severe depression and active suicidal ideation. She reports struggling with depression for approximately 3 months following the of her fifth child. Patient consulted with Dr. House 2-4 weeks ago and was started on Lexapro. Despite initial improvement, she reports significant worsening over the past week. Patient endorses active suicidal ideation with specific plan, stating she held her pill bottles for 30 minutes contemplating overdose. She was deterred by memories of finding her ex-'s body after his suicide by hanging, expressing concern about traumatizing her children. Current symptoms include feeling disconnected from her baby, only bonding during nighttime feedings, poor appetite, social isolation, and inability to care for family members. 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 Patient has history of methamphetamine addiction, clean from IV use for 4 years with one reported relapse over a year ago. Currently has medical marijuana license, using 1-2 times weekly for sleep. Related Data Home Medications ?Medication ?Instructions ?Recorded ?Confirmed acetaminophen 500 mg tablet 1,000 mg PO Q6H PRN Pain 01/20/23 01/13/25 escitalopram oxalate 10 mg tablet 10 mg PO QPM 01/13/25 01/13/25 (Lexapro) norgestimate 0.25 mg-ethinyl 1 tab PO QPM 01/13/25 01/13/25 estradiol 0.035 mg tablet (Sprintec (28)) venlafaxine 75 mg capsule,extended 75 mg PO QPM 01/13/25 01/13/25 release 24 hr Allergies Allergy/AdvReac Type Severity Reaction Status Date / Time morphine Allergy Intermediate Unknown Verified 12/12/24 15:07 iodine Allergy ALGY-Rash Verified 12/12/24 15:07 Latex, Natural Rubber Allergy ALGY-Rash Verified 12/12/24 15:07 povidone-iodine (From Allergy swelling Verified 12/12/24 15:07 Betadine) soap (From Betadine) Allergy swelling Verified 12/12/24 15:07 Sulfa (Sulfonamide Allergy ALGY-Rash Verified 12/12/24 15:07 Antibiotics) PFSH ED PFSH: Medical History History of drug use Heavy menstrual bleeding No pertinent past medical history neghx: htn,dm,thyroid,dvt/pe PCP: Dr. Sawyer [place] Bipolar disorder Anxiety TIA (transient ischemic attack) Surgical History History of tonsillectomy and adenoidectomy History of reversal of tubal ligation (~2020) History of tubal ligation (~2013) Hx of appendectomy History of cholecystectomy Family History Grandfather Cancer skin cancer Hyperlipidemia maternal Hypertension maternal Heart disease maternal Mother Diabetes Hyperlipidemia Stroke Heart disease Father Stroke Heart disease Other CAD (coronary artery disease) Clotting disorder Dementia Lung disease Psychiatric illness Denies family history of Colon cancer Ovarian cancer Chronic kidney disease (CKD) Breast cancer Anesthesia complication Bleeding disorder Uterine cancer Thyroid disease Social History Smoking and tobacco/nicotine status: former use of tobacco/nicotine Physical Exam Const: COMMON NORMALS: no acute distress, average body habitus, alert and well nourished GENERAL APPEARANCE: cooperative ORIENTATION/CONSCIOUSNESS: Yes awake HENMT: COMMON NORMALS: normocephalic and atraumatic HEAD & SCALP: normocephalic and atraumatic Eye: COMMON NORMALS: conjunctivae normal CONJUNCTIVA: Yes conjunctivae normal Neck/C-Spine: GENERAL: Yes normal visual inspection Resp: COMMON NORMALS: normal respiratory effort, No retractions and No use of accessory muscles Cardio: COMMON NORMALS: regular rhythm and Peripheral pulses 2+ throughout RHYTHM: regular rhythm PERIPHERAL PULSES: Peripheral pulses 2+ throughout GI: COMMON NORMALS: Soft to palpation and non-tender PALPATION: Yes Soft to palpation Extremity: COMMON NORMALS: full ROM and no pedal edema Neuro: COMMON NORMALS: no focal motor deficits SENSORIUM/ORIENTATION: Yes alert Skin: COMMON NORMALS: no rashes or lesions noted GENERAL SKIN EXAM: no rashes or lesions noted Course Vital Signs: Vital signs: Vital Signs Temperature 98.5 F 01/13/25 13:20 Pulse Rate 91 01/13/25 13:25 Respiratory Rate 19 H 01/13/25 13:25 Blood Pressure 142/91 01/13/25 13:25 Pulse Oximetry 98 01/13/25 13:25 Oxygen Delivery Me thod Room Air 01/13/25 13:20 MDM - Psych Medical Decision Making ROS: Constitutional: Reports poor appetite Psychiatric: Positive for depression, suicidal ideation, social isolation, and sleep disturbance All other systems reviewed and negative MEDICATIONS AND ALLERGIES: Current Medications: - Lexapro - Venlafaxine (for fibromyalgia/mood disorder) - control (type not specified) - Pseudoephedrine (OTC for allergies) - Medical marijuana (1-2 times weekly) Allergies: - Sulfa - Latex - Morphine (patient requests avoidance due to addiction history) PAST HISTORICAL DATA: Past Medical History: - PTSD - Fibromyalgia - Mood disorder - Depression - History of methamphetamine addiction Obstetric History: - (6 pregnancies, 5 live births) - History of mild depression with previous two pregnancies Social History: - Employed at [employer] disabled [employer] - Lives with and mother who help with childcare - History of CPS involvement - Medical marijuana use 1-2 times weekly - Former IV methamphetamine user, clean for 4 years with one relapse >1 year ago 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 Mucous membranes moist Neck: Supple Respiratory: No increased work of breathing, No wheezing Cardiac: Regular rate and rhythm, 2+ pulses in all extremities Abdomen: Soft, non-distended, no rebound or guarding Neuro: Cranial nerves grossly intact, no focal motor or sensory deficits noted Psychiatric: Tearful, anxious, endorsing active suicidal ideation, thought process organized, insight intact INITIAL IMPRESSION AND PLAN: Given the history and presentation, the primary working diagnosis is Severe Depression with Active Suicidal Ideation. Additional considerations include PTSD exacerbation, substance-induced mood disorder, and underlying medical conditions. Plan: 1. Complete medical clearance with comprehensive labs 2. Psychiatric consultation for inpatient admission 3. Ensure patient safety with appropriate monitoring TEST INTERPRETATIONS: Laboratory Results: - CBC: Unremarkable - CMP: Unremarkable - test: Negative Toxicology Screen: - Positive: Amphetamines, marijuana - Negative: Salicylates, opiates, acetaminophen, barbiturates, PCP, benzodiazepines, cocaine PROCEDURES: No procedures performed during this encounter CONSIDERED BUT NOT PERFORMED: No additional tests or interventions were considered but not performed FINAL IMPRESSION: Based on all the above, my clinical impression is most compatible with Severe Depression with Active Suicidal Ideation requiring inpatient psychiatric admission. The clinical picture is not currently suggestive of acute medical emergency, substance intoxication, or acute psychosis. Although other conditions were also considered, they were deemed unlikely based on the clinical information available. CLINICAL DISPOSITION: The patient's current condition is stable but requires psychiatric admission due to active suicidal ideation with plan and intent. The most appropriate and indicated disposition at this time is inpatient psychiatric admission under Dr. Long. Admission Rationale: Patient presents with severe depression, active suicidal ideation with specific plan, and recent deterioration in symptoms despite outpatient management. Given her psychiatric history, recent worsening of symptoms, and presence of multiple risk factors (including past trauma and substance use history), inpatient psychiatric admission is necessary for patient safety and stabilization. RISK STRATIFICATION AND CLINICAL DECISION RULES APPLIED: Suicide Risk Assessment: High Risk - Positive risk factors: Active suicidal ideation with plan, depression, history of PTSD, previous exposure to suicide, substance use history - Protective factors: Insight into condition, seeking help voluntarily, concern for children's wellbeing, supportive family system CASE SUMMARY: 28-year-old female with history of PTSD and substance use disorder presents with severe depression and active suicidal ideation. Despite recent initiation of Lexapro, symptoms have worsened over the past week, culminating in contemplation of medication overdose. Medical clearance completed with normal labs except for expected positive marijuana and amphetamines on drug screen. Psychiatric consultation obtained, and patient accepted for inpatient admission under Dr. Long for stabilization and management of acute suicidal ideation. Lab Data I reviewed the patient's lab results. 01/13/25 13:39 01/13/25 13:39 Laboratory Results WBC 6.32 10^3/uL (3.29-11.43) 01/13/25 13:39 RBC 4.62 10^6/uL (3.85-5.65) 01/13/25 13:39 Hgb 14.10 g/dL (11.27-16.99) 01/13/25 13:39 Hct 42.4 % (36-47) 01/13/25 13:39 MCV 91.8 fl (85-98) 01/13/25 13:39 MCH 30.5 pg (27-33) 01/13/25 13:39 MCHC 33.3 g/dL (30-55) 01/13/25 13:39 RDW 11.3 % (12.1-15.1) L 01/13/25 13:39 Plt Count 284 10^3/cmm (157-399) 01/13/25 13:39 MPV 9.7 fL (7.4-10.4) 01/13/25 13:39 Neut % (Auto) 62.5 % 01/13/25 13:39 Lymph % (Auto) 29.1 % 01/13/25 13:39 [place] % (Auto) 5.5 % 01/13/25 13:39 Eos % (Auto) 2.1 % 01/13/25 13:39 Baso % (Auto) 0.6 % 01/13/25 13:39 Neut # (Auto) 3.95 10^3/uL (1.8-7.7) 01/13/25 13:39 Lymph # (Auto) 1.8 10^3/uL (0.8-4.8) 01/13/25 13:39 [place] # (Auto) 0.4 10^3/uL (0.2-0.9) 01/13/25 13:39 Eos # (Auto) 0.1 10^3/uL (0.0-0.8) 01/13/25 13:39 Baso # (Auto) 0.0 10^3/uL (0.0-0.1) 01/13/25 13:39 Nucleated RBC % (auto) 0 % 01/13/25 13:39 Nucleated RBCs # 0.0 /100WBC 01/13/25 13:39 Sodium 135 mmol/L (136-145) L 01/13/25 13:39 Potassium 3.5 mmol/L (3.5-5.1) 01/13/25 13:39 Chloride 99 mmol/L (98-107) 01/13/25 13:39 Carbon Dioxide 24 mmol/L (22-29) 01/13/25 13:39 Anion Gap 15.5 (5-19) 01/13/25 13:39 BUN 11 mg/dL (6-20) 01/13/25 13:39 Creatinine 0.6 mg/dL (0.5-0.9) 01/13/25 13:39 GFR Calculation 115.1 mL/min (90-130) 01/13/25 13:39 Glucose 104 mg/dL (65-115) 01/13/25 13:39 Calculated Osmolality 280 mOsm/kg (285-295) L 01/13/25 13:39 Calcium 9.0 mg/dL (8.5-10.5) 01/13/25 13:39 Total Bilirubin 0.2 mg/dL (0.15-1.2) 01/13/25 13:39 AST 25 U/L (0-32) 01/13/25 13:39 ALT 34 U/L (0-33) H 01/13/25 13:39 Alkaline Phosphatase 122 U/L (35-105) H 01/13/25 13:39 Total Protein 7.8 g/dL (6.6-8.7) 01/13/25 13:39 Albumin 4.1 g/dL (3.5-5.2) 01/13/25 13:39 Globulin 3.7 g/dL (1.3-4.6) 01/13/25 13:39 HCG, Qual Negative (Negative) 01/13/25 13:39 Urine Color Yellow (Yellow) 01/13/25 13:39 Urine Appearance Clear (CLEAR) 01/13/25 13:39 Urine pH 5.5 (5-7) 01/13/25 13:39 Ur Specific [place] 1.027 (1.005-1.030) 01/13/25 13:39 Urine Protein Trace (Negative) A 01/13/25 13:39 Urine Glucose (UA) Negative (Normal) 01/13/25 13:39 Urine Ketones Trace (Negative) 01/13/25 13:39 Urine Blood Negative (Negative) 01/13/25 13:39 Urine Nitrate Negative (Negative) 01/13/25 13:39 Urine Bilirubin Negative (Negative) 01/13/25 13:39 Urine Urobilinogen 1.0 mg/dL (Negative) 01/13/25 13:39 Ur Leukocyte Esterase Trace (Negative) A 01/13/25 13:39 Urine RBC 0-2 /hpf (0-2) 01/13/25 13:39 Urine WBC 6-10 /hpf (0-5) 01/13/25 13:39 Ur Squamous Epith Cells 11-20 /hpf (0-5) H 01/13/25 13:39 Amorphous Sediment Not Reportable 01/13/25 13:39 Urine Bacteria 1+ /hpf (NONE) H 01/13/25 13:39 Hyaline Casts 4.95 /lpf 01/13/25 13:39 Salicylates < 0.3 mg/dL (3-10) L 01/13/25 13:39 Urine Opiates Screen Negative ng/mL (Negative) 01/13/25 13:39 Acetaminophen < 5.0 ug/mL (10-30) L 01/13/25 13:39 Ur Barbiturates Screen Negative ng/mL (Negative) 01/13/25 13:39 Ur Phencyclidine Scrn Negative ng/mL (Negative) 01/13/25 13:39 Ur Amphetamines Screen Positive ng/mL (Negative) H 01/13/25 13:39 U Benzodiazepines Scrn Negative ng/mL (Negative) 01/13/25 13:39 Urine Cocaine Screen Negative ng/mL (Negative) 01/13/25 13:39 U Marijuana (THC) Screen Positive ng/mL (Negative) H 01/13/25 13:39 No radiology studies performed this visit Discharge Plan Discharge Patient Disposition: Admitted As Inpatient Clinical Impression: Depression, Suicidal ideation Condition: Stable Coding Level of Care Code ED [employer] for Janiya Summers
[2025-01-13 16:01] VITALS: BP 118/75; PULSE 101; RESP 16; TEMP 36.9; O2SAT 98
[2025-01-13] MEDS: acetaminophen 325 mg Tablet 650 MG PO (17:37)
--- NOTE | 2025-01-13 17:47 | PC.ADMIT ---
[email or web address] Admission Note:Pt is approx 5 months . She states that she has always struggled with anxiety and depression, but after this it has been much worse and not like anything she has dealt with before. She states that she is feeling very overwhelmed. She states that she has financial struggles, trouble with vehicles being broken down, new job and she was afraid to be seen here and risk losing her job, but her boss was very supportive of her getting taken care of. She states that her and her are having trouble with their relationship, because she is so withdrawn and disconnected right now. She feared getting help too, because she was afraid she would lose her children. She states that they are safe at home with her and mother. She has been clean on IV meth use for 4 years, but one year ago she snorted meth one time and has been sober since. Her drug screen was + for meth and thc. She is here voluntarily. Her plan was to kill herself by overdosing on her medications. She states that she didn't follow through with this because she found her ex after he killed himself and she didn't want to do that to her children. She is tearful at times during our conversation, but is calm and cooperative. The patient,Mateus English,35 y/o, was given written information regarding hospital policies, unit procedures and contact persons. Patient's smoking status: former smoker. Vital Signs - 8 hr 01/13/25 13:20 01/13/25 13:25 01/13/25 16:01 Temperature 98.5 F 98.5 F Pulse Rate 91 91 101 H Respiratory Rate 19 H 19 H 16 Blood Pressure 142/91 142/91 118/75 Pulse Oximetry 98 98 98 Oxygen Delivery Method Room Air Room Air 01/13/25 16:49 Temperature Pulse Rate Respiratory Rate Blood Pressure Pulse Oximetry Oxygen Delivery Method Room Air
[2025-01-13 19:41] VITALS: BP 99/66; PULSE 79; RESP 16; TEMP 36.8; O2SAT 97
[2025-01-14 06:00] VITALS: BP 102/67; PULSE 87; RESP 16; TEMP 36.9; O2SAT 97
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
[2025-01-14] MEDS: acetaminophen 325 mg Tablet 650 MG PO ×2 (09:18→19:43)
[2025-01-14] MEDS: buPROPion XL (24 HR) 150 mg Tablet PO (13:10)
[2025-01-14 14:00] VITALS: BP 104/63; PULSE 79; RESP 16; TEMP 36.9; O2SAT 97
[2025-01-14] MEDS: venlafaxine ER (24HR) 75 mg Capsule PO (17:43)
[2025-01-14 20:17] VITALS: BP 110/70; PULSE 105; RESP 18; TEMP 36.8; O2SAT 99
[2025-01-14] MEDS: trazodone 50 mg Tablet PO (21:20)
[2025-01-14] MEDS: ibuprofen 600 mg Tablet PO (21:59)
[2025-01-15 06:00] VITALS: BP 93/56; PULSE 90; RESP 16; TEMP 36.4; O2SAT 95
[2025-01-15] MEDS: buPROPion XL (24 HR) 150 mg Tablet PO (09:22)
[2025-01-15] MEDS: NORGESTIMATE ETHINYL ESTRADIOL 1 EACH PO (10:43)
[2025-01-15 14:00] VITALS: BP 92/57; PULSE 77; RESP 16; O2SAT 97
--- NOTE | 2025-01-15 14:38 | P.NPUPN_ITS ---
Subjective NPU 2 Subjective: Patient presented today reporting that she is feeling okay with the medication. She was somewhat distraught about the UDS being positive. She reports that she has a medical card for the marijuana but denies any use of methamphetamine. She reports that she might of taken some Sudafed saying that any medication that she takes she has received 4. We discussed the fact that we did not suggest she had been using but only expressed concerns that she has a history of methamphetamine use disorder and had a positive UDS for amphetamines. She assured this automobile service writer that she is not used and has been sober for some time. She denied any side effects to the medication. Mental Status Exam 2 MSE Comments: This is a short, overweight versus obese white female in hospital scrubs with limited grooming but adequate eye contact. No abnormal movements except for psychomotor retardation. Cooperative with exam in mild to moderate distress. Speech was decreased rate and volume. Mood described as depressed, affect congruent. Thought process organized. Thought content: Patient endorsed suicidal but denied homicidal ideation, there were no delusions reported or noted, she denied any auditory or visual hallucinations. Attention and concentration appeared intact and memory was mostly reliable but concerns about honesty regarding her current sobriety is present, but no more formally tested. She is alert and oriented x 3. Insight and judgment are limited and impulse control is impaired. Vitals/I&O/Wt Last Vital Signs Temp 97.6 F 01/15/25 06:00 Pulse 90 01/15/25 06:00 Resp 16 01/15/25 06:00 BP 93/56 01/15/25 06:00 Pulse Ox 95 01/15/25 06:00 O2 Del Method Room Air 01/15/25 06:00 Data NPU 01/13/25 13:39 01/13/25 13:39 A&P Assessment and plan (1) Anxiety: (2) Bipolar disorder: (3) Post depression: (4) Depression: (5) Suicidal ideation: (6) Cannabis use disorder: (7) History of methamphetamine use: (8) Positive urine drug screen: Plan This is a 35-year-old white female unknown to inpatient services here at [facility] but known to some outpatient services back in 2017 and then back in 2019 with history of PTSD and bipolar diagnoses and reports of significant depression and fibromyalgia with documented history of amphetamine addiction presenting with a UDS positive for cannabis and amphetamines but in denial of active amphetamine use presenting with a reported depression and being overwhelmed. Plan: 1.? Continue current medication. Initiated Wellbutrin XL 150 mg p.o. daily and discontinue Lexapro. Continue Effexor reportedly for fibromyalgia. 2.? Continue every 15 minute checks for safety. 3.? Encourage individual, group and milieu therapies. 4.? Encourage sober living treatment after discharge at the highest level of care to which he is willing to commit. 5. Obtain collateral information. 6. Evaluate against the backdrop of the 96-hour hold. PDMP PDMP Reviewed: Not Reviewed Involuntary Hold Information 2 Hold Status: Date/Time Hold Expires: Voluntary Attestations NPU 2 Medical Necessity Statement*: Inpatient hospitalization is medically necessary and the clinically appropriate intervention at this time. We will initiate/monitor medications and make changes as indicated. Likely length of stay 3-6 days. Coding Level of Care Code Acute Code for [facility] Fwd Diagnoses Anxiety F41.9 Bipolar disorder F31.9 Post depression F53.0 Depression F32.A Suicidal ideation R45.851 Cannabis use disorder F12.90 History of methamphetamine use F15.91 Positive urine drug screen R82.5
[2025-01-15] MEDS: acetaminophen 325 mg Tablet 650 MG PO (15:25)
[2025-01-15] MEDS: venlafaxine ER (24HR) 75 mg Capsule PO (17:35)
[2025-01-15 20:12] VITALS: BP 113/69; PULSE 96; RESP 18; TEMP 37.3; O2SAT 98
[2025-01-15] MEDS: trazodone 50 mg Tablet PO (21:35)
[2025-01-15] MEDS: OLANZapine 5 mg ODT PO (21:35)
[2025-01-16 06:00] VITALS: BP 90/54; PULSE 72; RESP 16; TEMP 36.8; O2SAT 95
[2025-01-16] MEDS: buPROPion XL (24 HR) 150 mg Tablet PO (09:25)
[2025-01-16] MEDS: NORGESTIMATE ETHINYL ESTRADIOL 1 EACH PO (09:56)
[2025-01-16 14:00] VITALS: BP 105/69; PULSE 78; RESP 16; TEMP 36.7; O2SAT 99
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
[2025-01-16] MEDS: venlafaxine ER (24HR) 75 mg Capsule PO (17:56)
[2025-01-16 20:19] VITALS: BP 102/65; PULSE 80; RESP 16; TEMP 36.8; O2SAT 98
[2025-01-16] MEDS: trazodone 50 mg Tablet PO (21:23)
[2025-01-17 06:00] VITALS: BP 92/58; PULSE 88; RESP 17; TEMP 36.9; O2SAT 95
[2025-01-17] MEDS: NORGESTIMATE ETHINYL ESTRADIOL 1 EACH PO (07:55)
[2025-01-17] MEDS: buPROPion XL (24 HR) 150 mg Tablet PO (07:55)
[2025-01-17] MEDS: hyDROXYzine 25 mg Capsule 50 MG PO (09:29)
--- NOTE | 2025-01-17 09:30 | PC.NURSE ---
PRN VISTARIL 50 MG GIVEN PO PER PT C/O STATED ANXIETY. PATIENT SAID SHE'S ANXIOUS ABOUT GOING HOME, AND ALSO ANXIOUS ABOUT NOT GOING HOME. HAS 5 MONTH OLD SON AT HOME. TOOK MED WITHOUT INCIDENT. WILL CONT TO MONITOR
[2025-01-17 14:00] VITALS: BP 109/70; PULSE 89; RESP 16; TEMP 37.1; O2SAT 98
[2025-01-17] MEDS: venlafaxine ER (24HR) 75 mg Capsule PO (17:38)
[2025-01-17 19:35] VITALS: BP 107/71; PULSE 90; RESP 17; TEMP 36.8; O2SAT 97
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
[2025-01-17 20:24] VITALS: BP 107/71; PULSE 90; RESP 17; TEMP 36.8; O2SAT 97
[2025-01-17 20:28] VITALS: BP 107/71; PULSE 90; RESP 17; TEMP 36.8; O2SAT 97
== END 2025-01-17 20:47 | disposition home or self-care (01) | DRG 776 ==
LOC: ER 16:06 → NP 16:10
PROVIDERS: Admitting Provider Psychiatry & Neurology Psychiatry; Emergency Provider Student in an Organized Health Care Education/Training Program; PCP Family Medicine; Visit Provider Psychiatry & Neurology Psychiatry
DX: O99.345 Other mental disorders complicating the puerperium (principal); R45.851 Suicidal ideations; F53.0 Postpartum depression; O99.215 Obesity complicating the puerperium; O90.89 Other complications of the puerperium, not elsewhere classified; F43.10 Post-traumatic stress disorder, unspecified; F15.21 Other stimulant dependence, in remission; F41.9 Anxiety disorder, unspecified; F12.90 Cannabis use, unspecified, uncomplicated; M79.7 Fibromyalgia; Z88.2 Allergy status to sulfonamides; Z91.040 Latex allergy status; Z86.73 Personal history of transient ischemic attack (TIA), and cerebral infarction without residual deficits; Z87.891 Personal history of nicotine dependence
CPT/HCPCS: 80053; 80306; 80307; 81001; 81025; 85025; 93005; 97150; 97165; 99285; J9999

== ENCOUNTER 2025-02-14 14:21 | Emergency (ER) | payer MEDICAID, SELFPAY ==
--- OUTSIDE RECORDS SUMMARY | 2024-03-08 04:50 | XMS_ITS ---
Author Organization [facility] Address [address] [place], [place] [id number] Care Team Providers Care Associate Professor Of Forestry Name Role Phone Say ATKINSON, Sawyer Primary Care Provider Yan Ritter MD, Zeke Gregory [phone] REASON FOR VISIT Prescription visit Encounters Encounter Location Date Provider Diagnosis [facility] [address] [place], [place] [id number] 03/08/2024 Zeke Emerson Plan Of Treatment No Information Progress Notes * Mateus ENGLISH LDOB:1989 (35 yo F)Acc No.[id number]:03/08/2024 Patient: Mateus KIM Provider: Helena Emerson :1990 A ge:34 Y S ex:Female Date:03/08/2024 Address:[address], [facility] Pcp:Sawyer Deal MD Subjective: * Chief Complaints: * 1 . Prescription visit. * Medical History: Objective: Therapeutic Interventions: Assessment: Plan: * Treatment: * Images: * Electronic signature of Kwaku Emerson MD on 02/14/2025 at 02:43 PM CDT Sign off status: Pending * Provider: Helena Emerson Date: 03/08/2024 Generated for Printi ng/Faxing/eTransmitting on: 02/14/2025 02:43 PM CDT
--- OUTSIDE RECORDS SUMMARY | 2025-02-14 14:44 | XMS_ITS | Clinical Summary ---
Author Organization [employer] Address [address] [facility] Attn: Epic Prelude ADT [place] [address] Care Team Providers Care Anesthesiology Teacher Name Role Phone Serjio Gonsalves MD Primary Care Provider [phone] Allergies Active Allergy Reactions Criticality Noted Date Comments Amoxicillin Rash Low 08/25/2010 Codeine Rash Low 08/25/2010 Iodine Swelling Low 08/18/2019 Latex Swelling Low 08/25/2010 Sulfa (Sulfonamide Antibiotics) Rash Low 11/2010 Family History Medical History Relation Name Comments Heart Disease Father Stroke Father Heart Disease Mother Stroke Mother Relation Name Status Comments Father Mother Social History Tobacco Use Types Packs/Day Years Used Date Smoking Tobacco: Former Cigarettes Q uit: 10/22/2009 Smokeless Tobacco: Current Alcohol Use Standard Drinks/Week Comments Not Currently 0 (1 standard drink = 0.6 oz pur e alcohol) Comments Unknown Sex and Gender Information Value Date Recorded Sex Assigned at Not on file Legal Sex Female 10:40 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 Gender Identity Not on file Sexual Orientation Not on file Last Filed Vital Signs Vital Sign Reading Time Taken Comments Blood Pressure 108/59 08/18/2019 9:17 PM CARRY OUT CLERK AND SHELF STOCKER Pulse - - Temperature 37 C (98.6 F) 08/18/2019 9:17 PM CARRY OUT CLERK AND SHELF STOCKER Respiratory Rate 16 08/18/2019 9:17 PM CARRY OUT CLERK AND SHELF STOCKER Oxygen Saturation - - Inhaled Oxygen Concentration - - Weight 51 kg (112 lb 6.4 oz) 08/18/2019 9:17 PM CARRY OUT CLERK AND SHELF STOCKER Height 147.3 cm (4' 10 ) 08/18/2019 9:17 PM CARRY OUT CLERK AND SHELF STOCKER Body Mass Index 23.49 08/18/2019 9:17 PM CARRY OUT CLERK AND SHELF STOCKER Plan of Treatment Health Maintenance Due Date Last Done Comments DTAP/TDAP/TD VACCINES (1 - Tdap) 01/08/2011 HEPATITIS B VACCINES (1 of 3 - 19+ 3-dose series) 01/08/2011 HPV/Cotest (21-29) 01/08/2013 CERVICAL CANCER SCREENING 01/08/2022 HPV/Cotest (30-65) 01/08/2022 PAP SMEAR 01/08/2022 INFLUENZA VACCINE (#1) 2024 HPV VACCINES Aged Out No longer eligi ble based on patient's age to complete this topic Insurance [facility] [employer] MEDICAID Care Teams Anesthesiology Teacher Relationship Specialty Start Date End Date Serjio Gonsalves MD [address] [address] PCP - General Family Practice 08/25/10
--- OUTSIDE RECORDS SUMMARY | 2025-02-14 14:44 | XMS_ITS | Patient Health Record ---
Author Organization [facility] Address [address] [place], [place] [id number] Care Team Providers Care Crusher And Binder Operator Name Role Phone Say ATKINSON, Sawyer Primary Care Provider Unavailab Riya ATKINSON, Zeke Unavailable [phone] Allergies Allergen (clinical drug ingredient) Drug/Non Drug Allergy documented on EMR Reaction Allergy Type Onset Date Status iodine (uncoded) rash Allergy Act judson Latex latex (uncoded) rash Allergy Acti ve povidone-iodine povidone-iodine (uncoded) swelling Allergy Active soap (from betadine) (uncoded) swelling Allergy Active sulfa (uncoded) rash Allergy Acti ve codeine codeine rash Drug Allergy Inactiv e amoxicillin amoxicillin rash Drug Allergy Dorene ctive morphine morphine Unknown Drug Allergy Inactiv e Reason For Referral No Information Medications Medication SIG (Take, Route, Frequency, Duration) Notes Start Date End Date Status acetaminophen-hydrocodo ne 325 mg-5 mg 1/2 - 1 tab orally Q4-6H prn pain (max 2/day; hold within 4H of planned sleep) for 28 days Do not fill prior to 02/14/24. ICD-10: G89.29 01/12/2024 Active acetaminophen-hydrocodo ne 325 mg-5 mg 1/2 - 1 tab orally Q4-6H prn pain (max 2/day; hold within 4H of planned sleep) for 21 days Do not fill prior to 01/24/24. ICD-10: G89.29 01/12/2024 Active magnesium oxide 400 mg 1 cap(s) orally o nce a day Active ibuprofen 800 mg 1 tab orally Q8H prn pain; take with food Active venlafaxine 75 mg 1 cap(s) orally once a day for 30 day(s) Active Tylenol Extra Strength 500 mg 1 tab(s) orally 1 X PRN Active Narcan 4 mg/0.1 mL 1 spray(s) intranasally once Active Multivitamins Multivitamins with Folic Acid 0.8 mg 1 tab(s) orally once a day for 30 day(s) Active AZO Urinary Tract Defense 162 mg-162.5 mg 2 tab(s) orally 3 times a day Active amitriptyline 25 mg 1 tab(s) orally once a day (at bedtime) for 30 day(s) Active chlorhexidine topical 0.12% 15 mL orally 2 times a day for 30 day(s) Active acetaminophen-hydrocodo ne 325 mg-5 mg 1/2 - 1 tab orally Q4-6H prn pain (max 2/day; hold within 4H of planned sleep) for 7 days Do not fill prior to 01/17/24. ICD-10: G89.29 01/12/2024 Active Social History Tobacco Use: Social History Observation Description Date Details (start date - stop date) Former Smoker NA - NA alcohol Question Answer Notes Did you have a drink contain ing alcohol in the past year? Yes How often did you have a dri nk containing alcohol in the past year? Monthly or less (1 point) How many drinks did you have on a typical day when you were drinking in the past year? 1 or 2 (0 points) How often did you have six o r more drinks on one occasion in the past year? Never (0 points) Points 1 Interpretation Negative Tobacco use: Question Answer Notes : former smoker When did you stop smoking? 2020 Problems Problem Type SNOMED Code ICD Code Onset Dates Problem Status W/U Status Risk Notes Problem High risk drug monitoring status (452485159) assisted (current) use of opiate analgesic (Z79.891) Active confirmed Problem Hypersomnia (86758435) Hypersomnia, unspecified (G47.10) Active confirmed Problem Chronic pain (89692077) Other chronic pain (G89.29) Active confirmed Problem Cervicalgia (67500326) Cervicalgia (M54.2) Active confirmed Problem Fibromyalgia (007842843) Fibromyalgia (M79.7) Active confirmed Problem Long-term current use of drug therapy (069390863) Other prison (current) drug therapy (Z79.899) Active confirmed Plan Of Treatment No Information Insurance Providers Payer Name Payer Address Payer Phone Subscriber Number Group Number Insured Name Patient Relationship to Insured Coverage Start Date Coverage End Date HOME [facility] ATTN CLAIMS [address] [place] [phone] [id number] Mateus English Self - patient is the insured Medical (General) History Medical History History ICD Code Chronic pain Neck pain Migraines / headaches Fibromyalgia Joint issues Asthma Bipolar disorder (anxiety and depression ) MDD Endometriosis Transient ischemic attack Meth abuse (2020) Marijuana use (as noted) Sleep disorder with snoring and hypersom sachin Obesity, mild Surgical History Surgery Date(Month/Year) Tonsillectomy and adenoidectomy Tubal ligation, performed at [facility] by Dr. Kearns Repair of ear drum, right, performed by Dr. Lopez Cholecystectomy, performed at [facility], 2010 Appendectomy, performed at [facility], 2014 Exploratory laparotomy, performed at [facility] in [place], [place], 2019 Tubal ligation reversal, performed in [facility] by Dr. Pan, 2020
--- OUTSIDE RECORDS SUMMARY | 2025-02-14 14:44 | XMS_ITS | Patient Health Record ---
Author Organization [facility] Address [address] [place] [address] Care Team Providers Care Underwriting Clerk Name Role Phone Javier Epps Primary Care Provider [phone] Allergies Allergen (clinical drug ingredient) Drug/Non Drug Allergy documented on EMR Reaction Allergy Type Onset Date Status povidone-iodine Povidone-Iodine Prep Unknown Drug Allergy Active codeine Codeine Unknown Drug Allergy Active Latex Latex Unknown Allergy Active morphine Morphine Unknown Drug Allergy Active Substance with sulfonamide structure and antibacterial mechanism of action (substance) Sulfa Antibiotics Unknown Drug Allergy Active Reason For Referral No Information Medications Medication SIG (Take, Route, Frequency, Duration) Notes Start Date End Date Status Naproxen 250 MG Tablet 1 tablet with zenia d or milk Orally Twice a day Active Not-Taking /PRN Phenagil 3.5-10 MG Tablet 1 tablet as needed Orally every 6 hrs Not-Taking/NH N Zithromax Z-Jose Francisco Not- Taking/PRN Social History Sex Assigned At : Social History Observation Description Sex Assigned At Female Plan Of Treatment No Information Insurance Providers Payer Name Payer Address Payer Phone Subscriber Number Group Number Insured Name Patient Relationship to Insured Coverage Start Date Coverage End Date [facility] [address] [place] [phone] [id number] Mateus English Self - patient is the insured [employer] [address] [address] [place] [phone] [id number] Mateus English Self - patient is the insured Medical (General) History Medical History History ICD Code Seasonal allergies Asthma Sinus trouble Concussion fever blister possibly lupus
[2025-02-14 14:47] VITALS: BP 114/81; PULSE 99; TEMP 37.1; O2SAT 96; BMI 29.0
--- NOTE | 2025-02-14 16:34 | USR_ITS ---
PROCEDURE INFORMATION: Exam: US Pelvis Transabdominal, Limited, and US Pelvis Transvaginal, Non-Obstetric Exam date and time: 02/14/2025 4:54 PM Age: 35 years old Clinical indication: Pelvic pain; Additional info: Vaginal bleeding, pain, TECHNIQUE: Imaging protocol: Real-time transabdominal and transvaginal pelvic ultrasound (non-obstetric) with image documentation. Transabdominal imaging is limited. Transvaginal imaging was used for better evaluation of the endometrium, adnexa, and/or cervix. COMPARISON: US transvaginal [id number] 07/26/2023 10:27 AM FINDINGS: Uterus: Uterus is normal. Endometrial stripe is 1 cm in thickness which is within normal limits. Right ovary/adnexa: Normal. No mass. Normal ovarian blood flow on color Doppler. Left ovary/adnexa: Normal. No mass. Normal ovarian blood flow on color Doppler. Urinary bladder: Urinary bladder is limited. Intraperitoneal space: No free fluid. US/US pelvis lmt w transvag IMPRESSION: No acute findings.
--- NOTE | 2025-02-14 16:43 | PC.PHAR ---
Pt states Venlafaxine 75mg replaces Escitalopram 10mg.
[2025-02-14 17:34] LABS: Basophils % 0.6 %; Eosinophils # 0.1 10^3/uL (0.0-0.8); Eosinophils % 1.2 %; Hematocrit 41.7 % (36-47); Lymphocytes # 1.7 10^3/uL (0.8-4.8); Lymphocytes % 24.8 %; Mean Corpuscular HGB Conc 33.1 g/dL (30-55); Mean Corpuscular Hemoglobin 29.8 pg (27-33); Mean Corpuscular Volume 90.1 fl (85-98); Mean Platelet Volume 9.5 fL (7.4-10.4); Monocytes # 0.3 10^3/uL (0.2-0.9); Neutrophils # 4.65 10^3/uL (1.8-7.7); Neutrophils % 68.3 %; Nucleated Red Blood Cells % 0 %; Platelet Count 246 10^3/cmm (157-399); Red Blood Count 4.63 10^6/uL (3.85-5.65); Red Cell Distribution Width 11.3 % (12.1-15.1); White Blood Count 6.81 10^3/uL (3.29-11.43)
--- NOTE | 2025-02-14 17:41 | ED_ITS ---
HPI - Abdominal Pain 2 General: Chief Complaint: Abdominal Pain Stated Complaint: low back pain,vag bleeding,swollen belly Time Seen by Provider: 02/14/25 16:27 History of Present Illness: 35 female with history of endometriosis who presents to the ED with complaints of abnormal uterine bleeding, lower abdominal pain, bloating, and dizziness. Patient reports that she has been bleeding almost continuously since December 2024, stating 'I've done more bleeding than I have not.' She describes that sometimes the bleeding is heavy, comparable to when she previously had a miscarriage, while other times it's just spotting daily. Prior to December, patient reports having regular menstrual cycles in September, October, and November following childbirth. Patient also complains of associated symptoms including lower back pain, severe migraines, and dizziness. She recently had an abnormal Pap smear in September 2024. Patient reports that her primary care provider recently changed her medications because she is no longer , but notes that these bleeding issues began prior to the medication change. Patient has attempted to schedule an appointment with gynecology but reports difficulty getting an appointment within a reasonable timeframe. Related Data Home Medications ?Medication ?Instructions ?Recorded ?Confirmed acetaminophen 500 mg tablet 1,000 mg PO Q6H PRN Pain 0 01/20/23 02/14/25 Previous Rx's ?Medication ?Instructions ?Recorded bupropion HCl 150 mg 24 hr tablet, 150 mg PO DAILY #90 tabs 02/05/25 extended release hydroxyzine pamoate 25 mg capsule 50 mg (2 x 25 mg) PO Q6H PRN 02/05/25 Anxiety #90 caps norethindrone 1 mg-ethinyl 1 tab PO DAILY #84 tabs estradiol 20 mcg (21)-iron 75 mg (7) tablet (09/10 (28)) trazodone 50 mg tablet 50 mg PO BEDTIME PRN Sleep # 90 tabs 02/05/25 venlafaxine 75 mg capsule,extended 75 mg PO QPM #90 ca ps 02/05/25 release 24 hr Allergies Allergy/AdvReac Type Severity Reaction Status Date / Time morphine Allergy Intermediate Unknown Verified 02/14/25 14:52 iodine Allergy ALGY-Rash Verified 02/14/25 14:52 Latex, Natural Rubber Allergy ALGY-Rash Verified 02/14/25 14:52 povidone-iodine (From Allergy swelling Verified 02/14/25 14:52 Betadine) soap (From Betadine) Allergy swelling Verified 02/14/25 14:52 Sulfa (Sulfonamide Allergy ALGY-Rash Verified 02/14/25 14:52 Antibiotics) PFSH ED 2 PFSH: Medical History History of drug use Heavy menstrual bleeding No pertinent past medical history neghx: htn,dm,thyroid,dvt/pe PCP: Dr. Sawyer Deal Bipolar disorder Anxiety TIA (transient ischemic attack) Surgical History History of tonsillectomy and adenoidectomy History of reversal of tubal ligation (~2020) History of tubal ligation (~2013) Hx of appendectomy History of cholecystectomy Family History Grandfather Cancer skin cancer Hyperlipidemia maternal Hypertension maternal Heart disease maternal Mother Diabetes Hyperlipidemia Stroke Heart disease Father Stroke Heart disease Other CAD (coronary artery disease) Clotting disorder Dementia Lung disease Psychiatric illness Denies family history of Colon cancer Ovarian cancer Chronic kidney disease (CKD) Breast cancer Anesthesia complication Bleeding disorder Uterine cancer Thyroid disease Social History Smoking and tobacco/nicotine status: former use of tobacco/nicotine Physical Exam 2 Const: COMMON NORMALS: no acute distress, patient oriented x3 and alert G ENERAL APPEARANCE: cooperative ORIENTATION/CONSCIOUSNESS: Yes awake, Yes oriented to person, Yes oriented to place and Yes oriented to time HENMT: COMMON NORMALS: normocephalic, atraumatic, external ears normal, Normal external nose present and moist oral mucous membranes HEAD & SCALP: normal to inspection, normocephalic and atraumatic NOSE: Normal external nose present GENERAL EAR: hearing grossly impaired EXTERNAL EAR: Yes external ears normal Eye: COMMON NORMALS: Equal, round and reactive pupils present, EOMs intact bilaterally, conjunctivae normal and no scleral icterus GENERAL EYE: a ppearance normal, both eyes and all related structures EYELID: eyelids normal CONJUNCTIVA: Yes conjunctivae normal SCLERA: sclerae normal PUPIL: Yes Equal, round and reactive pupils present Neck/C-Spine: COMMON NORMALS: full ROM, supple and no JVD GENERAL: Yes normal visual inspection Lymph: LYMPHATIC: no lymphadenopathy noted and no lymphedema noted Chest: COMMONS NORMALS: normal inspection of the chest Resp: COMMON NORMALS: normal respiratory effort, No retractions and No use of accessory muscles Cardio: COMMON NORMALS: no JVD, regular rate and regular rhythm RATE: r egular rate RHYTHM: regular rhythm GI: COMMON NORMALS: Normal to inspection, nondistended, normoactive bowel sounds present : COMMON NORMALS: Yes no CVA tenderness BLADDER/KIDNEY EXAM: Yes no CVA tenderness Back/Pelvis: COMMON NORMALS: no CVA tenderness and thoracic and lumbar spine normal to inspection Extremity: COMMON NORMALS: normal to inspection, full ROM and capillary refill normal GENERAL: Yes normal exam except as noted Neuro: COMMON NORMALS: patient oriented x3, CN's II-XII intact bilaterally, moves all extremities, no focal motor deficits, no sensory deficits noted and gait normal SENSORIUM/ORIENTATION: Yes alert, Yes oriented to person, Yes oriented to place and Yes oriented to time Psych: COMMON NORMALS: mental status grossly normal, Normal thought process present, cooperative and normal affect THOUGHT PROCESS: Normal thought process present Skin: COMMON NORMALS: no rashes or lesions noted and no wounds GENERAL SKIN EXAM: no rashes or lesions noted Course 2 Vital Signs: Vital signs: Vital Signs Temperature 98.7 F 02/14/25 14:47 Pulse Rate 68 02/14/25 18:32 Respiratory Rate 16 02/14/25 18:32 Blood Pressure 96/57 02/14/25 18:32 Pulse Oximetry 98 02/14/25 18:32 Oxygen Delivery Me thod Room Air 02/14/25 18:32 MDM - Abdominal Pain Medical Decision Making Summary Statement: 35- female with history of endometriosis presenting with abnormal uterine bleeding since December 2024, associated with lower abdominal pain, back pain, migraines, and dizziness. Patient recently had an abnormal Pap smear in September 2024. Problem List: 1. Abnormal uterine bleeding 2. Endometriosis 3. Abdominal and back pain 4. Migraines 5. Dizziness 6. Recent abnormal Pap smear Differential Diagnosis: 1. Endometriosis flare 2. Dysfunctional uterine bleeding 3. Hormonal imbalance 4. Uterine fibroids (though not seen on ultrasound) 5. Cervical pathology related to abnormal Pap smear 6. Anemia secondary to blood loss 7. Medication side effect ED Course: Patient had blood drawn for CBC, electrolytes, and renal function. Pelvic ultrasound was performed and showed normal findings with no thickened endometrium. Awaiting lab results to determine if anemia is present and if further interventions are needed during this ED visit. CBC is unremarkable.Pelvic US is unremarkable.I recommended she follow upwith gynecology. Lab Data 02/14/25 17:29 02/14/25 17:29 Labs/Radiology: Radiology Impressions Pelvic/Transvag US 02/14/25 16:34 IMPRESSION: No acute findings. Laboratory Results WBC 6.81 10^3/uL (3.29-11.43) 02/14/25 17: RBC 4.63 10^6/uL (3.85-5.65) 02/14/25 17: Hgb 13.80 g/dL (11.27-16.99) 02/14/25 17: Hct 41.7 % (36-47) 02/14/25 17: MCV 90.1 fl (85-98) 02/14/25 17: MCH 29.8 pg (27-33) 02/14/25 17: MCHC 33.1 g/dL (30-55) 02/14/25 17: RDW 11.3 % (12.1-15.1) L 02/14/25 17: Plt Count 246 10^3/cmm (157-399) 02/14/25 17: MPV 9.5 fL (7.4-10.4) 02/14/25 17: Neut % (Auto) 68.3 % 02/14/25 17: Lymph % (Auto) 24.8 % 02/14/25 17:29 Owen % (Auto) 5.0 % 02/14/25 17: Eos % (Auto) 1.2 % 02/14/25 17: Baso % (Auto) 0.6 % 02/14/25: Neut # (Auto) 4.65 10^3/uL (1.8-7.7) 02/14/25 17: Lymph # (Auto) 1.7 10^3/uL (0.8-4.8) 02/14/25 17: Owen # (Auto) 0.3 10^3/uL (0.2-0.9) 02/14/25 17:29 Eos # (Auto) 0.1 10^3/uL (0.0-0.8) 02/14/25 17: Baso # (Auto) 0.0 10^3/uL (0.0-0.1) 02/14/25 17:29 Nucleated RBC % (auto) 0 % 02/14/25 17: Nucleated RBCs # 0.0 /100WBC 02/14/25 17: Sodium 139 mmol/L (136-145) 02/14/25 17: Potassium 3.7 mmol/L (3.5-5.1) 02/14/25 17: Chloride 103 mmol/L (98-107) 02/14/25 17: Carbon Dioxide 23 mmol/L (22-29) 02/14/25 17: Anion Gap 16.7 (5-19) 02/14/25 17: BUN 8 mg/dL (6-20) 02/14/25 17: Creatinine 0.6 mg/dL (0.5-0.9) 02/14/25 17: GFR Calculation 115.1 mL/min (90-130) 02/14/25 17: Glucose 87 mg/dL (65-115) 02/14/25 17: Calculated Osmolality 286 mOsm/kg (285-295) 02/14/25 17: Lactic Acid 0.7 mmol/L (0.5-2.2) 02/14/25 17: Calcium 9.0 mg/dL (8.5-10.5) 02/14/25 17: Total Bilirubin 0.3 mg/dL (0.15-1.2) 02/14/25 17: AST 24 U/L (0-32) 02/14/25 17: ALT 29 U/L (0-33) 02/14/25 17: Alkaline Phosphatase 96 U/L (35-105) 02/14/25 17: Total Protein 7.3 g/dL (6.6-8.7) 02/14/25 17: Albumin 4.2 g/dL (3.5-5.2) 02/14/25 17: Globulin 3.1 g/dL (1.3-4.6) 02/14/25 17:29 Lipase 17 U/L (13-60) 02/14/25 17:29 HCG, Qual Negative (Negative) 02/14/25 17:29 Urine Color Yellow (Yellow) 02/14/25 16:00 Urine Appearance Clear (CLEAR) 02/14/25 16:00 Urine pH 5.5 (5-7) 02/14/25 16:00 Ur Specific [place] 1.025 (1.005-1.030) 02/14/25 16:00 Urine Protein Trace (Negative) A 02/14/25 16:00 Urine Glucose (UA) Negative (Normal) 02/14/25 16:00 Urine Ketones Trace (Negative) 02/14/25 16:00 Urine Blood 1+ (Negative) A 02/14/25 16:00 Urine Nitrate Negative (Negative) 02/14/25 16:00 Urine Bilirubin Negative (Negative) 02/14/25 16:00 Urine Urobilinogen 1.0 mg/dL (Negative) 02/14/25 16:00 Ur Leukocyte Esterase Trace (Negative) A 02/14/25 16:00 Urine RBC 0-2 /hpf (0-2) 02/14/25 16:00 Urine WBC 0-5 /hpf (0-5) 02/14/25 16:00 Ur Squamous Epith Cells 0-5 /hpf (0-5) 02/14/25 16:00 Amorphous Sediment Not Reportable 02/14/25 16:00 Urine Bacteria None seen /hpf (NONE) 02/14/25 16:00 Hyaline Casts 3.71 /lpf 02/14/25 16:00 All radiology interpretation(s) finalized by discharge Discharge Plan Discharge Patient Disposition: Home Clinical Impression: DUB (dysfunctional uterine bleeding) Condition: Stable Prescriptions: No Action venlafaxine 75 mg capsule,extended release 24hr 75 mg PO QPM Qty: 90 1RF trazodone 50 mg tablet 50 mg PO BEDTIME PRN (Reason: Sleep) Qty: 90 1RF hydroxyzine pamoate 25 mg capsule 50 mg PO Q6H PRN (Reason: Anxiety) Qty: 90 1RF bupropion HCl 150 mg tablet extended release 24 hr 150 mg PO DAILY Qty: 90 1RF norethindrone-e.estradiol-iron [Junel FE 09/10 (28)] 1 mg-20 mcg (21)/75 mg (7) tablet 1 tab PO DAILY Qty: 84 1RF acetaminophen 500 mg Tablet 1,000 mg PO Q6H PRN (Reason: Pain) Discharge Orders: Discharge ED (Routine); Ordered 02/14/25 Ordered By: Mickey Ross Referrals: Sawyer Deal MD [Primary Care Provider, [facility]] Discharge Diet: Advance as tolerated Discharge Activity: Resume usual activity Patient Instructions: Abnormal (Dysfunctional) Uterine Bleeding (ED), Patient Portal & Lenora Instructions Print Language: Vincentian Coding Level of Care Code ED Retail Custodial Associate for Janiya Summers
[2025-02-14 17:55] LABS: Alanine Aminotransferase 29 U/L (0-33); Albumin Level 4.2 g/dL (3.5-5.2); Alkaline Phosphatase 96 U/L (35-105); Anion Gap 16.7 (5-19); Aspartate Amino Transferase 24 U/L (0-32); Blood Urea Nitrogen 8 mg/dL (6-20); Carbon Dioxide 23 mmol/L (22-29); Chloride 103 mmol/L (98-107); Globulin 3.1 g/dL (1.3-4.6); Glomerular Filtration Rate 115.1 mL/min (90-130); Glucose 87 mg/dL (65-115); Lactic Sepsis W/Reflex 0.7 mmol/L (0.5-2.2); Lipase 17 U/L (13-60); Osmolality Calculated 286 mOsm/kg (285-295); Potassium 3.7 mmol/L (3.5-5.1); Sodium 139 mmol/L (136-145); Total Bilirubin 0.3 mg/dL (0.15-1.2); Total Protein 7.3 g/dL (6.6-8.7)
[2025-02-14 18:05] LABS: Bilirubin Urine Negative (Negative); Blood Urine 1+ (Negative); Glucose Urine UA Negative (Normal); Ketones Urine Trace (Negative); Leukocyte Esterase Urine Trace (Negative); Nitrate Urine Negative (Negative); Protein Urine Trace (Negative); Specific Gravity, Urine 1.025 (1.005-1.030); Urine Appearance Clear (CLEAR); Urine Color Yellow (Yellow); pH Urine 5.5 (5-7)
[2025-02-14 18:10] LABS: Add Urine Microscopic? YES; Bacteria Urine None Seen /hpf; Hyaline Casts Urine 3.71 /lpf; RBC Urine 0-2 /hpf (0-2); Squamous Epithelial Cell Urine 0-5 /hpf (0-5); WBC Urine 0-5 /hpf (0-5)
[2025-02-14 18:21] LABS: HCG, Serum Qual Negative (Negative)
[2025-02-14 18:23] LABS: Add Urine Culture? No
[2025-02-14 18:32] VITALS: BP 96/57; PULSE 68; RESP 16; O2SAT 98
[2025-02-14 19:00] VITALS: BP 120/69; PULSE 90; O2SAT 98
== END 2025-02-14 19:01 | disposition home or self-care (01) ==
PROVIDERS: Emergency Provider Emergency Medicine; PCP Family Medicine
DX: N93.8 Other specified abnormal uterine and vaginal bleeding (principal); Z87.891 Personal history of nicotine dependence; Z86.73 Personal history of transient ischemic attack (TIA), and cerebral infarction without residual deficits
CPT/HCPCS: 36415; 76830; 76857; 80053; 81001; 83605; 83690; 84703; 85025; 99284

== ENCOUNTER → 2025-02-25 14:35 | Outpatient (BNVA) | payer MEDICAID, SELFPAY | PROVIDERS: PCP Family Medicine; Visit Provider Obstetrics & Gynecology | DX: Z12.4 Encounter for screening for malignant neoplasm of cervix (principal) | CPT/HCPCS: 87624 ==

== ENCOUNTER → 2025-04-08 16:02 | Outpatient (BNVA) | payer MEDICAID, SELFPAY | PROVIDERS: PCP Family Medicine; Visit Provider Family Medicine | DX: R82.5 Elevated urine levels of drugs, medicaments and biological substances (principal) | CPT/HCPCS: 80307 ==

== ENCOUNTER → 2025-04-09 09:09 | Outpatient (BNVA) | payer MEDICAID, SELFPAY | PROVIDERS: PCP Family Medicine; Visit Provider Family Medicine | DX: Z01.818 Encounter for other preprocedural examination (principal) | CPT/HCPCS: 80053; 85007; 85027 ==

== ENCOUNTER 2025-04-23 10:05 | Inpatient (IN) | payer MEDICAID, SELFPAY ==
[2025-04-23] VITALS (20 sets, daily range): BP systolic 102–129; BP diastolic 61–97; PULSE 84–102; RESP 10–27; TEMP 36.4–36.7; O2SAT 90–97
--- NOTE | 2025-04-23 02:34 | P.HP_ITS ---
Same Day Surgery H&P Indication for Procedure/HPI DATE OF PROCEDURE: April 23, 2025 CHIEF COMPLAINT/INDICATIONFOR SURGICAL PROCEDURE: menorrhagia, dysmenorrhea PREOP DIAGNOSIS: menorrhagia, dysmenorrhea PLANNED PROCEDURE: Operation Date: 04/23/25 07:00 Proposed Procedures p Total Abdominal Hysterectomy 80283, N94.6, R10.2(Not Applicable) - Keith Brannon MD s Salpingo Oophorectomy (Open)(Bilateral) - Keith Brannon MD Medications/Allergies* Home Medications ?Medication ?Instructions ?Recorded ?Confirmed ?Type acetaminophen 500 mg tablet 1,000 mg PO Q6H PRN Pain 0 01/20/23 04/18/25 History norethindrone acetate 1 mg-ethinyl 1 tab PO DAILY 01/2204/18/25 History estradiol 20 mcg tablet (Caio) ibuprofen 800 mg tablet (IBU) 800 mg PO Q4-5H 04/09/25 04/18/25 History Allergies/Adverse Reactions Allergy/AdvReac Type Severity Reaction Status Date / Time morphine Allergy Intermediate Unknown Verified 04/18/25 09:13 iodine Allergy ALGY-Rash Verified 04/14/25 11:11 Latex, Natural Rubber Allergy ALGY-Rash Verified 04/14/25 11:11 povidone-iodine (From Allergy swelling Verified 04/14/25 11:11 Betadine) soap (From Betadine) Allergy swelling Verified 04/14/25 11:11 Sulfa (Sulfonamide Allergy ALGY-Rash Verified 04/14/25 11:11 Antibiotics) Pertinent History/Comorbid Conditions* Medical History (Updated 02/28/25 @ 14:28 by Laurel Palma NP) Supervision of other high-risk History of drug use Heavy menstrual bleeding No pertinent past medical history neghx: htn,dm,thyroid,dvt/pe PCP: Dr. Sawyer Deal Bipolar disorder Anxiety TIA (transient ischemic attack) Surgical History (Updated 01/25/24 @ 13:10 by Patricia Davila APN, SILVERIO) History of tonsillectomy and adenoidectomy History of reversal of tubal ligation (~2020) History of tubal ligation (~2013) Hx of appendectomy History of cholecystectomy Family History (Updated 01/05/23 @ 08:52 by Earlene Keila, MEDICAL DIRECTOR OCCUPATIONAL HEALTH) Diabetes Mother CAD (coronary artery disease) Clotting disorder Dementia Heart disease Grandfather maternal Mother Father Hyperlipidemia Grandfather maternal Mother Psychiatric illness Lung disease Cancer Grandfather skin cancer Hypertension Grandfather maternal Stroke Mother Father Denies family history of Colon cancer Ovarian cancer Chronic kidney disease (CKD) Breast cancer Anesthesia complication Bleeding disorder Uterine cancer Thyroid disease Social History Smoking and tobacco/nicotine status: never used tobacco/nicotine Pertinent Exam Findings alert, oriented x 3, clear to auscultation bilaterally and regular rate & rhythm Recommendations Surgery/Procedure today Coding Level of Care Code Acute Code for Chg Kristopher
[2025-04-23 06:22] LABS: Hematocrit 39.6 % (36-47); Hemoglobin 13.60 g/dL (11.27-16.99); Mean Corpuscular HGB Conc 34.3 g/dL (30-55); Mean Corpuscular Hemoglobin 30.6 pg (27-33); Mean Corpuscular Volume 89.2 fl (85-98); Nucleated Red Blood Cells % 0 %; Platelet Count 299 10^3/cmm (157-399); Red Blood Count 4.44 10^6/uL (3.85-5.65); White Blood Count 5.69 10^3/uL (3.29-11.43)
[2025-04-23 06:25] LABS: OR HCG Qualitative Urine Negative (Negative)
--- NOTE | 2025-04-23 06:54 | W.PM.OPSUD ---
Surgery/Procedure H&P Update DATE OF PROCEDURE: April 23, 2025 DATE H&P PERFORMED: 04/23/25 H&P UPDATE INFORMATION: I have reviewed H&P completed within last 30 days, I have examined patient prior to procedure and No changes to prior documentation PREOP DIAGNOSIS: menorrhagia PLANNED PROCEDURE: Operation Date: 04/23/25 07:00 Proposed Procedures p Total Abdominal Hysterectomy 68009, N94.6, R10.2(Not Applicable) - Keith Brannon MD s Salpingo Oophorectomy (Open)(Bilateral) - Keith Brannon MD
--- NOTE | 2025-04-23 07:01 | P.ANESASSM_ITS ---
Pre-Anesthetic Assessment Height/Weight: Height 1.47 m Weight 60.781 kg Temp Pulse Resp BP Pulse Ox O2 Del Method 97.9 F 84 18 108/97 97 Room Air 04/23/25 06:05 04/23/25 06:05 04/23/25 06:05 04/23/25 06:05 04/23/25 06:05 04/23/25 06:05 Preop Diagnosis: menorrhagia Operation Date: 04/23/25 07:00 Proposed Procedures p Total Abdominal Hysterectomy 02960, N94.6, R10.2(Not Applicable) - Keith Brannon MD s Salpingo Oophorectomy (Open)(Bilateral) - Keith Brannon MD Familial anesthetic complications: PONV, Combativeness upon wakening Was Beta Arie taken within 24 hours: N/A Was Clonidine taken within 24 hours: N/A Last intake: Intake Last Liquid Date 04/22/25 Last Liquid Time 23:45 Last Solid Date 04/22/25 Last Solid Time 22:30 Social No alcohol and No tobacco Exam alert, oriented x 3, clear to auscultation bilaterally and regular rate & rhythm Airway Mallampati: Class II Musc/skel Fibromyalgia Anesthetic Plan ASA status: 2 Anesthesia: General Risk of > 500 ml blood loss (7ml/kg in children): No Medications/Allergies Home Medications ?Medication ?Instructions ?Recorded ?Confirmed ?Last Taken ?Type acetaminophen 500 mg tablet 1,000 mg PO Q6H PRN Pain 0 01/20/23 04/23/25 Unknown History bupropion HCl 150 mg 24 hr tablet, 150 mg PO DAILY #90 tabs 02/05/25 04/23/25 04/23/25 Rx extended release hydroxyzine pamoate 25 mg capsule 50 mg (2 x 25 mg) PO Q6H PRN 02/05/25 04/23/25 Unknown Rx Anxiety #90 caps trazodone 50 mg tablet 50 mg PO BEDTIME PRN Sleep # 90 tabs 02/05/25 04/23/25 Unknown Rx venlafaxine 75 mg capsule,extended 75 mg PO QPM #90 ca ps 02/05/25 04/23/25 04/23/25 Rx release 24 hr norethindrone acetate 1 mg-ethinyl 1 tab PO DAILY 01/2204/23/25 04/22/25 History estradiol 20 mcg tablet (Caio) mupirocin 2 % topical ointment 1 applic topical BID #2 2 grams 03/09/25 04/23/25 Unknown Rx (Centany) ibuprofen 800 mg tablet (IBU) 800 mg PO Q4-5H 04/09/25 04/23/25 04/13/25 History amoxicillin 875 mg-potassium 1 tab PO BID 5 days #10 t abs 04/14/25 04/18/25 04/18/25 Rx clavulanate 125 mg tablet jjyrcuzh-zbeitifke-iwaxrrge 3.5 2 drp ophthalmic (eye) QID 7 days 04/14/25 04/23/25 Unknown Rx mg/mL-10,000 unit/mL-0.1% eye #5 mL drops (Maxitrol) Allergies Allergy/AdvReac Type Severity Reaction Status Date / Time morphine Allergy Intermediate Unknown Verified 04/18/25 09:13 iodine Allergy ALGY-Rash Verified 04/14/25 11:11 Latex, Natural Rubber Allergy ALGY-Rash Verified 04/14/25 11:11 povidone-iodine (From Allergy swelling Verified 04/14/25 11:11 Betadine) soap (From Betadine) Allergy swelling Verified 04/14/25 11:11 Sulfa (Sulfonamide Allergy ALGY-Rash Verified 04/14/25 11:11 Antibiotics) Current Medications Generic Name Dose Route Start Last Admin Trade Name Freq PRN Reason Stop Dose Admin Sodium Chloride 1,000 mls @ 30 mls/hr 04/23/25 06:00 04/23/25 06:12 Sodium Chloride 0.9% IV 04/24/25 05:59 30 mls/hr .Q24H ANTOINE Administration PFSH Anesthesia Medical History Supervision of other high-risk History of drug use Heavy menstrual bleeding No pertinent past medical history neghx: htn,dm,thyroid,dvt/pe PCP: Dr. Sawyer Deal Bipolar disorder Anxiety TIA (transient ischemic attack) Surgical History History of tonsillectomy and adenoidectomy History of reversal of tubal ligation (~2020) History of tubal ligation (~2013) Hx of appendectomy History of cholecystectomy Family History Grandfather Cancer skin cancer Hyperlipidemia maternal Hypertension maternal Heart disease maternal Mother Diabetes Hyperlipidemia Stroke Heart disease Father Stroke Heart disease Other CAD (coronary artery disease) Clotting disorder Dementia Lung disease Psychiatric illness Denies family history of Colon cancer Ovarian cancer Chronic kidney disease (CKD) Breast cancer Anesthesia complication Bleeding disorder Uterine cancer Thyroid disease Social History Smoking and tobacco/nicotine status: never used tobacco/nicotine Data Anesthesia 04/23/25 06:09 04/23/25 06:43 Short CBC 04/23/25 Range/Units 06:09 WBC 5.69 (3.29-11.43) 10^3/uL Hgb 13.60 (11.27-16.99) g/dL Hct 39.6 (36-47) % MCV 89.2 (85-98) fl Plt Count 299 (157-399) 10^3/cmm Neut % (Auto) 57.4 % Neut # (Auto) 3.27 (1.8-7.7) 10^3/uL
[2025-04-23 07:42] LABS: PCP Screen Urine Negative (Negative)
[2025-04-23] MEDS: metroNIDAZOLE IV 500 MG/100 ML PREMIX 100 MG IV (07:53)
[2025-04-23] MEDS: ceFAZolin 2,000 mg SDV 2000 MG IVP (07:53)
[2025-04-23] MEDS: BUPivacaine 0.5% INJ 30 mL INJECTION (08:20)
[2025-04-23] MEDS: BUPivacaine liposome 13.3 mg/mL SDV 20 mL 266 MG INFILTRATI (08:21)
--- NOTE | 2025-04-23 08:30 | PC.NURSE ---
[place] Catheter Latex free catheter used, site scrubbed with baby shampoo and saline in place of betadine due to patient's allergy, per Dr. Brannon.
--- NOTE | 2025-04-23 09:58 | PM.OP2 ---
Brief Operative Note Date of procedure: 04/23/25 Pre-op diagnosis: menorrhagia Post-op diagnosis: same Procedure Done: total abdominal hysterectomy, bilateral salpingectomy Surgeon: Keith Brannon Estimated blood loss (mL): 200 Complications: none Post-op Plan: floor
--- NOTE | 2025-04-23 10:20 | PM.OP ---
Operative Report Date of procedure: April 23, 2025 Pre-op diagnosis: menorrhagia dysmenorrhea Post-op diagnosis: same Post-op findings: Normal uterus, tubes, and ovaries Normal and intact bladder Procedure done: Total abdominal hysterectomy Bilateral salpingectomy Implants: none Specimens removed/disposition: uterus and cervix bilateral fallopian tubes Surgeon: Keith Brannon MD Community Education Specialist: Rancho Lr MD Anesthesia: General Estimated blood loss (mL): 200 Complications: none Findings: see above Condition: stable Disposition: PACU Brief History: 35 y.o. with menorrhagia and dysmenorrhea Procedure: The patient was taken to the operating room and placed supine on the table. General endotracheal anesthesia was induced. The abdomen was prepped and draped in the usual sterile fashion. A krause catheter was placed which drained clear urine. A pfannenstiel incision was made over an old scar and carried down through skin and subcutaneous tissue and fascia. The fascia was sharply incised. The rectus muscles were and the abdomen was entered bluntly in the midline. The pelvic contents were visualized and examined. An Moe-O retractor was placed. The bowels were packed out of the way. The Ligasure device was used throughout for vessel sealing and cutting. The hysterectomy was begun by dividing and ligating the round ligaments bilaterally. The fallopian tubes were removed by clamping and ligating the mesosalpinx on each side. The ovaries were left intact. The vesicouterine peritoneal fold was incised in a transverse curvilinear fashion and sharply dissected downward mobilizing the bladder off the lower uterine segment. The uterine vessels were skeletonized and bilaterally divided and ligated. The procedure was carried down on both sides of the uterus until the cardinal uterosacral ligament was reached. The cervix was then incised. The vaginal cuff was identified and the mucosa was from the cervix. In this fashion, the uterus and tubes were removed leaving the vaginal cuff. The vaginal cuff was identified and the mucosa was sewn with O-Vicryl. The pelvis was inspected and irrigated. There was no bleeding. The abdominal packs were removed as was the retractor. The fascia was then closed with a continuous stitch of O-Vicryl. The subcutaneous tissue was irrigated and inspected for hemostasis. Exparel 80 cc was given subcutaneously for postoperative pain relief. The skin was then reapproximated using Insorb absorbable subcuticular skin nick. The patient was then placed supine, extubated, and taken to the recovery room. Postoperative condition: stable EBL: 200 cc Complications: none Sponge, needle, instruments counts were correct x two.
[2025-04-23] MEDS: fentaNYL 50 mcg/mL INJ 2mL IVP ×2 (10:23→10:36)
--- NOTE | 2025-04-23 10:50 | ANE.PACU2 ---
Inpatient post-anesthesia follow up: Airway intact: Yes Vital signs: Temperature 97.9 F Pulse Rate 85 Respiratory Rate 16 Blood Pressure 124/80 Pulse Oximetry 94 Oxygen Delivery Me thod Room Air Oxygen Flow Rate Fraction of Inspir ed Oxygen Hydration adequate: Yes Nausea and vomiting: No Pain level: 1 Mental status: Baseline
[2025-04-23] MEDS: HYDROcodone-acetaminophen 5-325 mg Tablet PO ×2 (11:44→17:07)
--- OUTSIDE RECORDS SUMMARY | 2025-04-23 12:56 | XMS_ITS | Clinical Summary ---
Author Organization [employer] Address [address] [facility] Attn: Epic Prelude ADT [place] [address] Care Team Providers Care Publicity Consultant Name Role Phone Serjio Gonsalves MD Primary Care Provider [phone] Allergies Active Allergy Reactions Criticality Noted Date [...] on file Legal Sex Female 10:40 AM RIDING TEACHER Gender Identity Not on file Sexual Orientation Not on file Last Filed Vital Signs Vital Sign Reading Time Taken Comments Blood Pressure 108/59 08/18/2019 9:17 PM RIDING TEACHER Pulse - - Temperature 37 C (98.6 F) 08/18/2019 9:17 PM RIDING TEACHER Respiratory Rate 16 08/18/2019 9:17 PM RIDING TEACHER Oxygen Saturation - - Inhaled Oxygen Concentration - - Weight 51 kg (112 lb 6.4 oz) 08/18/2019 9:17 PM RIDING TEACHER Height 147.3 cm (4' 10 ) 08/18/2019 9:17 PM RIDING TEACHER Body Mass Index 23.49 08/18/2019 9:17 PM RIDING TEACHER Plan of Treatment Health Maintenance Due Date Last Done Comments DTAP/TDAP/TD VACCINES (1 - Tdap) 01/08/2011 HEPATITIS B VACCINES (1 of 3 - 19+ 3-dose series) 12/21 HPV/Cotest (21-29) 01/08/2013 HPV VACCINES (1 - 3-dose SCDM series) 01/08/2019 CERVICAL CANCER SCREENING 01/08/2022 HPV/Cotest (30-65) 01/08/2022 PAP SMEAR 01/08/2022 INFLUENZA VACCINE (#1) 2025 Insurance [facility] [employer] MEDICAID Care Teams Publicity Consultant Relationship Specialty Start Date End Date Serjio Gonsalves MD [address] [address] PCP - General Family Practice 08/25/10
[2025-04-23] MEDS: HYDROmorphone 0.5 MG/0.5 ML INJ IVP (13:27)
[2025-04-24 04:00] VITALS: BP 100/60; PULSE 66; TEMP 36.7
[2025-04-24 04:39] LABS: Hematocrit 31.8 % (36-47); Hemoglobin 10.70 g/dL (11.27-16.99); Mean Corpuscular HGB Conc 33.6 g/dL (30-55); Mean Corpuscular Hemoglobin 30.2 pg (27-33); Mean Corpuscular Volume 89.8 fl (85-98); Platelet Count 242 10^3/cmm (157-399); Red Blood Count 3.54 10^6/uL (3.85-5.65); White Blood Count 8.75 10^3/uL (3.29-11.43)
[2025-04-24] MEDS: HYDROcodone-acetaminophen 5-325 mg Tablet PO (05:16)
[2025-04-24 09:40] VITALS: BP 103/58; PULSE 84; RESP 16; TEMP 36.5; O2SAT 98
--- NOTE | 2025-04-24 14:15 | P.PN_ITS ---
OUTSIDE SALES ASSOCIATE Subjective 2 Subjective: Interval history: c/o moderate incisional pain, relieved with pain medications tolerating PO well voiding, ambulating well Vitals/I&O/Wt Last Vital Signs Temp 97.7 F 04/24/25 09:40 Pulse 84 04/24/25 09:40 Resp 16 04/24/25 09:40 BP 103/58 04/24/25 09:40 Pulse Ox 98 04/24/25 09:40 O2 Del Method Room Air 04/23/25 22:00 Physical Exam 2 Narrative: VS afebrile, normal General comfortable, awake, alert Lungs: clear Cor: RRR Abd: soft, nondistended, nontender Wound clean and dry Ext: normal Urinary Catheter Management: Whatley: Cath Placed During This Visit: yes, but has since been removed by the nurse Reason for Continuing Indwelling Catheter: Decision to DC Catheter Urinary Catheter Date of Insertion: 04/23/25 Urinary Catheter Time of Insertion: 08:05 Date Urinary Catheter Removed: 04/24/25 Time Urinary Catheter Discontinued: 05:00 Data 04/24/25 04:34 A&P Assessment and plan 1. Hx of hysterectomy: POD #1 total abdominal hysterectomy, bilateral salpingectomy Doing well Plan to discharge to home today Return to ER if fever, chills, nausea, vomiting, severe pain, vaginal bleeding, swelling or pain in legs, chest pain, shortness of breath Return to see me in one week PDMP PDMP Reviewed: Last Reviewed 04/24/25 09:36 EDT by Keith Brannon MD Attestations 2 Medical Necessity Statement*: patient s/p hysterectomy, plan to discharge to home today Coding Level of Care Code Acute Code for Chg Fwd Diagnoses Hx of hysterectomy Z90.710
--- NOTE | 2025-04-24 14:20 | PM.OBGYDC ---
Discharge Providers FISCAL TECHNICIAN Date of Admission: 04/23/25 10:05 Date of Discharge: 04/24/25 Attending Provider at Admission: Keith Brannon MD Attending Provider at Discharge: Keith Brannon MD Consults: none Primary FISCAL TECHNICIAN: Keith Brannon MD Primary Care Provider: Sawyer Deal MD Diagnoses at Discharge Discharge Diagnosis 1. Hx of hysterectomy: Details from hospital stay: 35 y.o. with history of menorrhagia and dysmenorrhea admitted for hysterectomy total abdominal hysterectomy and bilateral salpingectomy performed without any complications patient did well postoperatively and was discharged to home on the first postoperative day Reason for Visit Reason for Visit: N94.6 Brief History: 35 y.o. with history of menorrhagia and dysmenorrhea admitted for hysterectomy Hospital Course Hospital Course 35 y.o. with history of menorrhagia and dysmenorrhea admitted for hysterectomy total abdominal hysterectomy and bilateral salpingectomy performed without any complications patient did well postoperatively and was discharged to home on the first postoperative day Physical Exam Narrative: VS afebrile, normal General comfortable, awake, alert Lungs: clear Cor: RRR Abd: soft, nondistended, nontender Wound clean and dry Ext: normal Urinary Catheter Management: Whatley: Cath Placed During This Visit: yes, but has since been removed by the nurse Reason for Continuing Indwelling Catheter: Decision to DC Catheter Urinary Catheter Date of Insertion: 04/23/25 Urinary Catheter Time of Insertion: 08:05 Date Urinary Catheter Removed: 04/24/25 Time Urinary Catheter Discontinued: 05:00 History History History 7 Term 4 1 Miscarriages/Ectopic 2 Living Children 5 Discharge Data Studies Completed and Pending Completed Studies During Hospitalization Category Date Time Status Pathology: Surgical [PTH] Routine Pth 04/23/25 09:23 Completed Laboratory Results WBC 8.75 10^3/uL (3.29-11.43) 04/24/25 04:34 RBC 3.54 10^6/uL (3.85-5.65) L 04/24/25 04:34 Hgb 10.70 g/dL (11.27-16.99) L 04/24/25 04:34 Hct 31.8 % (36-47) L 04/24/25 04:34 MCV 89.8 fl (85-98) 04/24/25 04:34 MCH 30.2 pg (27-33) 04/24/25 04:34 MCHC 33.6 g/dL (30-55) 04/24/25 04:34 RDW 12.2 % (12.1-15.1) 04/24/25 04:34 Plt Count 242 10^3/cmm (157-399) 04/24/25 04:34 MPV 9.5 fL (7.4-10.4) 04/24/25 04:34 Neut % (Auto) 57.4 % 04/23/25 06:09 Lymph % (Auto) 33.9 % 04/23/25 06:09 Gordon % (Auto) 6.2 % 04/23/25 06:09 Eos % (Auto) 1.6 % 04/23/25 06:09 Baso % (Auto) 0.7 % 04/23/25 06:09 Neut # (Auto) 3.27 10^3/uL (1.8-7.7) 04/23/25 06:09 Lymph # (Auto) 1.9 10^3/uL (0.8-4.8) 04/23/25 06:09 Gordon # (Auto) 0.4 10^3/uL (0.2-0.9) 04/23/25 06:09 Eos # (Auto) 0.1 10^3/uL (0.0-0.8) 04/23/25 06:09 Baso # (Auto) 0.0 10^3/uL (0.0-0.1) 04/23/25 06:09 Nucleated RBC % (auto) 0 % 04/23/25 06:09 Nucleated RBCs # 0.0 /100WBC 04/23/25 06:09 Creatinine Cancelled 04/23/25 06:43 Specific Swisher Cancelled 04/23/25 06:43 Urine pH Cancelled 04/23/25 06:43 Urine Oxidant Cancelled 04/23/25 06:43 Urine HCG, Qual Negative (Negative) 04/23/25 05:49 Urine Opiates Screen Negative ng/mL (Negative) 04/23/25 06:43 Urine Opiates Level Cancelled 04/23/25 06:43 Urine Oxycodone Cancelled 04/23/25 06:43 U Methadone Metabolites Cancelled 04/23/25 06:43 Barbiturates Cancelled 04/23/25 06:43 Ur Barbiturates Screen Negative ng/mL (Negative) 04/23/25 06:43 Phencyclidine (PCP) Cancelled 04/23/25 06:43 Ur Phencyclidine Scrn Negative ng/mL (Negative) 04/23/25 06:43 Amphetamines Cancelled 04/23/25 06:43 Ur Amphetamines Screen Negative ng/mL (Negative) 04/23/25 06:43 Benzodiazepines Cancelled 04/23/25 06:43 U Benzodiazepines Scrn Negative ng/mL (Negative) 04/23/25 06:43 Cocaine Metabolite Cancelled 04/23/25 06:43 Urine Cocaine Screen Negative ng/mL (Negative) 04/23/25 06:43 U Marijuana (THC) Screen Negative ng/mL (Negative) 04/23/25 06:43 U Marijuana Metabolites Cancelled 04/23/25 06:43 Abn Spec Valid Drug Scn Cancelled 04/23/25 06:43 Urine Drug Screen Note Cancelled 04/23/25 06:43 Ur Drug Screen Comment Cancelled 04/23/25 06:43 Blood Type A Positive 04/23/25 06:09 Rho(D) Type Rh positive 04/23/25 06:09 Antibody Screen Negative 04/23/25 06:09 Procedures Performed total abdominal hysterectomy and bilateral salpingectomy Vitals Last Vital Signs Temp 97.7 F 04/24/25 09:40 Pulse 84 04/24/25 09:40 Resp 16 04/24/25 09:40 BP 103/58 04/24/25 09:40 Pulse Ox 98 04/24/25 09:40 O2 Del Method Room Air 04/23/25 22:00 Results Labs OB ([facility]): Obstetrics US 06/25/24 Blood Type A Positive 04/23/25 Antibody Screen Negative 04/23/25 Hct, (36-47) 37.0 % 04/30/25 Hgb, (11.27-16.99) 12.40 g/dL 04/30/25 Rho(D) Type Rh positive 04/23/25 Plt Count, (157-399) 347 10^3/cmm 04/30/25 Hep Bs Antigen, (Nonreactive) Non-reactive 03/06/24 Hepatitis C Antibody, (Nonreactive) Non-reactive 03/06/24 Rubella IgG Antibody, (0.0-10.0) 92.6 IU/mL H 03/06/24 RPR, (Nonreactive) Nonreactive 03/06/24 HIV 1&2 Ab & HIV 1 Ag, (Non-Reactiv) Non-reactive 03/06/24 C.trachomatis RNA (TMA), (NOT DETECTED) Not detected 03/30/24 N.gonorrhoeae RNA (TMA), (NOT DETECTED) Not detected 03/30/24 T. vaginalis Amp RNA, (NOT DETECTED) Not detected 03/30/24 Chlamydia/GC Comment See note 03/30/24 Cystic Fibrosis Screen Negative 03/06/24 Glucose 1 Hr 50 gm, (85-140) 132 mg/dL 06/05/24 Ser , Semi-Qnt 45399.00 mIU/mL 01/30/24 HCG, Qual, (Negative) Negative 02/14/25 Urine Opiates Screen, (Negative) Negative ng/mL 04/23/25 Ur Barbiturates Screen, (Negative) Negative ng/mL 04/23/25 Ur Phencyclidine Scrn, (Negative) Negative ng/mL 04/23/25 Ur Amphetamines Screen, (Negative) Negative ng/mL 04/23/25 U Benzodiazepines Scrn, (Negative) Negative ng/mL 04/23/25 Urine Cocaine Screen, (Negative) Negative ng/mL 04/23/25 U Marijuana (THC) Screen, (Negative) Negative ng/mL 04/23/25 Micro Urine Specimen 08/03/24 Pap Smear Interpret See note 02/25/25 Discharge Plan Discharge Patient Disposition: Home Condition: Stable Prescriptions: Continued venlafaxine 75 mg capsule,extended release 24hr 75 mg PO QPM Qty: 90 1RF trazodone 50 mg tablet 50 mg PO BEDTIME PRN (Reason: Sleep) Qty: 90 1RF hydroxyzine pamoate 25 mg capsule 50 mg PO Q6H PRN (Reason: Anxiety) Qty: 90 1RF bupropion HCl 150 mg tablet extended release 24 hr 150 mg PO DAILY Qty: 90 1RF No Action hydrocodone-acetaminophen 5-325 mg tablet 1 tab PO Q6H PRN (Reason: pain) 7 Days Qty: 28 0RF hydrocodone-acetaminophen 5-300 mg tablet 1 tab PO Q8H PRN (Reason: pain) 10 Days Qty: 30 0RF ondansetron 4 mg tablet,disintegrating 4 mg PO Q6H PRN (Reason: nausea and vomiting) Qty: 14 0RF Discharge Order = DC NOW: Discharge Order (Routine); Ordered 04/24/25 Ordered By: Keith Brannon Referrals: Keith Brannon MD [Physician, FISCAL TECHNICIAN] - 05/02/25 1:45 pm Discharge Diet: Usual diet Discharge Activity: Increase activity as tolerated Patient Instructions: Acute Wound Care (DC), Opioid Safety (DC), Hysterectomy (GEN), OB Abdominal Surgery - [facility], OB Discharge Report, OB Food/Drug Interaction Guide, Opioid Safety, Post Anesthesia Care, Patient Portal & Lenora Instructions Discharge Attestations FISCAL TECHNICIAN Time Spent in Discharge Care*: less than 30 min Coding Level of Care Code Acute Code for Chg Fwd Diagnoses Hx of hysterectomy Z90.710
== END 2025-04-24 09:50 | disposition home or self-care (01) | DRG 743 ==
LOC: OBGYN 12:52
PROVIDERS: Anesthesiology; Admitting Provider Obstetrics & Gynecology; PCP Family Medicine; Visit Provider Obstetrics & Gynecology
PROC: 0UT90ZZ Resection of Uterus, Open Approach (ICD-10-PCS; CPT 58150; principal; 2025-04-23 07:00)
PROC: 0UT94ZZ Resection of Uterus, Percutaneous Endoscopic Approach (ICD-10-PCS; CPT 58700; 2025-04-23 07:00)
DX: N92.0 Excessive and frequent menstruation with regular cycle (principal); N94.6 Dysmenorrhea, unspecified; Z88.2 Allergy status to sulfonamides; Z90.49 Acquired absence of other specified parts of digestive tract
CPT/HCPCS: 36415; 51702; 59025; 80306; 81025; 85025; 85027; 86850; 86900; 88307; 99211; A4216; J0330; J0666; J0690; J1100; J1171; J1200; J1885; J2250; J2405; J2704; J3010; J3490; J7030; J7121; J9999

== ENCOUNTER 2025-04-30 19:24 | Emergency (ER) | payer MEDICAID, SELFPAY ==
--- OUTSIDE RECORDS SUMMARY | 2025-04-30 19:29 | XMS_ITS | Clinical Summary ---
Author Organization [email or web address] Address [address] [facility] Attn: Epic Prelude ADT [place] [address] Care Team Providers Care Shade Cutter Name Role Phone Serjio Gonsalves MD Primary Care Provider [phone] Allergies Active Allergy Reactions Criticality Noted Date [...] on file Legal Sex Female 10:40 AM BELL SPINNER Gender Identity Not on file Sexual Orientation Not on file Last Filed Vital Signs Vital Sign Reading Time Taken Comments Blood Pressure 108/59 08/18/2019 9:17 PM BELL SPINNER Pulse - - Temperature 37 C (98.6 F) 08/18/2019 9:17 PM BELL SPINNER Respiratory Rate 16 08/18/2019 9:17 PM BELL SPINNER Oxygen Saturation - - Inhaled Oxygen Concentration - - Weight 51 kg (112 lb 6.4 oz) 08/18/2019 9:17 PM BELL SPINNER Height 147.3 cm (4' 10 ) 08/18/2019 9:17 PM BELL SPINNER Body Mass Index 23.49 08/18/2019 9:17 PM BELL SPINNER Plan of Treatment Health Maintenance Due Date Last Done Comments DTAP/TDAP/TD VACCINES (1 - Tdap) 01/08/2011 HEPATITIS B VACCINES (1 of 3 - 19+ 3-dose series) 12/21 HPV/Cotest (21-29) 01/08/2013 HPV VACCINES (1 - 3-dose SCDM series) 01/08/2019 CERVICAL CANCER SCREENING 01/08/2022 HPV/Cotest (30-65) 01/08/2022 PAP SMEAR 01/08/2022 INFLUENZA VACCINE (#1) 2025 Insurance [facility] [employer] [facility] MEDICAID Care Teams Shade Cutter Relationship Specialty Start Date End Date Serjio Gonsalves MD [address] [address] PCP - General Family Practice 08/25/10
--- OUTSIDE RECORDS SUMMARY | 2025-04-30 19:30 | XMS_ITS | Patient Health Record ---
Author Organization [facility] Address [address] [place] [address] Care Team Providers Care Teacher Drama Name Role Phone Javier Epps Primary Care Provider Allergies Allergen (clinical drug ingredient) Drug/Non Drug [...] tablet as needed Orally every 6 hrs Not-Taking/ID N Zithromax Z-Jose Francisco Not- Taking/PRN Social History Sex Assigned At : Social History Observation Description Sex Assigned At Female Plan Of Treatment No Information Insurance Providers Payer Name Payer Address Payer Phone Subscriber Number Group Number Insured Name Patient Relationship to Insured Coverage Start Date Coverage End Date [facility] [address] [place] [phone] [id number] Mateus English Self - patient is the insured [employer] [address] [address] [place] [phone] [id number] Mateus English Self - patient is the insured Medical (General) History Medical History History ICD Code Seasonal allergies Asthma Sinus trouble Concussion fever blister possibly lupus
[2025-04-30 19:33] VITALS: BP 114/78; PULSE 100; RESP 22; TEMP 36.9; O2SAT 95
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
[2025-04-30] MEDS: ondansetron 2 mg/ML SDV 2 mL 4 MG IVP (20:01)
[2025-04-30] MEDS: HYDROmorphone 0.5 MG/0.5 ML INJ IVP (20:01)
[2025-04-30 20:02] VITALS: BP 111/69; PULSE 96; RESP 17; O2SAT 98
[2025-04-30 20:12] LABS: Hematocrit 37.0 % (36-47); Hemoglobin 12.40 g/dL (11.27-16.99); Mean Corpuscular HGB Conc 33.5 g/dL (30-55); Mean Corpuscular Hemoglobin 30.1 pg (27-33); Mean Corpuscular Volume 89.8 fl (85-98); Nucleated Red Blood Cells % 0 %; Platelet Count 347 10^3/cmm (157-399); Red Blood Count 4.12 10^6/uL (3.85-5.65); White Blood Count 8.40 10^3/uL (3.29-11.43)
[2025-04-30 20:30] VITALS: BP 130/96; PULSE 84; O2SAT 94
[2025-04-30 20:31] LABS: Alanine Aminotransferase 75 U/L (0-33); Albumin Level 4.0 g/dL (3.5-5.2); Alkaline Phosphatase 224 U/L (35-105); Anion Gap 12.7 (5-19); Aspartate Amino Transferase 47 U/L (0-32); Blood Urea Nitrogen 10 mg/dL (6-20); Calcium 9.0 mg/dL (8.5-10.5); Carbon Dioxide 25 mmol/L (22-29); Chloride 105 mmol/L (98-107); Globulin 3.1 g/dL (1.3-4.6); Glucose 109 mg/dL (65-115); Lipase 18 U/L (13-60); Osmolality Calculated 288 mOsm/kg (285-295); Potassium 3.7 mmol/L (3.5-5.1); Sodium 139 mmol/L (136-145); Total Protein 7.1 g/dL (6.6-8.7)
[2025-04-30 21:00] VITALS: BP 118/82; PULSE 95; O2SAT 92
[2025-04-30 21:09] VITALS: BP 118/82; PULSE 95; O2SAT 93
== END 2025-04-30 21:11 | disposition home or self-care (01) ==
PROVIDERS: Emergency Provider Emergency Medicine; PCP Family Medicine
DX: R10.30 Lower abdominal pain, unspecified (principal); Z86.73 Personal history of transient ischemic attack (TIA), and cerebral infarction without residual deficits; Z98.890 Other specified postprocedural states
CPT/HCPCS: 36415; 80053; 83690; 85025; 96374; 96375; 99284; J1171; J2405

== ENCOUNTER → 2025-05-13 14:28 | Outpatient (BNVA) | payer MEDICAID, SELFPAY | PROVIDERS: PCP Family Medicine; Visit Provider Obstetrics & Gynecology | DX: G89.18 Other acute postprocedural pain (principal) | CPT/HCPCS: 84315 ==